=== PATIENT | male | born 1965 | race Caucasian/White ===

== ENCOUNTER 2018-03-18 21:26 | Emergency (ER) | payer OTHER ==
[2018-03-18] MEDS ORDERED: CODEINE 30MG/APAP 300MG TAB ONE (21:55)
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
== END 2018-03-19 00:10 | disposition home or self-care (01) ==
LOC: ER 21:26
DX: S02.80XA Fracture of other specified skull and facial bones, unspecified side, initial encounter for closed fracture (principal); Y04.8XXA Assault by other bodily force, initial encounter; Y93.89 Activity, other specified; Y92.89 Other specified places as the place of occurrence of the external cause; Z94.4 Liver transplant status; Z94.0 Kidney transplant status; I10 Essential (primary) hypertension
CPT/HCPCS: 70450; 70486; 76377; 99284

== ENCOUNTER 2018-12-20 11:12 | Emergency (ER) | payer OTHER ==
--- OUTSIDE RECORDS SUMMARY | 2018-12-20 11:18 | XMS REPORT | Clinical Summary ---
:1965 Author Organization [facility] Address [address] [place] [address] Care Team Providers Name Role Phone Hannah Perez MD Primary Care Provider Allergies Active Allergy Reactions Severity Noted Date Comments Adhesive Tape-Silicones 04/03/2018 Allergic to tape left on up to 3 days Doxercalciferol 10/22/2018 Medications Medication Sig Dispensed Refills Start Date End Date Status predniSONE Take 5 mg by 0 Active (DELTASONE) 5 mg mouth every tablet morning. tacrolimus Take 2 mg by 0 Active (PROGRAF) 1 MG mouth 2 (two) capsule times a day. LISINOPRIL ORAL Take by mouth 0 Active nightly. metoprolol TAKE 1 TABLET 180 tablet 0 12/02/2018 Active tartrate BY MOUTH TWICE (LOPRESSOR) 100 mg DAILY tablet ferrous sulfate Take by mouth. 0 Active (IRON ORAL) diltiazem Take 90 mg by 0 10/03/2014 Discontinued (CardIZEM) 120 MG mouth 2 (two) 8 tablet times a day. lisinopril Take 20 mg by 0 Discontinued (PRINIVIL,ZESTRIL) mouth nightly. 8 20 mg tablet metoprolol Take 100 mg by 0 10/03/2014 Discontinued tartrate mouth 2 (two) 9 (LOPRESSOR) 100 mg times a day. tablet tacrolimus Take 2 mg by 0 Discontinued (PROGRAF) 1 MG mouth 2 (two) 8 capsule times a day. darbepoetin Inject 0.3 mL 1.2 mL 0 08/26/2018 ailyn-polysorbate (60 mcg total) 8 (ARANESP) 60 under the skin mcg/0.3 mL once a week at syringeIndications 4pm for 30 : Anemia due to days. Renal Failure ferrous sulfate Take 1 tablet 60 tablet 0 08/23/2018 325 (65 FE) MG (325 mg total) 8 tablet by mouth 2 (two) times a day with meals for 30 days. multivitamin with Take 1 tablet 30 tablet 0 08/23/2018 minerals tablet by mouth daily 8 for 30 days. pantoprazole Take 1 tablet 30 tablet 0 08/24/2018 (PROTONIX) 40 MG (40 mg total) 8 EC tablet by mouth daily for 30 days. tacrolimus Take 2 120 capsule 0 08/24/2018 (PROGRAF) 1 MG capsules (2 mg 8 capsule total) by mouth 2 (two) times a day for 30 days. ramelteon Take 1 tablet 30 tablet 0 08/24/2018 (ROZEREM) 8 mg (8 mg total) 8 tablet by mouth nightly as needed for sleep for up to 30 days. acetaminophen-code Take 1 tablet 40 tablet 0 10/03/2018 ine (TYLENOL WITH by mouth every 9 CODEINE #3) 300-30 4 (four) hours mg per tablet as needed for moderate pain for up to 10 days. Active Problems Problem Noted Date Other complication due to venous access device 11/26/2018 Overview: Added automatically from request for surgery [id number] ESRD (end stage renal disease) 09/17/2018 Overview: Added automatically from request for surgery [id number] Severe protein-calorie malnutrition 08/19/2018 Acute hyperkalemia 08/19/2018 High anion gap metabolic acidosis 08/19/2018 HARVEY (acute kidney injury) 08/18/2018 Essential hypertension 12/21/2016 Overview: Last Assessment & Plan: Recently hypertensive with pressures to 170s/90s on diltiazem metoprolol and lisinopril. F/u with PCP regarding management of chronic hypertension. Mixed hyperlipidemia 12/21/2016 Overview: Last Assessment & Plan: He has hypertriglyceridemia and mild hypercholesterolemia. This might be a side effect from Rapamune. These will need to be monitored closely. We will check lipid panel and HbA1c before next visit to [facility] for other metabolic problems. You should have regular follow-up with PCP. Number for [facility] primary care office was given. Hx of kidney transplant 12/21/2016 Overview: Last Assessment & Plan: Worsening creatinine function. Most recently 2.48 in 06/2017, from 1.4 in 2013. Not currently requiring dialysis. States he was told to schedule an appt with his vascular surgeon for AV fistula creat ion in preparation of starting HD. He has not yet contact his surgeon for an appt. S/P liver transplant 12/21/2016 Overview: Last Assessment & Plan: He underwent OLT in 1989 for primary sclerosing cholangitis. Per chart review, graft function is good. No history of rejection. No evidence of recurrent PSC so far. IS managed by Dr. Mendoza. Encounters Date Type Specialty Care Team Description 12/12/2018 Orders Only Cardiovascular Andrade Tracy, ESRD (end stage renal disease) ([facility]) (Primary Dx); MA Other complication due to venous access device, initial encounter ( [facility]) 12/10/2018 Orders Only Cardiovascular TracyAndrade, MA 12/10/2018 Orders Only Cardiovascular TracyAndrade arango, ESRD (end stage MA renal disease) ([facility]) (Primary Dx) 12/07/2018 Anesthesia Event Vascular Surgery Hannah Nguyen MD 12/07/2018 Surgery Vascular Surgery Anahi Paz, RIGHT ARM FISTULOGRAM, ANGIOPLASTY, 12/07/2018 Hospital Encounter Vascular Surgery Anahi Paz, Other complication MD due to venous access device, initial encounter ([facility]) 12/07/2018 Hospital Encounter Radiology Anahi Paz, ESRD (end stage MD renal disease) on dialysis ([facility]) 12/06/2018 Telephone Family Medicine Hannah Perez MD 12/01/2018 Refill Nephrology Jatin Roque MD 12/01/2018 Refill Internal Medicine Brad Herrera DO 11/26/2018 Office Visit Cardiovascular Anahi Paz, Other complication due to venous access device, initial encounter ([facility]) (Primary Dx) 10/22/2018 Office Visit Cardiovascular Anahi Paz, ESRD (end stage MD renal disease) (HCC) (Primary Dx) 10/03/2018 Surgery Vascular Surgery Anahi Paz, creation right MD radiocephalic av fistula 10/03/2018 Anesthesia Event Vascular Surgery Dusty Seaman MD 10/03/2018 Hospital Encounter Vascular Surgery Anahi Paz MD 09/27/2018 Refill Internal Medicine Brad Herrera, 09/17/2018 Office Visit Cardiovascular Anahi Paz, ESRD (end stage MD renal disease) (HCC) (Primary Dx) 09/14/2018 Abstract Transplant Mary Blanc RN 09/14/2018 Documentation Transplant Cole, Patient call RAGHU Lucas 09/14/2018 Telephone Transplant Jayashree, Medication Problem; RAGHU Hernandez Complaint 09/05/2018 Orders Only Nephrology Laila Mcgee MA 09/04/2018 Telephone Family Medicine Hannah Perez MD 08/23/2018 Refill Internal Medicine Brad Herrera, 08/18/2018 Hospital Encounter General Internal Juanito Pendleton HARVEY (acute kidney injury) (HCC) (Primary Dx); - Medicine MD Alden Kidney transplant as cause of abnormal reaction or later complication; 08/24/2018 Jhoana Rosa, Acute right hip pain Rama Moreno MD 05/25/2018 Telephone Family Medicine Hannah Tyler MA 05/24/2018 Office Visit Family Medicine Chris, Serum potassium elevated ( Primary Dx); Hannah Kessler, Elevated serum creatinine; Muscular atrophy, unspecified site 04/03/2018 Pre-Admit Testing Pre-Admission Testing Diandra Porter Preop examination Appointment MD Maritza (Primary Dx) 03/01/2018 Orders Only Transplant Ladonna Suazo RN after 12/19/2017 Immunizations Name Dates Previously Given Next Due FLUCELVAX QUAD PF (0.5mL syringe) 08/24/2018 Social History Tobacco Use Types Packs/Day Years Used Date Former Smoker Smokeless Tobacco: Never Used Alcohol Use Drinks/Week oz/Week Comments No Sex Assigned at Date Recorded Not on file Job Start Date Occupation Industry Not on file Not on file Not on file Travel History Travel Start Travel End No recent travel history available. Last Filed Vital Signs Vital Sign Reading Time Taken Blood Pressure 117/72 12/07/2018 11:50 AM [employer] Pulse 70 12/07/2018 11:50 AM [employer] Temperature 36.6 C (97.8 F) 12/07/2018 11:50 AM [employer] Respiratory Rate 20 12/07/2018 11:50 AM [employer] Oxygen Saturation 100% 12/07/2018 11:50 AM [employer] Inhaled Oxygen Concentration - - Weight 49 kg (108 lb) 12/07/2018 8:10 AM [employer] Height 175.3 cm (5' 9") 12/07/2018 8:10 AM [employer] Body Mass Index 15.95 12/07/2018 8:10 AM [employer] Plan of Treatment Date Type Specialty Care Team Description 12/24/2018 Appointment Procedural Cardiology Anahi Paz MD [address] [facility] [address] [place] [id number] [phone] 12/31/2018 Appointment Radiology Anahi Paz MD [address] [facility] [address] [place] [address] [phone] 12/31/2018 Office Visit Cardiovascular Anahi Paz MD [address] [facility] [address] [place] [address] [id number] Health Maintenance Due Date Last Done Comments SHINGLES VACCINES (#1) 2014 COLON CANCER SCREENING 08/22/2028 08/22/2018 INFLUENZA VACCINE Completed 08/24/2018 Implants Implanted Type Area Lift Driver Device Shelf Model / Identifier Expiration Serial / Date Lot Clip Ligtng Weck Hemoclip Plus W/ Tape Ti Med - [id number] Medical Right: [employer] 03/27/2023 [id number] / Implanted: Qty: 1 on 10/03/2018 by Anahi Paz MD Clips for Arm, / Internal Use Upper [id number] Clip Ligtng [place] Hemoclip Plus W/ Tape Ti - [id number] Medical Right: WECK CLOSURE 10/30/2022 [id number] / Implanted: Qty: 2 on 10/03/2018 by Anahi Paz MD Clips for Arm, SYSTEMS / Internal Use Upper [id number] Procedures Procedure Name Priority Date/Time Associated Diagnosis Comments POC GLUCOSE Routine 12/07/2018 11:33 Results for this AM [employer] procedure are in the results section. OR FL < 1 HOUR Routine 12/07/2018 11:10 ESRD (end stage Results for this AM [employer] renal disease) on procedure are in dialysis (HCC) the results section. FISTULOGRAPHY, 12/07/2018 10:05 Other complication DIALYSIS SHUNT, AND AM [employer] due to venous access DECLOTTING device, initial encounter ([facility]) POC PANEL 4 Routine 12/07/2018 8:43 Results for this AM [employer] procedure are in the results section. US DUPLEX Routine 11/09/2018 10:14 ESRD (end stage Results for this HEMODIALYSIS AVG AVF AM [employer] renal disease) ([facility]) procedure are in ACCESS the results section. POC GLUCOSE Routine 10/03/2018 11:32 Results for this AM [employer] procedure are in the results section. POC GLUCOSE Routine 10/03/2018 9:57 Results for this AM [employer] procedure are in the results section. CREATION, AV FISTULA, 10/03/2018 8:00 ESRD (end stage UPPER EXTREMITY, AM [employer] renal disease) ([facility]) DISTAL Case Notes EXTENDED RECOVERY NEEDED, @[address] [place] [address] R/S FROM 09/24 TO 10/03-09/21/18TW Special Needs EXTENDED RECOVERY NEEDED ANESTHESIA PERIPHERAL BLOCK Routine 10/03/2018 7:53 AM [employer] Procedure Note - Dusty Seaman MD - 10/03/2018 7:53 AM [employer] Peripheral Block Performed by: Dusty Seaman MD Authorized by: Dusty Seaman MD Patient Location: Pre-op Start Time: 10/03/2018 7:40 AM End Time: 10/03/2018 7:50 AM Reason for Block: at surgeon's request, primary anesthetic Staff: Anesthesiologist: Dusty Seaman MD Performed by: Anesthesiologist Preprocedure: patient identified, IV checked, site and side verified, risks and benefits discussed, procedure verified, surgical consent complete, patient position confirmed, monitors and equipment checked, pre-op evaluation complete and site marked Time Out Performed: 10/03/2018 7:40 AM Peripheral Nerve Block: Patient Position: Supine Prep: ChloraPrep Monitoring: Blood pressure monitoring, heart rate and continuous pulse oximetry Block Type: Interscalene Laterality: Right Injection Technique: Single injection Procedures: ultrasound guided and nerve stimulator Ultrasound documentation: Printed/placed in chart Loss of Twitch: 0.2 mA Needle: Needle Type: Pajunk Needle Gauge: 19 G Needle Length: 2 in Assessment: Injection Assessment: Visualized needle/local anesthetic surrounding nerve , visualized pertinent vascular structures and nerves, needle tip visualized at all times during injection of medication, no symptoms of intraneural/intravenous injection and intermittent aspiration during local anesthetic administration Paresthesia Pain: None Heart Rate Change: No Slow Fractionated Injection: Yes Block outcome: No apparent complications, patient tolerated procedure well and patient comfortable Notes: Single uncomplicated block with good visualization of nerve and needle throughout POC PANEL 4 Routine 10/03/2018 6:54 Results for this AM [employer] procedure are in the results section. POC GLUCOSE Routine 08/24/2018 5:09 Results for this PM [employer] procedure are in the results section. POC GLUCOSE Routine 08/24/2018 1:49 Results for this PM [employer] procedure are in the results section. US VEIN MAPPING UPPER Routine 08/24/2018 12:30 Results for this EXTREMITY BILATERAL PM [employer] procedure are in the results section. POC GLUCOSE Routine 08/24/2018 8:04 Results for this AM [employer] procedure are in the results section. HC COMPLETE BLD COUNT Routine 08/24/2018 5:30 Results for this W/AUTO DIFF AM [employer] procedure are in the results section. FK506 TACROLIMUS LEVEL, Routine 08/24/2018 5:30 Results for this RANDOM AM [employer] procedure are in the results section. ESTIMATED GFR Routine 08/24/2018 4:00 Results for this AM [employer] procedure are in the results section. MAGNESIUM LEVEL Routine 08/24/2018 4:00 Results for this AM [employer] procedure are in the results section. PHOSPHORUS LEVEL Routine 08/24/2018 4:00 Results for this AM [employer] procedure are in the results section. BASIC METABOLIC PANEL Routine 08/24/2018 4:00 Results for this AM [employer] procedure are in the results section. POC GLUCOSE Routine 08/23/2018 9:12 Results for this PM [employer] procedure are in the results section. POC GLUCOSE Routine 08/23/2018 4:42 Results for this PM [employer] procedure are in the results section. POC GLUCOSE Routine 08/23/2018 12:18 Results for this PM [employer] procedure are in the results section. POC GLUCOSE Routine 08/23/2018 8:18 Results for this AM [employer] procedure are in the results section. HC COMPLETE BLD COUNT Routine 08/23/2018 5:10 Results for this W/AUTO DIFF AM [employer] procedure are in the results section. FK506 TACROLIMUS LEVEL, Routine 08/23/2018 5:10 Results for this RANDOM AM [employer] procedure are in the results section. ESTIMATED GFR Routine 08/23/2018 4:00 Results for this AM [employer] procedure are in the results section. PHOSPHORUS LEVEL Routine 08/23/2018 4:00 Results for this AM [employer] procedure are in the results section. MAGNESIUM LEVEL Routine 08/23/2018 4:00 Results for this AM [employer] procedure are in the results section. BASIC METABOLIC PANEL Routine 08/23/2018 4:00 Results for this AM [employer] procedure are in the results section. POC GLUCOSE Routine 08/22/2018 9:39 Results for this PM [employer] procedure are in the results section. POC GLUCOSE Routine 08/22/2018 5:27 Results for this PM [employer] procedure are in the results section. VENOUS BLOOD GAS Routine 08/22/2018 3:20 Results for this PM [employer] procedure are in the results section. HEMODIALYSIS Routine 08/22/2018 3:10 PM [employer] POC GLUCOSE Routine 08/22/2018 1:53 Results for this PM [employer] procedure are in the results section. US DUPLEX ARTERIAL Routine 08/22/2018 12:15 Results for this LOWER EXTREMITY PM [employer] procedure are in BILATERAL the results section. US DUPLEX VENOUS LOWER Routine 08/22/2018 10:42 Results for this EXTREMITY BILATERAL AM [employer] procedure are in the results section. OCCULT BLOOD, STOOL Routine 08/22/2018 7:30 Results for this AM [employer] procedure are in the results section. ESTIMATED GFR Routine 08/22/2018 6:10 Results for this AM [employer] procedure are in the results section. HEPATITIS ACUTE PANEL Routine 08/22/2018 6:10 Results for this AM [employer] procedure are in the results section. HIV AG/AB COMBINATION Routine 08/22/2018 6:10 Results for this AM [employer] procedure are in the results section. LDH Routine 08/22/2018 6:10 Results for this AM [employer] procedure are in the results section. HAPTOGLOBIN Routine 08/22/2018 6:10 Results for this AM [employer] procedure are in the results section. RETICULOCYTE COUNT Routine 08/22/2018 6:10 Results for this AM [employer] procedure are in the results section. FK506 TACROLIMUS LEVEL, Routine 08/22/2018 6:10 Results for this RANDOM AM [employer] procedure are in the results section. IONIZED CALCIUM Routine 08/22/2018 6:10 Results for this AM [employer] procedure are in the results section. PHOSPHORUS LEVEL Routine 08/22/2018 6:10 Results for this AM [employer] procedure are in the results section. MAGNESIUM LEVEL Routine 08/22/2018 6:10 Results for this AM [employer] procedure are in the results section. HC COMPLETE BLD COUNT Routine 08/22/2018 6:10 Results for this W/AUTO DIFF AM [employer] procedure are in the results section. BASIC METABOLIC PANEL Routine 08/22/2018 6:10 Results for this AM [employer] procedure are in the results section. POC GLUCOSE Routine 08/21/2018 7:31 Results for this PM [employer] procedure are in the results section. URINALYSIS SCREEN AND Routine 08/21/2018 4:00 Results for this MICROSCOPY, WITH REFLEX PM [employer] procedure are in TO CULTURE the results section. URINE CULTURE Routine 08/21/2018 4:00 Results for this PM [employer] procedure are in the results section. HEPATITIS B SURFACE Routine 08/21/2018 2:21 Results for this ANTIGEN PM [employer] procedure are in the results section. HEPATITIS B CORE Routine 08/21/2018 2:21 Results for this ANTIBODY TOTAL PM [employer] procedure are in the results section. HEPATITIS B SURFACE AB, Routine 08/21/2018 2:21 Results for this QUANTITATIVE PM [employer] procedure are in the results section. VENOUS BLOOD GAS Routine 08/21/2018 1:16 Results for this PM [employer] procedure are in the results section. POC GLUCOSE Routine 08/21/2018 12:32 Results for this PM [employer] procedure are in the results section. HEMOGLOBIN & HEMATOCRIT Routine 08/21/2018 12:15 Results for this PM [employer] procedure are in the results section. POC GLUCOSE Routine 08/21/2018 8:43 Results for this AM [employer] procedure are in the results section. HEMODIALYSIS Routine 08/21/2018 8:40 AM [employer]ER HC COMPLETE BLD COUNT Routine 08/21/2018 5:50 Results for this W/AUTO DIFF AM [employer] procedure are in the results section. ESTIMATED GFR Routine 08/21/2018 4:00 Results for this AM [employer] procedure are in the results section. IONIZED CALCIUM Routine 08/21/2018 4:00 Results for this AM [employer] procedure are in the results section. PHOSPHORUS LEVEL Routine 08/21/2018 4:00 Results for this AM [employer] procedure are in the results section. MAGNESIUM LEVEL Routine 08/21/2018 4:00 Results for this AM [employer] procedure are in the results section. BASIC METABOLIC PANEL Routine 08/21/2018 4:00 Results for this AM [employer] procedure are in the results section. POC GLUCOSE Routine 08/21/2018 1:04 Results for this AM [employer] procedure are in the results section. HEPATITIS B SURFACE Routine 08/20/2018 8:34 Results for this ANTIGEN PM [employer] procedure are in the results section. POC GLUCOSE Routine 08/20/2018 4:16 Results for this PM [employer] procedure are in the results section. HEMODIALYSIS Routine 08/20/2018 1:20 PM [employer]ER POC GLUCOSE Routine 08/20/2018 12:06 Results for this PM [employer] procedure are in the results section. POC GLUCOSE Routine 08/20/2018 9:59 Results for this AM [employer] procedure are in the results section. IR TUNNELED DIALYSIS Routine 08/20/2018 9:52 Results for this CATHETER PLACEMENT AM [employer] procedure are in the results section. POC GLUCOSE Routine 08/20/2018 8:15 Results for this AM [employer] procedure are in the results section. HC COMPLETE BLD COUNT Routine 08/20/2018 4:30 Results for this W/AUTO DIFF AM [employer] procedure are in the results section. ESTIMATED GFR Routine 08/20/2018 4:00 Results for this AM [employer] procedure are in the results section. IONIZED CALCIUM Routine 08/20/2018 4:00 Results for this AM [employer] procedure are in the results section. PHOSPHORUS LEVEL Routine 08/20/2018 4:00 Results for this AM [employer] procedure are in the results section. MAGNESIUM LEVEL Routine 08/20/2018 4:00 Results for this AM [employer] procedure are in the results section. BASIC METABOLIC PANEL Routine 08/20/2018 4:00 Results for this AM [employer] procedure are in the results section. POC GLUCOSE Routine 08/19/2018 9:17 Results for this PM [employer] procedure are in the results section. POTASSIUM LEVEL Routine 08/19/2018 6:47 Results for this PM [employer] procedure are in the results section. MRI LUMBAR SPINE WO Routine 08/19/2018 3:48 Results for this CONTRAST PM [employer] procedure are in the results section. XR CHEST 1 VW PORTABLE STAT 08/19/2018 11:46 Results for this AM [employer] procedure are in the results section. FK506 TACROLIMUS LEVEL, Routine 08/19/2018 8:49 Results for this RANDOM AM [employer] procedure are in the results section. ESTIMATED GFR Routine 08/19/2018 8:49 Results for this AM [employer] procedure are in the results section. BILIRUBIN DIRECT Routine 08/19/2018 8:49 Results for this AM [employer] procedure are in the results section. HC COMPLETE BLD COUNT Routine 08/19/2018 8:49 Results for this W/AUTO DIFF AM [employer] procedure are in the results section. ANTI XA, UNFRACTIONATED Routine 08/19/2018 8:49 Results for this AM [employer] procedure are in the results section. PROTHROMBIN TIME WITH Routine 08/19/2018 8:49 Results for this INR AM [employer] procedure are in the results section. PHOSPHORUS LEVEL Routine 08/19/2018 8:49 Results for this AM [employer] procedure are in the results section. MAGNESIUM LEVEL Routine 08/19/2018 8:49 Results for this AM [employer] procedure are in the results section. COMPREHENSIVE METABOLIC Routine 08/19/2018 8:49 Results for this PANEL AM [employer] procedure are in the results section. URIC ACID LEVEL Routine 08/19/2018 8:49 Results for this AM [employer] procedure are in the results section. OSMOLALITY, SERUM Routine 08/19/2018 8:48 Results for this AM [employer] procedure are in the results section. LOREN-SHARP VIRUS Routine 08/19/2018 8:34 Results for this ANTIBODY TEST AM [employer] procedure are in the results section. CREATININE LEVEL, Routine 08/19/2018 8:31 Results for this URINE, RANDOM AM [employer] procedure are in the results section. SODIUM LEVEL, URINE, Routine 08/19/2018 8:31 Results for this RANDOM AM [employer] procedure are in the results section. PREPARE RBC Timed 08/19/2018 8:20 Results for this AM [employer] procedure are in the results section. TYPE AND SCREEN Routine 08/19/2018 8:20 Results for this AM [employer] procedure are in the results section. VENOUS BLOOD GAS STAT 08/19/2018 8:20 Results for this AM [employer] procedure are in the results section. ECG 12-LEAD STAT 08/19/2018 8:14 Results for this AM [employer] procedure are in the results section. LACTIC ACID LEVEL STAT 08/19/2018 7:15 Results for this AM [employer] procedure are in the results section. HEMOGLOBIN A1C Routine 08/19/2018 3:00 Results for this AM [employer] procedure are in the results section. SEDIMENTATION RATE Timed 08/19/2018 3:00 Results for this AM [employer] procedure are in the results section. BK VIRUS BY PCR Timed 08/19/2018 3:00 Results for this AM [employer] procedure are in the results section. BLOOD CULTURE, AEROBIC Timed 08/19/2018 3:00 Results for this & ANAEROBIC AM [employer] procedure are in the results section. ESTIMATED GFR Timed 08/19/2018 1:00 Results for this AM [employer] procedure are in the results section. C-REACTIVE PROTEIN Timed 08/19/2018 1:00 Results for this AM [employer] procedure are in the results section. VITAMIN B12 LEVEL Timed 08/19/2018 1:00 Results for this AM [employer] procedure are in the results section. TOTAL IRON BINDING Timed 08/19/2018 1:00 Results for this CAPACITY AM PROPERTY ADJUSTER procedure are in the results section. FOLATE LEVEL Timed 08/19/2018 1:00 Results for this AM PROPERTY ADJUSTER procedure are in the results section. FERRITIN LEVEL Timed 08/19/2018 1:00 Results for this AM PROPERTY ADJUSTER procedure are in the results section. HEPATIC FUNCTION PANEL Timed 08/19/2018 1:00 Results for this AM PROPERTY ADJUSTER procedure are in the results section. BASIC METABOLIC PANEL Timed 08/19/2018 1:00 Results for this AM PROPERTY ADJUSTER procedure are in the results section. US RENAL TRANSPLANT STAT 08/19/2018 12:47 Results for this DOPPLER AM PROPERTY ADJUSTER procedure are in the results section. CT LOWER EXTREMITY WO STAT 08/18/2018 10:59 Results for this CONTRAST RIGHT PM PROPERTY ADJUSTER procedure are in the results section. XR PELVIS 3+ VW STAT 08/18/2018 8:22 Results for this PM PROPERTY ADJUSTER procedure are in the results section. XR FEMUR 2 VW RIGHT STAT 08/18/2018 8:22 Results for this PM PROPERTY ADJUSTER procedure are in the results section. ESTIMATED GFR STAT 08/18/2018 7:42 Results for this PM PROPERTY ADJUSTER procedure are in the results section. BASIC METABOLIC PANEL STAT 08/18/2018 7:42 Results for this PM PROPERTY ADJUSTER procedure are in the results section. PARTIAL THROMBOPLASTIN STAT 08/18/2018 7:42 Results for this TIME (PTT) PM PROPERTY ADJUSTER procedure are in the results section. PROTHROMBIN TIME WITH STAT 08/18/2018 7:42 Results for this INR PM PROPERTY ADJUSTER procedure are in the results section. HC COMPLETE BLD COUNT STAT 08/18/2018 7:42 Results for this W/AUTO DIFF PM PROPERTY ADJUSTER procedure are in the results section. COMPREHENSIVE METABOLIC Routine 05/24/2018 2:37 Serum potassium Results for this PANEL PM CDT elevated procedure are in Elevated serum the results creatinine section. ECG PRE/POST OP Routine 04/03/2018 1:32 Preop examination Results for this PM CDT procedure are in the results section. ZZESTIMATED GFR Routine 04/03/2018 1:23 Results for this PM CDT procedure are in the results section. CBC HEMOGRAM Routine 04/03/2018 1:23 Preop examination Results for this PM CDT procedure are in the results section. COMPREHENSIVE METABOLIC Routine 04/03/2018 1:23 Preop examination Results for this PANEL PM CDT procedure are in the results section. after 12/19/2017 Results POC glucose (12/07/2018 11:33 AM PROPERTY ADJUSTER)Only the most recent of22 resultswithin the time period is included. POC glucose 97 65 - 99 mg/dL [facility] Comment: [facility] Notified RN Meter ID: [id number] Business Office Manager: Cesarezequiel Lorenzana Performing Organization Address [facility]/Zipcode Phone Number [facility] DEPARTMENT OF PATHOLOGY AND [address] [place] [address] GENOMIC MEDICINE [facility] [address] [place] [address] [place] < 1 Hour (12/07/2018 11:10 AM PROPERTY ADJUSTER) Narrative Performed At EXAMINATION:[place] <1 HOUR [facility] C-arm fluoroscopy was requested in OR. Location: [place] [address] OR 1 Procedure: Right Upper Extremity Fistulogram W/ Angioplasty Start: 1044 End: 1110 Fluoro Time: 5:03 min Dose: 5.05 mGy Tech: SW IMPRESSION: Separate operative report will be issued by the physician performing the procedure. [id number] Procedure Note Interface, Radiology Results Incoming - 12/10/2018 5:46 PM PROPERTY ADJUSTER EXAMINATION: [place] < 1 HOUR C-arm fluoroscopy was requested in OR. Location: [place] [address] OR 1 Procedure: Right Upper Extremity Fistulogram W/ Angioplasty Start: 1044 End: 1110 Fluoro Time: 5:03 min Dose: 5.05 mGy Tech: SW IMPRESSION: Separate operative report will be issued by the physician performing the procedure. [id number] Performing Organization Address [facility] Phone Number [facility] [address] [place] [address] POC panel 4 (12/07/2018 8:43 AM PROPERTY ADJUSTER)Only the most recent of2 resultswithin the time period is included. POC sodium 135 135 - 148 mmol/L [facility] POC potassium 5.1 (H) 3.5 - 5.0 mmol/L [facility] POC hematocrit 39 (L) 41 - 51 % [facility] Comment: Meter ID: [id number] Business Office Manager: Benedicto Ellsworth POC glucose 122 (H) 65 - 99 mg/dL [facility] Performing Organization Address City/[facility]/Zipcode Phone Number [facility] DEPARTMENT OF PATHOLOGY AND [address] [place] [id number] [place] [address] MEDICINE [place] [phone] duplex hemodialysis avg avf access (11/09/2018 10:14 AM PROPERTY ADJUSTER) Narrative Performed At PERIPHERAL VASCULAR LABORATORY [facility] AV Graft - Fistula Report [address] [place], [place] Pat.Name:ANNIE CLARK.ID:[id number] .Date: 11/09/2018Refer.MD:ANAHI PAZ MD Exam Time: 9:25:00 AMStudy Type:AV Graft - Fistula Height:69inDOBAge: 1965,53Y Sex: MALESonogrphr: Parish Hartmann RVT TapeVol: IV, CPT - 4: 29259 Echo Event ID:[id number] Order ID:[id number] Reason for Study:ESRD; Radiocephalic AVF History / Clinical:Severe mulnutrition, H/o liver transplant 1989, H/o kidney transplant x 2 (2000 Race:C SUMMARY: DUPLEX SCAN OBSERVATIONS: RIGHT:The radiocephalic AVF is well visualized.Disturbed, pulsatile colorflow and Doppler signals are noted in the feeding radial artery, through the AVF anastomosis and into the draining cephalic vein.Increased colorflow disturbance is noted through the anastomosis. It appears that the blood is draining through the basilic vein in the upper arm. VOLUME FLOW:Right brachial artery 129 ml/min PHYSICIAN INTERPRETATION: 1.Volume flow rightbrachial artery is 129 ml/min 2.>50% juxta-anastomotic stenosis, rightradiocephalic AVF(ratio 4.7). 3. <50% stenosis right mid forearm radial artery (ratio 1.6). 4. Blood is draining through the basilic vein in the upper arm. MEASUREMENTS: GRAFT Right Anastomosis Radiocephalic:AV Fistula Anast LVH824 cm/s Right Basilic Dist Up Arm Radiocephalic:AV Fistula Basilic Dist Up27 cm/s Right Cephalic Forearm Mid Radiocephalic:AV Fistula Cephalic Vvnpmk05 cm/s Right Cephalic Forearm Prox Radiocephalic:AV Fistula Cephalic Gfvuje25 cm/s Right 1 cm Central Radiocephalic:AV Fistula 1 cm Central PS68 cm/s Right Brachial Dist Radiocephalic:AV Fistula Brachial A Dist62 cm/s Right Subclavian V Dist Radiocephalic:AV Fistula Subclavian V Di30 cm/s Right Basilic Prox Up Arm Radiocephalic:AV Fistula Basilic Prox Up17 cm/s Right Brachial Mid Radiocephalic:AV Fistula Brachial A Mid 64 cm/s Right Subclavian V Central Radiocephalic:AV Fistula Subclavian V Ce25 cm/s Right Radial Mid Radiocephalic:AV Fistula Radial A Mid PS 100 cm/s Right Cephalic Forearm Dist Radiocephalic:AV Fistula Cephalic Xiugqw13 cm/s Right Radial Dist Radiocephalic:AV Fistula Radial A Dist P 100 cm/s Right Radial Prox Radiocephalic:AV Fistula Radial A Prox P64 cm/s Right Basilic Mid Up Arm Radiocephalic:AV Fistula Basilic Mid Up 21 cm/s Right Axillary V Dist Radiocephalic:AV Fistula Axillary V Dist19 cm/s DOPPLER Ax V Dist Right Ax V Dist19 cm/s Signed 11/13/2018 02:11 PM Anahi Paz MD, RPVI Procedure Note Interface, Radiology Results In - 11/13/2018 2:11 PM [facility] PERIPHERAL VASCULAR LABORATORY AV Graft - Fistula Report [address] [facility], [place] [address] Pat.Name: ANNIE CLARK.ID: [id number] .Date: 11/09/2018 Refer.MD: ANAHI PAZ MD Exam Time: 9:25:00 AM Study Type:AV Graft - Fistula Height: 69in Age: 9 1965,53Y Sex: MALE Sonogrphr: Parish Hartmann, RVT Tape Vol: IV, CPT - 4: 62928 Echo Event ID:[id number] Order ID: [id number] Reason for Study:ESRD; Radiocephalic AVF History / Clinical:Severe mulnutrition, H/o liver transplant 1989, H/o kidney transplant x 2 (2000 Race: C SUMMARY: DUPLEX SCAN OBSERVATIONS: RIGHT: The radiocephalic AVF is well visualized. Disturbed, pulsatile colorflow and Doppler signals are noted in the feeding radial artery, through the AVF anastomosis and into the draining cephalic vein. Increased colorflow disturbance is noted through the anastomosis. It appears that the blood is draining through the basilic vein in the upper arm. VOLUME FLOW: Right brachial artery 129 ml/min PHYSICIAN INTERPRETATION: 1. Volume flow right brachial artery is 129 ml/min 2. >50% juxta-anastomotic stenosis, right radiocephalic AVF(ratio 4.7). 3. <50% stenosis right mid forearm radial artery (ratio 1.6). 4. Blood is draining through the basilic vein in the upper arm. MEASUREMENTS: GRAFT Right Anastomosis Radiocephalic:AV Fistula Anast PSV 474 cm/s Right Basilic Dist Up Arm Radiocephalic:AV Fistula Basilic Dist Up 27 cm/s Right Cephalic Forearm Mid Radiocephalic:AV Fistula Cephalic Forear 48 cm/s Right Cephalic Forearm Prox Radiocephalic:AV Fistula Cephalic Forear 98 cm/s Right 1 cm Central Radiocephalic:AV Fistula 1 cm Central PS 68 cm/s Right Brachial Dist Radiocephalic:AV Fistula Brachial A Dist 62 cm/s Right Subclavian V Dist Radiocephalic:AV Fistula Subclavian V Di 30 cm/s Right Basilic Prox Up Arm Radiocephalic:AV Fistula Basilic Prox Up 17 cm/s Right Brachial Mid Radiocephalic:AV Fistula Brachial A Mid 64 cm/s Right Subclavian V Central Radiocephalic:AV Fistula Subclavian V Ce 25 cm/s Right Radial Mid Radiocephalic:AV Fistula Radial A Mid PS 100 cm/s Right Cephalic Forearm Dist Radiocephalic:AV Fistula Cephalic Forear 77 cm/s Right Radial Dist Radiocephalic:AV Fistula Radial A Dist P 100 cm/s Right Radial Prox Radiocephalic:AV Fistula Radial A Prox P 64 cm/s Right Basilic Mid Up Arm Radiocephalic:AV Fistula Basilic Mid Up 21 cm/s Right Axillary V Dist Radiocephalic:AV Fistula Axillary V Dist 19 cm/s DOPPLER Ax V Dist Right Ax V Dist 19 cm/s Signed 11/13/2018 02:11 PM Anahi Paz MD, RPVI Performing Organization Address City/State/Zipcode Phone Number [facility] [address] [place] [address] Pv vein mapping upper extremity (08/24/2018 12:30 PM PROPERTY ADJUSTER) Narrative Performed At [facility] Vascular Ultrasound Laboratory Upper Extremity Vein Mapping Report [address]Name:ANNIE CLARK Pat.ID:[id number] .Date: 08/24/2018Refer.MD:NA OCONNOR MD Exam Time: 11:24:00 AM Study Type:UE Vein Mapping Height:69inWeight: 105lb BSA: 1.57 m2 DOBAge:1965,53Y Sex: MALESonogrphr: Светлана Kumari RVT Pat. Stat.:Inpatient Room:[address] TapeVol: , CPT - 4: G0365 Echo Event ID:[id number] Order ID:[id number] Reason for Study:Vein mapping for dialysis access. History / Clinical:Severe mulnutrition, H/o liver transplant 1989, H/o kidney transplant x 2 (2000 Procedures:Colorflow, Grayscale/2D, PPG waveform tracing, Pulsed wave Doppler Race:C SUMMARY: DUPLEX SCAN OBSERVATIONS Right Left IJNormal Normal SubclavianCatheter Normal AxillaryNormal Normal BrachialNormal Normal BasilicNormal Normal CephalicNormal Normal CephalicObstructed Normal RIGHT:Forcal segment of the cephalic vein in the forearms dilated and non-compressible with echogenic material with absent colorflow and Doppler signals.There is normal compressibility and no evidence of echogenic material noted within the lumen of the remaining visualized veins. Colorflow and Doppler signals are normal. Radial and ulnar arteries are patent with diffused calcified wall. Subclavian vein is not visualized due to the catheter. LEFT: There is normal compressibility and no evidence of echogenic material noted within the lumen of the visualized veins. Colorflow and Doppler signals are normal.Radial artery demonstrate absent colorflow and Doppler signals distally.There is diminised colorflow and monophasic Doppler signals noted in the proximal and mid radial artery.Ulnar artery is patent with diffused calcified wall. Palmar Arch waveform of 3rd digit RIGHTLEFT Radial arteryPatentOccluded Ulnar arteryDiminishedPatent PRELIMINARY FINDINGS 1. No evidence of deep venous thrombosis of the visualized veins. 2. Superficial venous thrombosis of focal segment of the right cephalic vein in the forearm. 3. Occluded left distal radial artery. 4. Palmar arch of the right hand is patent and radial artery is dominant. 5. Palmar arch of the leftsuggestUlnar artery is dominant and Occludedleftradial arteryaccordingto Duplex image. 6. Review the diagram for vein mapping. PHYSICIAN INTERPRETATION Venous examination of the both upper extremities and neck demonstrated superficial venous thrombosis of focal segment of the right cephalic vein in the forearm and occluded left distal radial artery. Palmar arch of the right hand is patent and radial artery is dominant. Palmar arch of the leftsuggestUlnar artery is dominant and Occludedleftradial arteryaccordingto Duplex image. Dimensions provided. MEASUREMENTS: UEVEINS Right Brachial Vein Antecube Brachial Vein A0.32 cm Brachial Vein A0.62 cm Right Brachial Artery Brachial Artery0.43 cm Right Cephalic Upper Arm Prox Cephalic Upper 0.13 cm Cephalic Upper 0.18 cm Right Cephalic Upper Arm Mid Cephalic Upper 0.13 cm Cephalic Upper 0.15 cm Right Cephalic Upper Arm Dist Cephalic Upper 0.08 cm Cephalic Upper 0.16 cm Right Cephalic Antecubital Fossa Cephalic Antecu0.11 cm Cephalic Antecu0.16 cm Right Cephalic Forearm Prox Cephalic Forear0.44 cm Cephalic Forear0.18 cm Right Cephalic Forearm Mid Cephalic Forear0.27 cm Cephalic Forear0.24 cm Right Basilic Upper Arm Prox Basilic Upper A0.52 cm Basilic Upper A0.23 cm Right Basilic Upper Arm Mid Basilic Upper A0.36 cm Basilic Upper A0.21 cm Right Basilic Upper Arm Dist Basilic Upper A0.22 cm Basilic Upper A0.24 cm Right Basilic Antecubital Fossa Basilic Antecub0.21 cm Basilic Antecub0.27 cm Right Basilic Forearm Prox Basilic Forearm0.11 cm Basilic Forearm0.11 cm Right Radial Artery Radial Artery A0.21 cm Right Ulnar Artery Ulnar Artery AP0.27 cm Left Cephalic Upper Arm Prox Cephalic Upper 0.21 cm Cephalic Upper 0.16 cm Left Cephalic Upper Arm Mid Cephalic Upper 0.19 cm Cephalic Upper 0.19 cm Left Cephalic Upper Arm Dist Cephalic Upper 0.22 cm Cephalic Upper 0.19 cm Left Cephalic Antecubital Fossa Cephalic Antecu0.44 cm Cephalic Antecu0.15 cm Left Cephalic Forearm Prox Cephalic Forear 0.2 cm Cephalic Forear0.15 cm Left Cephalic Forearm Mid Cephalic Forear0.24 cm Cephalic Forear0.15 cm Left Basilic Upper Arm Prox Basilic Upper A0.25 cm Basilic Upper A0.65 cm Left Basilic Upper Arm Mid Basilic Upper A0.19 cm Basilic Upper A0.22 cm Left Basilic Upper Arm Dist Basilic Upper A0.13 cm Basilic Upper A0.27 cm Left Basilic Antecubital Fossa Basilic Antecub 0.2 cm Basilic Antecub0.15 cm Left Basilic Forearm Prox Basilic Forearm 0.1 cm Basilic Forearm0.17 cm Left Basilic Forearm Mid Basilic Forearm0.09 cm Basilic Forearm0.15 cm Left Brachial Vein Antecube Brachial Vein A0.43 cm Brachial Vein A0.54 cm Left Brachial Artery Brachial Artery0.49 cm Left Radial Artery Radial Artery A0.15 cm Left Ulnar Artery Ulnar Artery AP0.26 cm Signed 08/24/2018 11:06 PM Ministerio Wall MD, RPVI Procedure Note Interface, Radiology Results In - 08/24/2018 11:07 PM [facility] Vascular Ultrasound Laboratory Upper Extremity Vein Mapping Report [address] [place] [address] Pat.Name: ANNIE CLARK Pat.ID: [id number] St.Date: 08/24/2018 Refer.MD: NA OCONNOR MD Exam Time: 11:24:00 AM Study Type:UE Vein Mapping Height: 69in Weight: 105lb BSA: 1.57 m2 Age: 9 1965,53Y Sex: MALE Sonogrphr: Светлана Kumari RVT Pat. Stat.:Inpatient Room: [address] Tape Vol: YM, CPT - 4: G0365 Echo Event ID:[id number] Order ID: [id number] Reason for Study:Vein mapping for dialysis access. History / Clinical:Severe mulnutrition, H/o liver transplant 1989, H/o kidney transplant x 2 (2000 Procedures:Colorflow, Grayscale/2D, PPG waveform tracing, Pulsed wave Doppler Race: C SUMMARY: DUPLEX SCAN OBSERVATIONS Right Left IJ Normal Normal Subclavian Catheter Normal Axillary Normal Normal Brachial Normal Normal Basilic Normal Normal Cephalic Normal Normal Cephalic Obstructed Normal RIGHT:Forcal segment of the cephalic vein in the forearms dilated and non-compressible with echogenic material with absent colorflow and Doppler signals.There is normal compressibility and no evidence of echogenic material noted within the lumen of the remaining visualized veins. Colorflow and Doppler signals are normal. Radial and ulnar arteries are patent with diffused calcified wall. Subclavian vein is not visualized due to the catheter. LEFT: There is normal compressibility and no evidence of echogenic material noted within the lumen of the visualized veins. Colorflow and Doppler signals are normal. Radial artery demonstrate absent colorflow and Doppler signals distally. There is diminised colorflow and monophasic Doppler signals noted in the proximal and mid radial artery. Ulnar artery is patent with diffused calcified wall. Palmar Arch waveform of 3rd digit RIGHT LEFT Radial artery Patent Occluded Ulnar artery Diminished Patent PRELIMINARY FINDINGS 1. No evidence of deep venous thrombosis of the visualized veins. 2. Superficial venous thrombosis of focal segment of the right cephalic vein in the forearm. 3. Occluded left distal radial artery. 4. Palmar arch of the right hand is patent and radial artery is dominant. 5. Palmar arch of the left suggest Ulnar artery is dominant and Occluded left radial artery according to Duplex image. 6. Review the diagram for vein mapping. PHYSICIAN INTERPRETATION Venous examination of the both upper extremities and neck demonstrated superficial venous thrombosis of focal segment of the right cephalic vein in the forearm and occluded left distal radial artery. Palmar arch of the right hand is patent and radial artery is dominant. Palmar arch of the left suggest Ulnar artery is dominant and Occluded left radial artery according to Duplex image. Dimensions provided. MEASUREMENTS: UEVEINS Right Brachial Vein Antecube Brachial Vein A 0.32 cm Brachial Vein A 0.62 cm Right Brachial Artery Brachial Artery 0.43 cm Right Cephalic Upper Arm Prox Cephalic Upper 0.13 cm Cephalic Upper 0.18 cm Right Cephalic Upper Arm Mid Cephalic Upper 0.13 cm Cephalic Upper 0.15 cm Right Cephalic Upper Arm Dist Cephalic Upper 0.08 cm Cephalic Upper 0.16 cm Right Cephalic Antecubital Fossa Cephalic Antecu 0.11 cm Cephalic Antecu 0.16 cm Right Cephalic Forearm Prox Cephalic Forear 0.44 cm Cephalic Forear 0.18 cm Right Cephalic Forearm Mid Cephalic Forear 0.27 cm Cephalic Forear 0.24 cm Right Basilic Upper Arm Prox Basilic Upper A 0.52 cm Basilic Upper A 0.23 cm Right Basilic Upper Arm Mid Basilic Upper A 0.36 cm Basilic Upper A 0.21 cm Right Basilic Upper Arm Dist Basilic Upper A 0.22 cm Basilic Upper A 0.24 cm Right Basilic Antecubital Fossa Basilic Antecub 0.21 cm Basilic Antecub 0.27 cm Right Basilic Forearm Prox Basilic Forearm 0.11 cm Basilic Forearm 0.11 cm Right Radial Artery Radial Artery A 0.21 cm Right Ulnar Artery Ulnar Artery AP 0.27 cm Left Cephalic Upper Arm Prox Cephalic Upper 0.21 cm Cephalic Upper 0.16 cm Left Cephalic Upper Arm Mid Cephalic Upper 0.19 cm Cephalic Upper 0.19 cm Left Cephalic Upper Arm Dist Cephalic Upper 0.22 cm Cephalic Upper 0.19 cm Left Cephalic Antecubital Fossa Cephalic Antecu 0.44 cm Cephalic Antecu 0.15 cm Left Cephalic Forearm Prox Cephalic Forear 0.2 cm Cephalic Forear 0.15 cm Left Cephalic Forearm Mid Cephalic Forear 0.24 cm Cephalic Forear 0.15 cm Left Basilic Upper Arm Prox Basilic Upper A 0.25 cm Basilic Upper A 0.65 cm Left Basilic Upper Arm Mid Basilic Upper A 0.19 cm Basilic Upper A 0.22 cm Left Basilic Upper Arm Dist Basilic Upper A 0.13 cm Basilic Upper A 0.27 cm Left Basilic Antecubital Fossa Basilic Antecub 0.2 cm Basilic Antecub 0.15 cm Left Basilic Forearm Prox Basilic Forearm 0.1 cm Basilic Forearm 0.17 cm Left Basilic Forearm Mid Basilic Forearm 0.09 cm Basilic Forearm 0.15 cm Left Brachial Vein Antecube Brachial Vein A 0.43 cm Brachial Vein A 0.54 cm Left Brachial Artery Brachial Artery 0.49 cm Left Radial Artery Radial Artery A 0.15 cm Left Ulnar Artery Ulnar Artery AP 0.26 cm Signed 08/24/2018 11:06 PM Ministerio Wall MD, RPVI Performing Organization Address City/State/Zipcode Phone Number [facility] [address] [place] [address] FK506 level (08/24/2018 5:30 AM PROPERTY ADJUSTER)Only the most recent of4 resultswithin the time period is included. FK506 level 12.1 ng/mL [facility] Comment: Therapeutic range 5-20 ng/mL for 12 hour trough. The range varies depending on the organ transplanted, time after transplantation and co-administered immunosuppressant therapies. Please use clinical judgment to interpret test result. Test performed using Vadd[employer] Blanket Binder chemiluminescent microparticle immunoassay for Tacrolimus on the CUTTER OPERATOR TILE i System. Specimen Blood Performing Organization Address City/[facility] Phone Number [facility] DEPARTMENT OF PATHOLOGY AND [address] [place] [address] [address] CBC with platelet and differential (08/24/2018 5:30 AM PROPERTY ADJUSTER)Only the most recent of7 resultswithin the time period is included. WBC 9.84 4.50 - 11.00 k/uL [facility] RBC 2.79 (L) 4.40 - 6.00 m/uL [facility] HGB 8.8 (L) 14.0 - 18.0 g/dL [facility] HCT 28.7 (L) 41.0 - 51.0 % [facility] MCV 102.9 (H) 82.0 - 100.0 fL [facility] MCH 31.5 27.0 - 34.0 pg [facility] MCHC 30.7 (L) 31.0 - 37.0 g/dL [facility] RDW - SD 52.9 37.0 - 55.0 fL [facility] MPV 10.0 8.8 - 13.2 fL [facility] Platelet count 260 150 - 400 k/uL [facility] Nucleated RBC 0.00 /100 WBC [facility] Neutrophils 58.0 39.0 - 69.0 % [facility] Lymphocytes 31.6 25.0 - 45.0 % [facility] Monocytes 7.2 0.0 - 10.0 % [facility] Eosinophils 1.8 0.0 - 5.0 % [facility] Basophils 0.4 0.0 - 1.0 % [facility] Immature granulocytes 1.0Comment: "Immature 0.0 - 1.0 % [facility] granulocytes" HOSPITAL (promyelocytes, myelocytes, metamyelocytes) Specimen Blood Performing Organization Address City/[facility] Vegas[facility] Phone Number [facility] DEPARTMENT OF PATHOLOGY AND [address] [address] Estimated GFR (08/24/2018 4:00 AM PROPERTY ADJUSTER)Only the most recent of8 resultswithin the time period is included. Estimated GFR 19 (A) mL/min/1.73 m2 [facility] Comment: HOSPITAL CatergoryUnitsInterpretation G1 >=90 Normal or high G2 60-89Mildly decreased L1z28-13Kfjncu to moderately decreased X4x37-74Tflzznzwia to severely decreased G4 15-29Severely decreased G5 <15Kidney failure The eGFR was calculated using the Chronic Kidney Disease Epidemiology Collaboration (CKD-EPI) equation. Interpretation is based on recommendations of the National Kidney Foundation-Kidney Disease Outcomes Quality Initiative (NKF-KDOQI) published in 2014. Specimen Plasma specimen Performing Organization Address City/[facility] Phone Number [facility] DEPARTMENT OF PATHOLOGY AND [address] [place] [address] Phosphorus level (08/24/2018 4:00 AM PROPERTY ADJUSTER)Only the most recent of6 resultswithin the time period is included. Phosphorus 2.7 2.4 - 4.5 mg/dL [facility] Specimen Plasma specimen Performing Organization Address City/[facility] Phone Number [facility] DEPARTMENT OF PATHOLOGY AND [address] [place] [phone] Magnesium level (08/24/2018 4:00 AM PROPERTY ADJUSTER)Only the most recent of6 resultswithin the time period is included. Magnesium 1.9 1.6 - 2.6 mg/dL [facility] Specimen Plasma specimen Performing Organization Address City/[facility] [place] Phone Number [facility] DEPARTMENT OF PATHOLOGY AND [address] [place] [address] Basic metabolic panel (08/24/2018 4:00 AM PROPERTY ADJUSTER)Only the most recent of7 resultswithin the time period is included. Sodium 133 (L) 135 - 148 mEq/L [facility] Potassium 3.1 (L) 3.5 - 5.0 mEq/L [facility] Chloride 96 (L) 98 - 112 mEq/L [facility] CO2 23 (L) 24 - 31 mEq/L [facility] Anion gap 14@ANIO 7 - 15 mEq/L [facility] BUN 37 (H) 6 - 20 mg/dL [facility] Creatinine 3.51 (H)Comment: Called RN 0.70 - 1.20 mg/dL [facility] anuja; pt is kidney patient, results expected. Glucose 204 (H) 65 - 99 mg/dL [facility] Calcium 9.2 8.3 - 10.2 mg/dL [facility] Specimen Plasma specimen Performing Organization Address City/[facility] [place] Phone Number [facility] DEPARTMENT OF PATHOLOGY AND [address] [place] [address] Venous blood gas (08/22/2018 3:20 PM PROPERTY ADJUSTER)Only the most recent of3 resultswithin the time period is included. pH, venous 7.40 7.32 - 7.42 [facility] pCO2, venous 46 45 - 51 mmHg [facility] pO2, venous 38 25 - 40 mmHg [facility] Base excess, venous 3 (H) -2 - 2 meq/L [facility] O2 saturation, venous 74 (H) 40 - 70 % [facility] Bicarbonate, venous 27.3 21.0 - 28.0 mmol/L [facility] Specimen Blood Performing Organization Address City/[facility] Phone Number [facility] DEPARTMENT OF PATHOLOGY AND [address] [place] [address] Pv duplex arterial lower extremity (08/22/2018 12:15 PM PROPERTY ADJUSTER) Narrative Performed At [facility] Vascular Ultrasound Laboratory Lower Extremity Arterial Duplex Report [address] [place] [address] Pat.Name:ANNIE CLARK Shannan.ID:[id number] .Date: 08/22/2018Refer.MD:RAMA KOLB MD Exam Time: 10:45:00 AM Study Type:LE Arterial Height:69inWeight: 105lb BSA: 1.57 m2 DOBAge:1965,53Y Sex: MALE Sonogrphr: Nicole Michael, ZACK, RVT Pat. Stat.:Inpatient Room:[address] TapeVol: ED, CPT - 4: 20997 Echo Event ID:[id number] Order ID:[id number] Reason for Study:Leg pain History / Clinical:Severe mulnutrition, H/o liver transplant 1989, H/o kidney transplant x 2 (2000 Procedures:Ankle/brachial pressures, Colorflow, Digit pressures, Grayscale/2D, PPG waveform tracing, Pulsed wave Doppler Race:C SUMMARY: DUPLEX SCAN OBSERVATIONS: RIGHT: The proximal common femoral artery is patent with low velocity and monophasic Doppler signals, suggestive of obstruction beyond the area of visualization.There is hard and soft plaque noted in the lumen of distal common femoral artery, creating Colorflow disturbance and elevated velocity (ratio 1:3.9). There is Colorflow disturbance with elevated velocities in the proximal superficial femoral (ratio 1:2) and in the mid posterior tibial (ratio 1:3,5)arteries. The profunda femoris,popliteal,peroneal and anterior tibial arteries are patent with scattered and diffuse calcified plaque and monophasic Doppler signals. LEFT: There is scattered and diffuse calcified plaque throughout arterial system. The common femoral, profunda femoris, superficial femoral, popliteal, posterior tibial, peroneal and anterior tibial arteries are patent with triphasic/biphasic Doppler signals. ANKLE/BRACHIAL INDEX: RIGHTLEFT Brachial Artery Pressure 191 [id number] mmHg DP>255 mmHg>255 mmHg PT>255 mmHg>255 mmHg CESAR DPNon-compressible Non-compressible CESAR PTNon-compressible Non-compressible TOE/BRACHIAL INDEX: Great Toe55 [id number] mmHg TBI0.29 0.77 PRELIMINARY FINDINGS: 1. Monophasic Doppler signals with low flow velocity in the right proximal common femoral artery, suggestive of obstruction beyond the area of visualization. >75% stenosis of the right distal common femoral artery with hard and soft plaque. 2. >50% stenosis of the right mid posterior tibial artery. 3. The bilateral CESAR's are not obtainable due to non-compressible arteries. 4. The right toe pressure and TBI are within moderate-severe obstructive range; the left toe pressure and TBI's are within normal range. PHYSICIAN INTERPRETATION: Bilateral lower extremity arterial exam demonstratesmore than 75% stenosis of the right distal common femoral artery with hard and soft plaque and 50% stenosis of the right proximal superficial femoral artery and >50% stenosis of the right mid posterior tibial artery. Calcificatoins. The right toe pressure and TBI are within moderate-severe obstructive range; the left toe pressure and TBI's are within normal range. MEASUREMENTS: DOPPLER Left MARY Dist MARY Dist PSV68.7 cm/s Left MARY Mid MARY Mid PSV 64 cm/s Peroneal Mid Peroneal Mid PS38 cm/s Peroneal Mid PS 9 cm/s Peroneal Prox Peroneal Prox P30 cm/s Right MARY Dist MARY Dist PSV14.9 cm/s CLASS C TRUCK DRIVER Mid CLASS C TRUCK DRIVER Mid PSV 20 cm/s Right Profunda Profunda PSV19 cm/s SFA Right SFA Prox0 mmHg SFA Prox SFA Prox PSV17 cm/s Right CONTINUITY DIRECTOR Prox CONTINUITY DIRECTOR Prox PSV20 cm/s Right CONTINUITY DIRECTOR Dist CONTINUITY DIRECTOR Dist PSV78 cm/s Right SFA Prox 1 SFA Prox 1 PSV34 cm/s Right SFA Mid SFA Mid PSV 21 cm/s Right SFA Dist SFA Dist PSV24 cm/s Right Pop Prox Pop Prox PSV17 cm/s Right Pop Dist Pop Dist PSV16 cm/s Right CLASS C TRUCK DRIVER Prox CLASS C TRUCK DRIVER Prox PSV26 cm/s Right CLASS C TRUCK DRIVER Mid 1 CLASS C TRUCK DRIVER Mid 1 PSV 70 cm/s Right CLASS C TRUCK DRIVER Distal CLASS C TRUCK DRIVER Distal PSV46 cm/s Right Peroneal Prox Peroneal Prox P11 cm/s Right Peroneal Dist Peroneal Dist P12 cm/s Right MARY Prox MARY Prox PSV14 cm/s Right MARY Mid MARY Mid PSV 12 cm/s Right MARY Distal MARY Distal PSV15 cm/s Left CONTINUITY DIRECTOR Prox CONTINUITY DIRECTOR Prox PSV83 cm/s Left CONTINUITY DIRECTOR Dist CONTINUITY DIRECTOR Dist PSV90 cm/s Left Profunda Profunda PSV94 cm/s Left SFA Prox SFA Prox PSV60 cm/s Left SFA Mid SFA Mid PSV 79 cm/s Left SFA Dist SFA Dist PSV53 cm/s Left Pop Prox Pop Prox PSV41 cm/s Left Pop Dist Pop Dist PSV52 cm/s Left CLASS C TRUCK DRIVER Prox CLASS C TRUCK DRIVER Prox PSV52 cm/s Left CLASS C TRUCK DRIVER Mid CLASS C TRUCK DRIVER Mid PSV 68 cm/s Left CLASS C TRUCK DRIVER Distal CLASS C TRUCK DRIVER Distal PSV61 cm/s Left Peroneal Dist Peroneal Dist P28 cm/s Left MARY Prox MARY Prox PSV55 cm/s Left MARY Distal MARY Distal PSV69 cm/s Signed 08/22/2018 05:18 PM Ministerio Wall MD, RPVI Procedure Note Interface, Radiology Results In - 08/22/2018 5:19 PM PROPERTY ADJUSTER Vascular Ultrasound Laboratory Lower Extremity Arterial Duplex Report [address] [place] [address] Pat.Name: ANNIE CLARK.ID: [id number] .Date: 08/22/2018 Refer.MD: RAMA KOLB MD Exam Time: 10:45:00 AM Study Type:LE Arterial Height: 69in Weight: 105lb BSA: 1.57 m2 Age: 9 1965,53Y Sex: MALE Sonogrphr: Nicole Michael RDCS, RVT Pat. Stat.:Inpatient Room: [address] Vol: ED, CPT - 4: 04700 Echo Event ID:[id number] Order ID: [id number] Reason for Study:Leg pain History / Clinical:Severe mulnutrition, H/o liver transplant 1989, H/o kidney transplant x 2 (2000 Procedures:Ankle/brachial pressures, Colorflow, Digit pressures, Grayscale/2D, PPG waveform tracing, Pulsed wave Doppler Race: C SUMMARY: DUPLEX SCAN OBSERVATIONS: RIGHT: The proximal common femoral artery is patent with low velocity and monophasic Doppler signals, suggestive of obstruction beyond the area of visualization.There is hard and soft plaque noted in the lumen of distal common femoral artery, creating Colorflow disturbance and elevated velocity (ratio 1:3.9). There is Colorflow disturbance with elevated velocities in the proximal superficial femoral (ratio 1:2) and in the mid posterior tibial (ratio 1:3,5) arteries. The profunda femoris, popliteal, peroneal and anterior tibial arteries are patent with scattered and diffuse calcified plaque and monophasic Doppler signals. LEFT: There is scattered and diffuse calcified plaque throughout arterial system. The common femoral, profunda femoris, superficial femoral, popliteal, posterior tibial, peroneal and anterior tibial arteries are patent with triphasic/biphasic Doppler signals. ANKLE/BRACHIAL INDEX: RIGHT LEFT Brachial Artery Pressure 191 mmHg 178 mmHg DP >255 mmHg >255 mmHg PT >255 mmHg >255 mmHg CESAR DP Non-compressible Non-compressible CESAR PT Non-compressible Non-compressible TOE/BRACHIAL INDEX: Great Toe 55 mmHg 148 mmHg TBI 0.29 0.77 PRELIMINARY FINDINGS: 1. Monophasic Doppler signals with low flow velocity in the right proximal common femoral artery, suggestive of obstruction beyond the area of visualization. >75% stenosis of the right distal common femoral artery with hard and soft plaque. 2. >50% stenosis of the right mid posterior tibial artery. 3. The bilateral CESAR's are not obtainable due to non-compressible arteries. 4. The right toe pressure and TBI are within moderate-severe obstructive range; the left toe pressure and TBI's are within normal range. PHYSICIAN INTERPRETATION: Bilateral lower extremity arterial exam demonstrates more than 75% stenosis of the right distal common femoral artery with hard and soft plaque and 50% stenosis of the right proximal superficial femoral artery and >50% stenosis of the right mid posterior tibial artery. Calcificatoins. The right toe pressure and TBI are within moderate-severe obstructive range; the left toe pressure and TBI's are within normal range. MEASUREMENTS: DOPPLER Left MRAY Dist MARY Dist PSV 68.7 cm/s Left MARY Mid MARY Mid PSV 64 cm/s Peroneal Mid Peroneal Mid PS 38 cm/s Peroneal Mid PS 9 cm/s Peroneal Prox Peroneal Prox P 30 cm/s Right MARY Dist MARY Dist PSV 14.9 cm/s CLASS C TRUCK DRIVER Mid CLASS C TRUCK DRIVER Mid PSV 20 cm/s Right Profunda Profunda PSV 19 cm/s SFA Right SFA Prox 0 mmHg SFA Prox SFA Prox PSV 17 cm/s Right CONTINUITY DIRECTOR Prox CONTINUITY DIRECTOR Prox PSV 20 cm/s Right CONTINUITY DIRECTOR Dist CONTINUITY DIRECTOR Dist PSV 78 cm/s Right SFA Prox 1 SFA Prox 1 PSV 34 cm/s Right SFA Mid SFA Mid PSV 21 cm/s Right SFA Dist SFA Dist PSV 24 cm/s Right Pop Prox Pop Prox PSV 17 cm/s Right Pop Dist Pop Dist PSV 16 cm/s Right CLASS C TRUCK DRIVER Prox CLASS C TRUCK DRIVER Prox PSV 26 cm/s Right CLASS C TRUCK DRIVER Mid 1 CLASS C TRUCK DRIVER Mid 1 PSV 70 cm/s Right CLASS C TRUCK DRIVER Distal CLASS C TRUCK DRIVER Distal PSV 46 cm/s Right Peroneal Prox Peroneal Prox P 11 cm/s Right Peroneal Dist Peroneal Dist P 12 cm/s Right MARY Prox MARY Prox PSV 14 cm/s Right MARY Mid MARY Mid PSV 12 cm/s Right MARY Distal MARY Distal PSV 15 cm/s Left CONTINUITY DIRECTOR Prox CONTINUITY DIRECTOR Prox PSV 83 cm/s Left CONTINUITY DIRECTOR Dist CONTINUITY DIRECTOR Dist PSV 90 cm/s Left Profunda Profunda PSV 94 cm/s Left SFA Prox SFA Prox PSV 60 cm/s Left SFA Mid SFA Mid PSV 79 cm/s Left SFA Dist SFA Dist PSV 53 cm/s Left Pop Prox Pop Prox PSV 41 cm/s Left Pop Dist Pop Dist PSV 52 cm/s Left CLASS C TRUCK DRIVER Prox CLASS C TRUCK DRIVER Prox PSV 52 cm/s Left CLASS C TRUCK DRIVER Mid CLASS C TRUCK DRIVER Mid PSV 68 cm/s Left CLASS C TRUCK DRIVER Distal CLASS C TRUCK DRIVER Distal PSV 61 cm/s Left Peroneal Dist Peroneal Dist P 28 cm/s Left MARY Prox MARY Prox PSV 55 cm/s Left MARY Distal MARY Distal PSV 69 cm/s Signed 08/22/2018 05:18 PM Ministerio Wall MD, VI Performing Organization Address City/State/Zipcode Phone Number [facility] [address] [place] [address] Pv duplex venous lower extremity (08/22/2018 10:42 AM PROPERTY ADJUSTER) Narrative Performed At [facility] Vascular Ultrasound Laboratory Lower Extremity Venous Report [id number] [address] Pat.Name:ANNIE CLARK Pat.ID:[id number] .Date: 08/22/2018Refer.MD:RAMA KOLB MD Exam Time: 10:02:00 AM Study Type:LE Venous Height:69inWeight: 105lb BSA: 1.57 m2 DOBAge:1965,53Y Sex: MALE Sonogrphr: Nicole Michael RDCS, RVT Pat. Stat.:Inpatient Room:[address] TapeVol: ED, CPT - 4: 06732 Echo Event ID:[id number] Order ID:[id number] Reason for Study:Leg swelling and pain, DVT suspected History / Clinical:Severe mulnutrition, H/o liver transplant 1989, H/o kidney transplant x 2 (2000 Procedures:Colorflow, Grayscale/2D, Pulsed wave Doppler Race:C SUMMARY: * Normal Reflux Criteria:< 0.5 seconds * Abnormal Reflux Criteria:> or equal to 0.5 seconds DUPLEX SCAN OBSERVATIONS Deep VeinsSuperficial Veins RightLeft RightLeft GSV (prox) NormalNormal CFV Normal Normal (above knee) Femoral Normal Normal GSV (dist) Normal Normal Profunda Normal Normal (below knee) Popliteal Normal Normal PT (prox) Normal NormalSSV Normal Normal PT (dist) Normal Normal Peroneal Normal Normal RIGHT:There is normal compressibility with no evidence of echogenic material noted within the lumen of the visualized veins. Colorflow and Doppler signals are normal. LEFT:There is normal compressibility with no evidence of echogenic material noted within the lumen of the visualized veins. Colorflow and Doppler signals are normal. PRELIMINARY FINDINGS 1. Normal venous duplex exam of the visualized veins bilaterally. PHYSICIAN INTERPRETATION Venous examination of the both lower extremities demonstrated no evidence of venous thrombosis in the visualized veins.Normal compressibility and augmentation of all veins visualized. Signed 08/22/2018 02:49 PM Ministerio Wall MD, RPVI Procedure Note Interface, Radiology Results In - 08/22/2018 2:50 PM [facility] Vascular Ultrasound Laboratory Lower Extremity Venous Report [address] [place] [address] Pat.Name: ANNEI CLARK.ID: [id number] St.Date: 08/22/2018 Refer.MD: RAMA KOLB MD Exam Time: 10:02:00 AM Study Type:LE Venous Height: 69in Weight: 105lb BSA: 1.57 m2 Age: 10 1965,53Y Sex: MALE Sonogrphr: Nicole Michael RDCS, RVT Pat. Stat.:Inpatient Room: [address] Vol: ED, CPT - 4: 94615 Echo Event ID:[id number] Order ID: [id number] Reason for Study:Leg swelling and pain, DVT suspected History / Clinical:Severe mulnutrition, H/o liver transplant 1989, H/o kidney transplant x 2 (2000 Procedures:Colorflow, Grayscale/2D, Pulsed wave Doppler Race: C SUMMARY: * Normal Reflux Criteria: < 0.5 seconds * Abnormal Reflux Criteria: > or equal to 0.5 seconds DUPLEX SCAN OBSERVATIONS Deep Veins Superficial Veins Right Left Right Left GSV (prox) Normal Normal CFV Normal Normal (above knee) Femoral Normal Normal GSV (dist) Normal Normal Profunda Normal Normal (below knee) Popliteal Normal Normal PT (prox) Normal Normal SSV Normal Normal PT (dist) Normal Normal Peroneal Normal Normal RIGHT: There is normal compressibility with no evidence of echogenic material noted within the lumen of the visualized veins. Colorflow and Doppler signals are normal. LEFT: There is normal compressibility with no evidence of echogenic material noted within the lumen of the visualized veins. Colorflow and Doppler signals are normal. PRELIMINARY FINDINGS 1. Normal venous duplex exam of the visualized veins bilaterally. PHYSICIAN INTERPRETATION Venous examination of the both lower extremities demonstrated no evidence of venous thrombosis in the visualized veins. Normal compressibility and augmentation of all veins visualized. Signed 08/22/2018 02:49 PM Ministerio Wall MD, RPVI Performing Organization Address City/[facility]/Zipcode Phone Number [facility] [address] [place] [address] Occult blood, stool (08/22/2018 7:30 AM PROPERTY ADJUSTER) Occult blood, stool Negative for occult blood. [facility] Comment: Specimen Information Specimen Source: Stool Specimen Site: Nonpreserved Specimen Stool - Nonpreserved Performing Organization Address [facility] [place] Phone Number [facility] DEPARTMENT OF PATHOLOGY AND [address] [place] [address] HIV Ag/Ab combination (08/22/2018 6:10 AM PROPERTY ADJUSTER) HIV Ag/Ab combination Non-reactive Non-reactive [facility] Specimen Serum Performing Organization Address [facility] Phone Number [facility] DEPARTMENT OF PATHOLOGY AND [address] [place] [address] Hepatitis acute panel (08/22/2018 6:10 AM PROPERTY ADJUSTER) Hepatitis A IgM Non-reactive Non-reactive [facility] Hepatitis B core IgM Non-reactive Non-reactive [facility] Hepatitis B surface Ag Non-reactive Non-reactive [facility] Hepatitis C Ab Non-reactive Non-reactive [facility] Specimen Serum Performing Organization Address [facility] Phone Number [facility] DEPARTMENT OF PATHOLOGY AND [address] [place] [address] Reticulocyte count (08/22/2018 6:10 AM PROPERTY ADJUSTER) Retic %, auto 1.3 0.5 - 2.1 % [facility] Retic absolute, auto 0.0306 0.0220 - 0.1260 m/uL [facility] Specimen Blood Performing Organization Address [facility] Phone Number [facility] DEPARTMENT OF PATHOLOGY AND [address] [place], [place] [id number] [address] [address] LDH (08/22/2018 6:10 AM PROPERTY ADJUSTER) LDH 132 87 - 225 U/L [facility] Specimen Plasma specimen Performing Organization Address City/[facility] Phone Number [facility] DEPARTMENT OF PATHOLOGY AND [address] [place] [phone] [place] [phone] Haptoglobin (08/22/2018 6:10 AM PROPERTY ADJUSTER) Haptoglobin 339 (H) 30 - 200 mg/dL [facility] Specimen Plasma specimen Performing Organization Address City/[facility] Phone Number [facility] DEPARTMENT OF PATHOLOGY AND [address] [place] [phone] [place] [phone] Ionized calcium (08/22/2018 6:10 AM PROPERTY ADJUSTER)Only the most recent of3 resultswithin the time period is included. pH 7.48 [facility] Ionized calcium 1.19 1.11 - 1.32 mmol/L [facility] Specimen Plasma specimen Performing Organization Address [facility] Phone Number [facility] DEPARTMENT OF PATHOLOGY AND [address] [place] [address] Urinalysis screen and microscopy, with reflex to culture (08/21/2018 4:00 PM PROPERTY ADJUSTER) Specimen site Clean catch [facility] Color, UA Straw [facility] Appearance, UA Clear [facility] Specific gravity, UA 1.009 1.001 - 1.035 [facility] pH, UA 8.0 5.0 - 8.5 [facility] Protein, UA 3+ (A) Negative [facility] Glucose, UA 2+ (A) Negative [facility] Ketones, UA Trace (A) Negative [facility] Bilirubin, UA Negative Negative [facility] Blood, UA Negative Negative [facility] Nitrite, UA Negative Negative [facility] Urobilinogen, UA <2.0 <2.0 [facility] Leukocyte esterase, UA Negative Negative [facility] Epithelial cells, UA <1 /HPF [facility] WBC, UA 1 0 - 1 /HPF [facility] RBC, UA 1 0 - 5 /HPF [facility] Bacteria, UA None seen None seen [facility] Yeast, UA None seen [facility] Yeast with pseudohyphae, UA None seen [facility] Hyaline casts, UA 1 /LPF [facility] Specimen Urine Performing Organization Address City/State/Zipcode Phone Number [facility] DEPARTMENT OF PATHOLOGY AND [address] [place] [phone] [place] [phone] Urine culture (08/21/2018 4:00 PM PROPERTY ADJUSTER) Urine culture SEE COMMENTComment: Bacteriuria [facility] screen negative. Performing Organization Address City/[facility]/Zipcode Phone Number [facility] DEPARTMENT OF PATHOLOGY AND [address] [place] [phone] [place] [phone] Hepatitis B surface Ab, quantitative (08/21/2018 2:21 PM PROPERTY ADJUSTER) Hepatitis B surface Ab <3.10 IU/L [facility] Comment: The anti-HBs is less than 10 IU/L and is therefore negative. There is no evidence of recovery from hepatitis B infection or evidence of antibody response to HBV vaccination. An anti-HBs result greater than or equal to 10 IU/L implies immunity. For post-vaccination antibody testing guidelines for the general public refer to MMWR September 30, 2005/Vol. 54(No. 16);1-23, and for healthcare workers refer to MMWR September 27, 2013/Vol. 62(No. 10);1-19. Reference Interval: anti-HBs 9.99 IU/L or less ....... Negative 10.00 IU/L or greater .... Positive Results greater than 1,000.00 IU/L are reported as greater than 1,000.00 IU/L. This assay should not be used for blood donor screening, associated re-entry protocols, or for screening Human Cell, Tissues and Cellular and Tissue-Based Products (HCT/P). Performed by [facility], [address] [place], [place] [id number] [email or web address], Hans Hazel MD - Lab. Director Specimen Serum Performing Organization Address [facility] [place] Phone Number [facility] [address] [place] [address] [facility] [address] [place] [address] Hepatitis B core antibody total (08/21/2018 2:21 PM PROPERTY ADJUSTER) Hepatitis B core total Ab Non-reactive Non-reactive [facility] Specimen Blood Performing Organization Address City/[facility]/Zipcode Phone Number [facility] DEPARTMENT OF PATHOLOGY AND [address] [place] [address] Hepatitis B surface antigen (08/21/2018 2:21 PM PROPERTY ADJUSTER)Only the most recent of2 resultswithin the time period is included. Hepatitis B surface Ag Non-reactive Non-reactive [facility] Specimen Blood Performing Organization Address City/[facility]/Zipcode Phone Number [facility] DEPARTMENT OF PATHOLOGY AND [address] [place] [address] Hemoglobin & hematocrit (08/21/2018 12:15 PM PROPERTY ADJUSTER) HGB 6.5 (LL) 14.0 - 18.0 g/dL [facility] Comment: HGB results called to and read back by FÁTIMA MCNAIR/ALFRED (name/location) at 12:4608/21/2018 (date/time) by _AK_. HCT 21.1 (L) 41.0 - 51.0 % [facility] Specimen Blood Performing Organization Address City/[facility] Phone Number [facility] DEPARTMENT OF PATHOLOGY AND [address] [place] [address] IR Tunneled Dialysis Catheter Placement (08/20/2018 9:52 AM PROPERTY ADJUSTER) Narrative Performed At Performing Radiologist: XENIA Ag MD Assistants: None. Anesthesia Type: Moderate sedation was administered by the procedure nurse and monitored intraservice [id number] by the procedure physician for 12 minutes. Lidocaine 1% and lidocaine 1% with epinephrine were used for local anesthetic. Pre Procedure Diagnosis: HARVEY on CKD Post Procedure Diagnosis: Status post tunneled right internal jugular vein hemodialysis catheter placement. Procedure: Placement of a tunneled right internal jugular vein hemodialysis catheter. Technique: Written informed consent was obtained prior to the procedure. All elements of maximal sterile barrier technique were followed. The patient's right neck and upper chest were sterilely prepared and draped in the routine manner. Lidocaine 1% was used for local anesthetic. Using real-time ultrasound guidance, a 21-gauge micropuncture needle was advanced successfully into the right internal jugular vein. A 0.018 inch guidewire was advanced centrally through the needle under fluoroscopy. The needle was removed and a micropuncture sheath system was then placed. Under ultrasound guidance, documentation of vessel patency, needle access with permanent recording, and reporting are performed followed by placement of a sheath in the right internal jugular vein. The inner dilator and guidewire were then removed, and a 0.035 inch stiff Amplatz wire was advanced through the micropuncture sheath and successfully into the inferior vena cava. The right infraclavicular fossa was anesthetized with lidocaine 1% mixed with epinephrine. A skin incision was made, and a tunneling device was used to pass the tunneled hemodialysis catheter from the skin entry site to the venotomy site. Attention was then returned to the venotomy site. The tract was then sequentially dilated, and a 19 cm long tip to cuff GlidePath tunneled hemodialysis catheter was then deployed through a peel-away sheath. The catheter tip was placed in the right atrium under fluoroscopic guidance. All ports were tested and demonstrate adequate flow. The catheter was secured to the skin using 2-0 Ethilon suture. The small venotomy incision was closed with 3-0 Monocryl suture and Dermabond. The patient tolerated the procedure well. Fluoroscopy Ka,r=less than 1 mGy Complications: None. Specimens Removed: None. Estimated Blood Loss: Less than 2 mL. Blood/Blood Products Administered: None. Grafts/Implants: As described in the above report. Impression: Successful fluoroscopic-guided placement of a 19 cm long tip to cuff GlidePath tunneled hemodialysis catheter via the right internal jugular vein. The catheter tip lies in the right atrium and is ready for use. [id number]-[id number] Procedure Note [facility], Radiology Results Incoming - 08/20/2018 10:39 AM PROPERTY ADJUSTER Performing Radiologist: Sam Ag MD Assistants: None. Anesthesia Type: Moderate sedation was administered by the procedure nurse and monitored intraservice [id number] by the procedure physician for 12 minutes. Lidocaine 1 % and lidocaine 1% with epinephrine were used for local anesthetic. Pre Procedure Diagnosis: HARVEY on CKD Post Procedure Diagnosis: Status post tunneled right internal jugular vein hemodialysis catheter placement. Procedure: Placement of a tunneled right internal jugular vein hemodialysis catheter. Technique: Written informed consent was obtained prior to the procedure. All elements of maximal sterile barrier technique were followed. The patient's right neck and upper chest were sterilely prepared and draped in the routine manner. Lidocaine 1% was used for local anesthetic. Using real-time ultrasound guidance, a 21-gauge micropuncture needle was advanced successfully into the right internal jugular vein. A 0.018 inch guidewire was advanced centrally through the needle under fluoroscopy. The needle was removed and a micropuncture sheath system was then placed. Under ultrasound guidance, documentation of vessel patency, needle access with permanent recording, and reporting are performed followed by placement of a sheath in the right internal jugular vein. The inner dilator and guidewire were then removed, and a 0.035 inch stiff Amplatz wire was advanced through the micropuncture sheath and successfully into the inferior vena cava. The right infraclavicular fossa was anesthetized with lidocaine 1% mixed with epinephrine. A skin incision was made, and a tunneling device was used to pass the tunneled hemodialysis catheter from the skin entry site to the venotomy site. Attention was then returned to the venotomy site. The tract was then sequentially dilated, and a 19 cm long tip to cuff GlidePath tunneled hemodialysis catheter was then deployed through a peel-away sheath. The catheter tip was placed in the right atrium under fluoroscopic guidance. All ports were tested and demonstrate adequate flow. The catheter was secured to the skin using 2-0 Ethilon suture. The small venotomy incision was closed with 3-0 Monocryl suture and Dermabond. The patient tolerated the procedure well. Fluoroscopy Ka,r=less than 1 mGy Complications: None. Specimens Removed: None. Estimated Blood Loss: Less than 2 mL. Blood/Blood Products Administered: None. Grafts/Implants: As described in the above report. Impression: Successful fluoroscopic-guided placement of a 19 cm long tip to cuff GlidePath tunneled hemodialysis catheter via the right internal jugular vein. The catheter tip lies in the right atrium and is ready for use. [facility]-[id number] Performing Organization Address City/State/Zipcode Phone Number [facility] [address] [place] [address] Potassium level (08/19/2018 6:47 PM PROPERTY ADJUSTER) Potassium 5.6 (H) 3.5 - 5.0 mEq/L [facility] Specimen Plasma specimen Performing Organization Address City/State/Zipcode Phone Number [facility] DEPARTMENT OF PATHOLOGY AND [address] [place] [address] GENOMIC MEDICINE [facility] [address] [place] [address] MRI Lumbar Spine Wo Contrast (08/19/2018 3:48 PM PROPERTY ADJUSTER) Narrative Performed At EXAMINATION: MRI LUMBAR SPINE WO CONTRAST [facility] CLINICAL HISTORY: lower extremity weakness COMPARISON:None TECHNIQUE: Multiplanar multisequence noncontrast enhanced examination was performed of the Lumbar spine. FINDINGS: Chronic anterior wedging of the L1 vertebral body. Vertebral body heights are otherwise maintained without acute fracture. No focal significant marrow signal abnormality is appreciated. Soft tissues supriya ws no mass, adenopathy or aneurysm. The partially visualized spinal cord and the conus are unremarkable. Conus medullaris terminates at T12. Lumbar spine alignment is grossly preserved with normal lordosis without significant subluxation. Axial images through the disc spaces demonstrate the following: L1-L2: No significant posterior disc disease, spinal canal or neural foraminal stenosis. L2-L3: No significant posterior disc disease, spinal canal or neural foraminal stenosis. L3-L4: No significant posterior disc disease, spinal canal or neural foraminal stenosis. L4-L5: No significant posterior disc disease, spinal canal or neural foraminal stenosis. L5-S1: Mild disc space narrowing and disc desiccation, shallow disc bulge less than 2 mm posteriorly. Spinal canal and neural foramina are patent. No significant posterior disc disease, spinal canal or neural foraminal stenosis at other visualized levels. Partially visualized urinary bladder is distended. Bilateral ruby kidneys appear to be atrophic. Partially visualized left iliac fossa renal transplant. IMPRESSION: 1. Mild degenerative disc changes at L5-S1. No significant spinal canal or neural foraminal stenosis at any lumbar spinal level. No compression of neural elements. 2. Chronic anterior wedging of L1 vertebral body. [facility]-[id number] Procedure Note Interface, Radiology Results Incoming - 08/19/2018 5:16 PM PROPERTY ADJUSTER EXAMINATION: MRI LUMBAR SPINE WO CONTRAST CLINICAL HISTORY: lower extremity weakness COMPARISON: None TECHNIQUE: Multiplanar multisequence noncontrast enhanced examination was performed of the Lumbar spine. FINDINGS: Chronic anterior wedging of the L1 vertebral body. Vertebral body heights are otherwise maintained without acute fracture. No focal significant marrow signal abnormality is appreciated. Soft tissues shows no mass, adenopathy or aneurysm. The partially visualized spinal cord and the conus are unremarkable. Conus medullaris terminates at T12. Lumbar spine alignment is grossly preserved with normal lordosis without significant subluxation. Axial images through the disc spaces demonstrate the following: L1-L2: No significant posterior disc disease, spinal canal or neural foraminal stenosis. L2-L3: No significant posterior disc disease, spinal canal or neural foraminal stenosis. L3-L4: No significant posterior disc disease, spinal canal or neural foraminal stenosis. L4-L5: No significant posterior disc disease, spinal canal or neural foraminal stenosis. L5-S1: Mild disc space narrowing and disc desiccation, shallow disc bulge less than 2 mm posteriorly. Spinal canal and neural foramina are patent. No significant posterior disc disease, spinal canal or neural foraminal stenosis at other visualized levels. Partially visualized urinary bladder is distended. Bilateral ruby kidneys appear to be atrophic. Partially visualized left iliac fossa renal transplant. IMPRESSION: 1. Mild degenerative disc changes at L5-S1. No significant spinal canal or neural foraminal stenosis at any lumbar spinal level. No compression of neural elements. 2. Chronic anterior wedging of L1 vertebral body. [facility]-[id number] [facility] Organization Address City/State/Zipcode Phone Number [facility] [address] [place] [address] XR Chest 1 Vw Portable (08/19/2018 11:46 AM PROPERTY ADJUSTER) Narrative Performed At EXAMINATION:XR CHEST 1 VW PORTABLE [facility] CLINICAL HISTORY:evaluate for pneumonia COMPARISON:12/24/2001 IMPRESSION: Heart size is normal. There is no consolidation within the lungs. There is no significant pleural effusion or pneumothorax. Healed right-sided rib fractures and a healed left midclavicular fracture noted. [id number] Procedure Note Interface, Radiology Results Incoming - 08/19/2018 11:53 AM PROPERTY ADJUSTER EXAMINATION: XR CHEST 1 VW PORTABLE CLINICAL HISTORY: evaluate for pneumonia COMPARISON: 12/24/2001 IMPRESSION: Heart size is normal. There is no consolidation within the lungs. There is no significant pleural effusion or pneumothorax. Healed right-sided rib fractures and a healed left midclavicular fracture noted. [id number] Performing Organization Address City/[facility]/Zipcode Phone Number [address] [address] Prothrombin time with INR (08/19/2018 8:49 AM PROPERTY ADJUSTER)Only the most recent of2 resultswithin the time period is included. Prothrombin time 14.5 11.5 - 14.5 sec [facility] INR 1.2 [facility] Comment: HOSPITAL The International Normalized Ratio (INR) is a therapeutic monitoring tool for patients who are stable on oral anticoagulant therapy. An INR of 2.0-3.0 is suggested for deep vein thrombosis/pulmonary embolism. Specimen Blood Performing Organization Address [facility] Phone Number [facility] DEPARTMENT OF PATHOLOGY AND [address] [place] [phone] [place] [phone] Anti Xa, unfractionated (08/19/2018 8:49 AM PROPERTY ADJUSTER) Anti Xa, unfractionated <0.10 (L)Comment: 0.30 - 0.70 U/mL [facility] Therapeutic Range: HOSPITAL 0.30 - 0.70 U/mL Specimen Blood Performing Organization Address [facility] Phone Number [facility] DEPARTMENT OF PATHOLOGY AND [address] [place] [address] Uric acid level (08/19/2018 8:49 AM PROPERTY ADJUSTER) Uric acid 7.7 (H) 3.4 - 7.0 mg/dL [facility] Specimen Plasma specimen Performing Organization Address [facility] Phone Number [facility] DEPARTMENT OF PATHOLOGY AND [address] [place] [phone] [address] Bilirubin direct (08/19/2018 8:49 AM PROPERTY ADJUSTER) Bilirubin direct <0.2 0.0 - 0.3 mg/dL [facility] Specimen Plasma specimen Performing Organization Address City/[facility] Phone Number [facility] DEPARTMENT OF PATHOLOGY AND [address] [place] [phone] [address] Comprehensive metabolic panel (08/19/2018 8:49 AM PROPERTY ADJUSTER)Only the most recent of3 resultswithin the time period is included. Sodium 140 135 - 148 mEq/L [facility] Potassium 5.5 (H) 3.5 - 5.0 mEq/L [facility] Chloride 105 98 - 112 mEq/L [facility] CO2 16 (L) 24 - 31 mEq/L [facility] Anion gap 19@ANIO (H) 7 - 15 mEq/L [facility] BUN 77 (H) 6 - 20 mg/dL [facility] Creatinine 5.04 (H) 0.70 - 1.20 mg/dL [facility] Glucose 130 (H) 65 - 99 mg/dL [facility] Calcium 9.1 8.3 - 10.2 mg/dL [facility] Protein 6.4 6.3 - 8.3 g/dL [facility] Comment: HOSPITAL [place] 4.6-7.0 g/dL 1 week 4.4-7.6 g/dL 7 months-1year5.1-7.3 g/dL 1-2 years5.6-7.5 g/dL >3 years6.0-8.0 g/dL 18-150 6.3-8.3 g/dL Albumin 2.6 (L) 3.5 - 5.0 g/dL [facility] A/G ratio 0.7 0.7 - 3.8 [facility] Alkaline phosphatase 95 40 - 129 U/L [facility] AST 28 10 - 50 U/L [facility] ALT 16 5 - 50 U/L [facility] Total bilirubin <0.2 0.0 - 1.2 mg/dL [facility] Specimen Plasma specimen Performing Organization Address City/[facility] Phone Number [facility] DEPARTMENT OF PATHOLOGY AND [address] [place] [phone] [address] Osmolality, serum (08/19/2018 8:48 AM PROPERTY ADJUSTER) Osmolality 315 (H) 275 - 295 mOsm/kg [facility] Specimen Blood Performing Organization Address City/[facility] Phone Number [facility] DEPARTMENT OF PATHOLOGY AND [address] [place] [phone] [address] Loren-Sharp virus antibody test (08/19/2018 8:34 AM PROPERTY ADJUSTER) EBV Ab to viral capsid Ag, Positive (A) Negative [facility] IgG [facility] EBV Ab to viral capsid Ag, Negative Negative [facility] IgM [facility] EBV Ab to nuclear Ag, IgG Negative Negative [facility] EBV Ab to early (D) Ag, IgG Negative Negative [facility] Loren-Sharp virus antibody SEE COMMENT [facility] interpretation Comment: HOSPITAL Infection Status: Results suggest infection with EBV at some time. However, the time of the infection cannot be predicted (ie, recent or past). Specimen Serum Performing Organization Address City/[facility] Veg[facility] Phone Number [facility] DEPARTMENT OF PATHOLOGY AND [address] [place] [phone] Sodium level, urine, random (08/19/2018 8:31 AM PROPERTY ADJUSTER) Sodium, urine, random 86 mEq/L [facility] Specimen Urine Performing Organization Address [facility] Phone Number [facility] DEPARTMENT OF PATHOLOGY AND [address] [place] [address] Creatinine level, urine, random (08/19/2018 8:31 AM PROPERTY ADJUSTER) Creatinine, urine, random 35 mg/dL [facility] Specimen Urine Performing Organization Address City/[facility] Phone Number [facility] DEPARTMENT OF PATHOLOGY AND [address] [place] [phone] [address] Prepare RBC, 1 Units (08/19/2018 8:20 AM PROPERTY ADJUSTER) Product name Red Blood Cells -1, [facility] Unit number [id number] [facility] Product code [id number] [facility] Dispense status Transfused [facility] Blood expiration date [facility] Blood type code 5100 [facility] Blood type O POSITIVE [facility] Performing Organization Address City/[facility] Phone Number [facility] DEPARTMENT OF PATHOLOGY AND [address] [place] [phone] [address] Type and screen (08/19/2018 8:20 AM PROPERTY ADJUSTER) ABO grouping O [facility] Rh type POS [facility] Antibody screen (gel) NEG [facility] Performing Organization Address City/State/Zipcode Phone Number [facility] DEPARTMENT OF PATHOLOGY AND [address] [place] [phone] [address] ECG 12 lead (08/19/2018 8:14 AM PROPERTY ADJUSTER) Ventricular rate 90 [facility] Atrial rate 90 [facility] [place] interval 174 [facility] QRSD interval 70 [facility] QT interval 370 [facility] QTC interval 452 [facility] MUSE P axis 1 76 [facility] MUSE QRS axis 1 76 [facility] T wave axis 80 [facility] EKG impression Normal sinus rhythm-Normal ECG-In automated [facility] MUSE comparison with ECG of 03-APR-2018 13:32,-Vent. rate has increased BY 30 BPM- Narrative Performed At Performing Organization Address City/State/Zipcode Phone Number [facility] MUSE [address] [place] [address] Lactic acid level (08/19/2018 7:15 AM PROPERTY ADJUSTER) Lactic acid 0.9 0.5 - 2.2 mmol/L [facility] Specimen Blood Performing Organization Address City/[facility]/Zipcode Phone Number [facility] DEPARTMENT OF PATHOLOGY AND [address] [place] [phone] [address] BK virus by PCR (08/19/2018 3:00 AM PROPERTY ADJUSTER) BK virus PCR Not-Detected Not-Detected copies/mL [facility] BK virus PCR See link below for PDF [facility] Lab ReportComment: Performing Organization Address City/State/Zipcode Phone Number [facility] DEPARTMENT OF PATHOLOGY AND [address] [place] [phone] [place] [address] Blood culture, aerobic & anaerobic (08/19/2018 3:00 AM PROPERTY ADJUSTER) Blood culture isolate No growth after 5 days of incubation. [facility] Comment: HOSPITAL Specimen Information Specimen Source: Blood Specimen Site: Unspecified Specimen Blood Performing Organization Address City/[facility]/Zipcode Phone Number [facility] DEPARTMENT OF PATHOLOGY AND [address] [place] [phone] [place] [address] Sedimentation rate (08/19/2018 3:00 AM PROPERTY ADJUSTER) Sedimentation rate >145 (H) 0 - 10 mm/hr [facility] Specimen Blood Narrative Performed At CO2 results called to and read back by [facility] DEPARTMENT OF PATHOLOGY AND GENOMIC BUD HOPE/ALFRED (name/location) MEDICINE 08/19/201807:21 (date/time) by [facility]. Performing Organization Address [facility] Phone Number [facility] DEPARTMENT OF PATHOLOGY AND [address] [place] [address] Hemoglobin A1c (08/19/2018 3:00 AM PROPERTY ADJUSTER) Hemoglobin A1C 6.8 (H) 4.0 - 5.6 % [facility] Comment: HbA1c cutoffs for diagnosing diabetes: 4.0% - 5.6%=normal 5.7% - 6.4%=increased risk for diabetes (prediabetes) >=6.5%=diabetes Goals for glycemic control (ADA 2016) < 7.0%Target for non adults with diabetes. More or less stringent targets may be appropriate for individual patients. <7.5% Target for Children and adolescents with type 1 diabetes. Specimen Blood Performing Organization Address [facility]/Zipcode Phone Number [facility] DEPARTMENT OF PATHOLOGY AND [address] [place] [phone] [place] [phone] Total iron binding capacity (08/19/2018 1:00 AM PROPERTY ADJUSTER) Iron level 20 (L) 59 - 158 ug/dL [facility] Iron binding capacity 201 200 - 400 ug/dL [facility] % Saturation 10.0 (L) 20.0 - 40.0 % [facility] Specimen Plasma specimen Performing Organization Address City/[facility]/Zipcode Phone Number [facility] DEPARTMENT OF PATHOLOGY AND [address] [place], [place] [address] [place] [address] C-reactive protein (08/19/2018 1:00 AM PROPERTY ADJUSTER) CRP 5.51 (H) 0.00 - 0.50 mg/dL [facility] Specimen Plasma specimen Performing Organization Address City/State/Zipcode Phone Number [facility] DEPARTMENT OF PATHOLOGY AND [address] [place] [id number] [place] [id number] Folate level (08/19/2018 1:00 AM PROPERTY ADJUSTER) Folate >20.0 4.8 - 24.2 ng/mL [facility] Specimen Serum Narrative Performed At CO2 results called to and read back by [facility] DEPARTMENT OF PATHOLOGY AND [facility] (name/location) [facility] 08/19/201807:21 (date/time) by SMR. Performing Organization Address City/[facility]/Zipcode Phone Number [facility] DEPARTMENT OF PATHOLOGY AND [address] [place] [id number] [place] [phone] Ferritin level (08/19/2018 1:00 AM PROPERTY ADJUSTER) Ferritin level 314 30 - 400 ng/mL [facility] Specimen Plasma specimen Performing Organization Address City/[facility]/Zipcode Phone Number [facility] DEPARTMENT OF PATHOLOGY AND [address] [place] [id number] [address] Vitamin B12 level (08/19/2018 1:00 AM PROPERTY ADJUSTER) Vitamin B12 1,551 (H) 211 - 946 pg/mL [facility] Comment: Significant overlap exists between normal and deficiency states. However, most patients with deficiencies will have Serum B12 <200 pg/mL. Specimen Serum Narrative Performed At CO2 results called to and read back by [facility] DEPARTMENT OF PATHOLOGY AND [facility] (name/location) MEDICINE 08/19/201807:21 (date/time) by SMR. Performing Organization Address City/State/Zipcode Phone Number [facility] DEPARTMENT OF PATHOLOGY AND [address] [place] [id number] [place] [phone] Hepatic function panel (08/19/2018 1:00 AM PROPERTY ADJUSTER) Albumin 2.7 (L) 3.5 - 5.0 g/dL [facility] Total bilirubin 0.3 0.0 - 1.2 mg/dL [facility] Bilirubin direct <0.2 0.0 - 0.3 mg/dL [facility] Alkaline phosphatase 96 40 - 129 U/L [facility] Protein 7.0 6.3 - 8.3 g/dL [facility] Comment: [place] 4.6-7.0 g/dL 1 week 4.4-7.6 g/dL 7 months-1year5.1-7.3 g/dL 1-2 years5.6-7.5 g/dL >3 years6.0-8.0 g/dL 18-150 6.3-8.3 g/dL ALT 20 5 - 50 U/L [facility] AST 29 10 - 50 U/L [facility] Specimen Plasma specimen Performing Organization Address City/State/Zipcode Phone Number [facility] DEPARTMENT OF PATHOLOGY AND [address] [place] [address] GENOMIC MEDICINE [address] [address] [place] Renal Transplant Doppler (08/19/2018 12:47 AM PROPERTY ADJUSTER) Narrative Performed At EXAMINATION: US RENAL TR[facility]ER [facility] CL[facility]ICAL HISTORY: hx of renal transplant x 2has HARVEY on CKD COMPARISON:None. TECHNIQUE: Sonographic images of the renal transplant were obtained as well as grayscale, color Doppler, and waveform analysis of the renal transplant vessels. FINDINGS: The left iliac fossa renal transplant demonstrates increased echogenicity, measures 10.6 x 4.5 x 4.7 cm. Cortex measures 1.6 cm. Date of transplantation 2002. Transplant kidney cyst measuring 0.8 cm. There is otherwise no evidence of renal mass, calculi, or hydronephrosis. There are no perinephric fluid collections. The transplant renal artery and vein are patent with normal flow direction and waveform. Iliac artery peak systolic velocity is 71.7 cm/s. Arterial anastomosis peak systolic velocity is 59.3 cm/s. Main renal artery peak systolic velocity is 43.0 cm/s, with resistive index of 0.72. Main renal vein demonstrates normal flow. Within the arcuate/segmental arteries, resistive indices range from 0.66 to 0.70. The urinary bladder is unremarkable. Prior right iliac fossa renal transplant is nonvisualized. IMPRESSION: 1. 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 Doppler indices otherwise within normal limits. 2. Prior right iliac fossa renal transplant nonvisualized. [facility]-[id number] Procedure Note Hm Interface, Radiology Results Incoming - 08/19/2018 1:21 AM PROPERTY ADJUSTER EXAMINATION: US RENAL TRANSPLANT DOPPLER CLINICAL HISTORY: hx of renal transplant x 2 has HARVEY on CKD COMPARISON: None. TECHNIQUE: Sonographic images of the renal transplant were obtained as well as grayscale, color Doppler, and waveform analysis of the renal transplant vessels. FINDINGS: The left iliac fossa renal transplant demonstrates increased echogenicity, measures 10.6 x 4.5 x 4.7 cm. Cortex measures 1.6 cm. Date of transplantation 2002. Transplant kidney cyst measuring 0.8 cm. There is otherwise no evidence of renal mass, calculi, or hydronephrosis. There are no perinephric fluid collections. The transplant renal artery and vein are patent with normal flow direction and waveform. Iliac artery peak systolic velocity is 71.7 cm/s. Arterial anastomosis peak systolic velocity is 59.3 cm/s. Main renal artery peak systolic velocity is 43.0 cm/s, with resistive index of 0.72. Main renal vein demonstrates normal flow. Within the arcuate/segmental arteries, resistive indices range from 0.66 to 0.70. The urinary bladder is unremarkable. Prior right iliac fossa renal transplant is nonvisualized. IMPRESSION: 1. 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 Doppler indices otherwise within normal limits. 2. Prior right iliac fossa renal transplant nonvisualized. [facility]-[id number] Performing Organization Address City/State/Zipcode Phone Number [facility] [address] [place] [address] CT Lower Extremity Wo Contrast Right (08/18/2018 10:59 PM PROPERTY ADJUSTER) Narrative Performed At Examination: CT LOWER EXTREMITY WO CONTRAST RIGHT [facility] Clinical history: Fracturehip Comparison: None Technique: CT right lower extremity without contrast. Coronal and sagittal reconstructions were created and reviewed. 3-D bony reconstructions were created and reviewed. Impression: No acute fractures or dislocations. Nonspecific small joint effusion is seen of the right hip. Shrunken atrophic transplant kidney is seen in the right iliac fossa. Nonobstructive calculus is seen in the collecting system. Another transplant kidney is partially seen in the left iliac fossa. Marked distention of the bladder. Atherosclerotic vascular calcifications are seen. Diverticulosis is seen of the large bowel. Conclusion: No acute fractures or dislocations. Nonspecific small joint effusion is seen of the right hip. [facility]-[id number] Procedure Note Interface, Radiology Results Incoming - 08/18/2018 11:17 PM PROPERTY ADJUSTER Examination: CT LOWER EXTREMITY WO CONTRAST RIGHT Clinical history: Fracture hip Comparison: None Technique: CT right lower extremity without contrast. Coronal and sagittal reconstructions were created and reviewed. 3-D bony reconstructions were created and reviewed. Impression: No acute fractures or dislocations. Nonspecific small joint effusion is seen of the right hip. Shrunken atrophic transplant kidney is seen in the right iliac fossa. Nonobstructive calculus is seen in the collecting system. Another transplant kidney is partially seen in the left iliac fossa. Marked distention of the bladder. Atherosclerotic vascular calcifications are seen. Diverticulosis is seen of the large bowel. Conclusion: No acute fractures or dislocations. Nonspecific small joint effusion is seen of the right hip. [facility]-[id number] Performing Organization Address City/State/Zipcode Phone Number [facility] [address] [place] [address] XR Pelvis 3+ Vw (08/18/2018 8:22 PM PROPERTY ADJUSTER) Narrative Performed At XR PELVIS 3VW [facility] CLINICAL INDICATION:Hip painacutefx suspectedinitial exam COMPARISON:None. IMPRESSION: Views of the pelvis demonstrate marked osteoporosis. This decreases fracture detection;if occult fracture is highly suspected, MR could be performed in follow-up. Within limits, no pelvic fracture is identified and there is no disruption of the pelvic ring with mild pelvic tilt noted. There are severe vascular calcifications throughout the pelvis and lower extremities. Thank you for allowing us to participate in the care of your patient. [facility]-[id number] Procedure Note Interface, Radiology Results Incoming - 08/18/2018 8:37 PM PROPERTY ADJUSTER XR PELVIS 3 VW CLINICAL INDICATION: Hip pain acute fx suspected initial exam COMPARISON: None. IMPRESSION: Views of the pelvis demonstrate marked osteoporosis. This decreases fracture detection; if occult fracture is highly suspected, MR could be performed in follow-up. Within limits, no pelvic fracture is identified and there is no disruption of the pelvic ring with mild pelvic tilt noted. There are severe vascular calcifications throughout the pelvis and lower extremities. Thank you for allowing us to participate in the care of your patient. [facility]-[id number] Performing Organization Address [facility]/Zipcode Phone Number [facility] [address] [place] [address] XR Femur 2 Vw Right (08/18/2018 8:22 PM PROPERTY ADJUSTER) Narrative Performed At XR FEMUR 2 VW RIGHT [facility] CLINICAL INDICATION:Fracturefemur COMPARISON:None. IMPRESSION: Bones are markedly demineralized. No fracture or osseous lesion of the femur is identified. There is no erosion or periostitis. There are severe vascular calcifications throughout the pelvis and right lower extremity. Thank you for allowing us to participate in the care of your patient [facility]-[id number] Procedure Note Interface, Radiology Results Incoming - 08/18/2018 8:34 PM PROPERTY ADJUSTER XR FEMUR 2 VW RIGHT CLINICAL INDICATION: Fracture femur COMPARISON: None. IMPRESSION: Bones are markedly demineralized. No fracture or osseous lesion of the femur is identified. There is no erosion or periostitis. There are severe vascular calcifications throughout the pelvis and right lower extremity. Thank you for allowing us to participate in the care of your patient [facility]-[id number] Performing Organization Address [facility] Phone Number [facility] [address] [place] [address] Partial thromboplastin time, activated (08/18/2018 7:42 PM PROPERTY ADJUSTER) PTT 34.6 23.0 - 36.0 sec [facility] DEPARTMENT OF PATHOLOGY Comment: AND GENOMIC MEDICINE PTT therapeutic range for unfractionated heparin is 61.0-112.0 seconds which corresponds to Anti-Xa 0.3-0.7 U/ml. Specimen Blood Performing Organization Address [facility] Phone Number [facility] DEPARTMENT OF PATHOLOGY AND [address] [place] [address] [facility] Streak ECG Pre/Post Op (04/03/2018 1:32 PM CDT) Ventricular rate 60 [facility] MUSE Atrial rate 60 HM MUSE [place] interval 176 [facility] MUSE QRSD interval 78 HM MUSE QT interval 434 HM MUSE QTC interval 434 [facility] MUSE P axis 1 71 HM MUSE QRS axis 1 70 [facility] MUSE T wave axis 92 [facility] MUSE EKG impression Normal sinus rhythm-Normal ECG-No previous [facility] MUSE ECGs available- Performing Organization Address City/[facility]/Zipcode Phone Number [facility] MUSE [address] [place] [address] Estimated GFR (04/03/2018 1:23 PM CDT) GFR Non Af Amer 19 (A) mL/min/1.73 m2 [facility] DEPARTMENT OF PATHOLOGY AND GENOMIC MEDICINE GFR Af Amer 23 (A) mL/min/1.73 m2 [facility] DEPARTMENT OF Comment: PATHOLOGY AND GENOMIC Chronic kidney disease: <60 mL/min/1.73m2 MEDICINE Kidney failure: <15 mL/min/1.73m2 The estimated GFR is calculated from the IDMS-traceable Modification of Diet in Renal Disease Equation. The accuracy of the calculation is poor when the creatinine is normal. Calculated values >90 mL/min/1.73m2 are not reported. This equation has not been validated in children (<18 years), women, the elderly (>70 years), or ethnic groups other than Caucasians and Americans. Specimen Plasma specimen Performing Organization Address City/[facility] Vegas[facility] Phone Number [facility] PATHOLOGY AND [address] [place] [address] [employer] [facility] CBC hemogram (04/03/2018 1:23 PM CDT) WBC 7.82 4.50 - 11.00 k/uL [facility] DEPARTMENT OF PATHOLOGY AND GENOMIC MEDICINE RBC 2.54 (L) 4.40 - 6.00 m/uL [facility] DEPARTMENT OF PATHOLOGY AND GENOMIC MEDICINE HGB 8.3 (L) 14.0 - 18.0 g/dL [facility] DEPARTMENT OF PATHOLOGY AND GENOMIC MEDICINE HCT 27.0 (L) 41.0 - 51.0 % [facility] DEPARTMENT OF PATHOLOGY AND GENOMIC MEDICINE MCV 106.3 (H) 82.0 - 100.0 fL [facility] DEPARTMENT OF PATHOLOGY AND GENOMIC MEDICINE MCH 32.7 27.0 - 34.0 pg [facility] DEPARTMENT OF PATHOLOGY AND GENOMIC MEDICINE MCHC 30.7 (L) 31.0 - 37.0 g/dL [facility] DEPARTMENT OF PATHOLOGY AND GENOMIC MEDICINE RDW - SD 57.0 (H) 37.0 - 55.0 fL [facility] DEPARTMENT OF PATHOLOGY AND GENOMIC MEDICINE MPV 9.7 8.8 - 13.2 fL [facility] DEPARTMENT OF PATHOLOGY AND GENOMIC MEDICINE Platelet count 290 150 - 400 k/uL [facility] DEPARTMENT OF PATHOLOGY AND GENOMIC MEDICINE Nucleated RBC 0.00 /100 WBC [facility] DEPARTMENT OF PATHOLOGY AND GENOMIC MEDICINE Specimen Blood Performing Organization Address City/State/Zipcode Phone Number [facility] DEPARTMENT OF PATHOLOGY AND [address] [place] [address] GENOMIC MEDICINE after 12/19/2017 Insurance Payer Benefit Plan / Group Subscriber ID Type Phone Address MEDICARE MEDICARE PART A AND B xxxxxxxxxxx Medicare [place], [place] [employer] MED[employer] [place] xxxxxxxxx HMO Advance Directives Patient has advance care planning documents on file. For more information, please contact:Mervin [id number] [place] [address]
--- OUTSIDE RECORDS SUMMARY | 2018-12-20 11:18 | XMS REPORT | Clinical Summary ---
:1965 Author Organization [facility] Address [address] [place] [address] Care Team Providers Name Role Phone Cheko Primary Care Provider Allergies No Known Allergies Medications Medication Sig Dispensed Refills Start Date End Date Status metoprolol Take 1 tablet 60 tablet 0 10/03/2014 Active (LOPRESSOR) 100 MG (100 mg total) tabletIndications: by mouth 2 S/p cadaver renal (two) times transplant daily. tacrolimus Take 2 mg by 0 Active (PROGRAF) 1 MG mouth 2 (two) capsule times daily . predniSONE Take 5 mg by 0 Active (DELTASONE) 5 MG mouth daily. tablet lisinopril Take 1,900 mg 0 Active (PRINIVIL,ZESTRIL) by mouth 20 MG tablet daily. dilTIAZem Take 90 mg by 0 10/03/2014 Active (CARDIZEM) 120 MG mouth. tablet diltiaZEM Take 90 mg by 0 10/03/2014 04/10/2018 Discontinued (CARDIZEM) 120 MG mouth 2 (two) tablet times daily. 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 Per chart review, graft function is good. No history of rejection. No evidence of recurrent PSC so far. IS managed by Dr. Mendoza. Cancer screening 12/21/2016 Last Assessment & Plan: No suspicious lesions biopsies at last dermatology visit. Continue routine surveillance for skin lesions given history of non-melanoma skin cancer. Hx of kidney transplant 12/21/2016 Last Assessment & Plan: Worsening creatinine function. Most recently 2.48 in 06/2017, from 1.4 in 2013. Not currently requiring dialysis. States he was told to schedule an appt with his vascular surgeon for AV fistula creat ion in preparation of starting HD. He has not yet contact his surgeon for an appt. Essential hypertension 12/21/2016 Last Assessment & Plan: Recently hypertensive with pressures to 170s/90s on diltiazem metoprolol and lisinopril. F/u with PCP regarding management of chronic hypertension. Mixed hyperlipidemia 12/21/2016 Last Assessment & Plan: He has hypertriglyceridemia and mild hypercholesterolemia. This might be a side effect from Rapamune. These will need to be monitored closely. We will check lipid panel and HbA1c before next visit to screen for other metabolic problems. You should have regular follow-up with PCP. Number for [facility] primary care office was given. Encounters Date Type Specialty Care Team Description 09/17/2018 Abstract Transplant Leona Jeff, RN 08/21/2018 Telephone Transplant Leona Jeff Follow-up Y, RN 07/30/2018 Telephone Transplant Leona Jeff Follow-up Y, RN 06/04/2018 Telephone Transplant Leona Jeff, RN 06/01/2018 Telephone Transplant Leona Jeff, RN 06/01/2018 Orders Only Transplant Leona Jeff, RN 05/22/2018 Refill Transplant Susan Clarke MD 04/25/2018 Documentation Transplant [place], S/P liver transplant ( Primary Dx); Ivania Garcia RN Hx of kidney transplant; Cancer screening; Essential hypertension 04/17/2018 Social Work Transplant StoneAdama, MEDICAL ANTHROPOLOGY DIRECTOR 04/13/2018 Outside Orders Central Scheduling Mario Shields Essential hypertension, malignant (Primary Dx); MD Juan Manuel 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 Evaluation Transplant Peng, Essential hypertension; Yasir Higuera II, Cancer screening; Hx of kidney transplant; Nay William S/P liver transplant MD Janiya 04/10/2018 Hospital Encounter Radiology Peng S/P liver transplant; Yasir Higuera II, Hx of kidney transplant; Pre-transplant evaluation for chronic kidney disease 04/10/2018 Hospital Encounter Radiology Yasir Khoury II, MD 04/10/2018 Social Work Transplant Adama Stone, MEDICAL ANTHROPOLOGY DIRECTOR 04/10/2018 Orders Only Transplant Peng, S/P liver transplant; Yasir Higuera II, Essential hypertension; Pre-transplant evaluation for chronic kidney disease; CKD (chronic kidney disease) stage 4, GFR 15-29 ml/min (HCC) 04/10/2018 Orders Only Transplant [place], S/P liver transplant (Primary Dx); Ivania Garcia RN Essential hypertension; Pre-transplant evaluation for chronic kidney disease; CKD (chronic kidney disease) stage 4, GFR 15-29 ml/min (HCC) 03/08/2018 Orders Only Transplant Ivania Coto RN 03/07/2018 Orders Only Transplant Kelly Lazcano RN 03/07/2018 Telephone Transplant Kelly Lazcano RN Waitlist Maintenance 03/02/2018 Documentation Transplant Ivania Coto RN 02/22/2018 Documentation Transplant Ivania Coto RN after 12/19/2017 Family History Medical History Relation Name Comments Melanoma Maternal Grandmother Relation Name Status Comments Maternal Grandmother Social History Tobacco Use Types Packs/Day Years Used Date Former Smoker Alcohol Use Drinks/Week oz/Week Comments No Sex Assigned at Date Recorded Not on file Job Start Date Occupation Industry Not on file Not on file Not on file Travel History Travel Start Travel End No recent travel history available. Last Filed Vital Signs Vital Sign Reading Time Taken Blood Pressure 170/94 04/10/2018 10:33 AM CDT Pulse 77 04/10/2018 10:33 AM CDT Temperature 36.4 C (97.5 F) 04/10/2018 10:33 AM CDT Respiratory Rate 16 04/10/2018 10:33 AM CDT Oxygen Saturation 98% 04/10/2018 10:33 AM CDT Inhaled Oxygen Concentration - - Weight 46.2 kg (101 lb 14.4 oz) 04/10/2018 10:33 AM CDT Height 175.3 cm (5' 9") 04/10/2018 10:33 AM CDT Body Mass Index 15.05 04/10/2018 10:33 AM CDT Plan of Treatment Health Maintenance Due Date Last Done Comments INFLUENZA VACCINE 07/09/2018 Procedures Procedure Name Priority Date/Time Associated Diagnosis Comments MR MRA ABDOMEN Routine 04/10/2018 9:35 AM Results for this WITHOUT CONTRAST CDT procedure are in the results section. MR MRA PELVIS Routine 04/10/2018 9:35 AM S/P liver transplant Results for this WITHOUT CONTRAST CDT Hx of kidney procedure are in transplant the results Pre-transplant section. evaluation for chronic kidney disease after 12/19/2017 Results MRA abdomen without IV contrast (04/10/2018 9:35 AM CDT) Narrative Performed At FINAL REPORT [facility] MRV of the pelvic veins and the IVC, 10 April 2018 INDICATION: This is a 52 years old male, with end-stage renal disease, presents for pretransplant assessment. This study is performed in attempt to avoid an invasive procedure. TECHNIQUE: Belinda 3 Nery INGENIA MRI scanner. High-resolution gradient echo images using the steady-state free precession is performed through the axial orientation. In addition, other various MR a tiny including [id number] images, as well as 3-D turbo spin-echo ECG gated, echo navigator technique was attempted. Multiplanar reformation was performed using independent workstation. FINDINGS: This study is not optimised in the assessment of extravascular structures. In the available images, the liver and spleen appears grossly unremarkable. The gallbladder is not identified. Kidneys are atrophic, likely due to underlying end-stage renal disease. Some renal cysts are identified bilaterally incompletely characterized. No hydronephrosis or perirenal fluid collections identified. The bowel, soft tissue, and musculoskeletal structures are not well assessed. The prostate gland appears grossly unremarkable though assessment is limited. The bladder is identified. In addition, in the left pelvic area, transplant kidney is identified. No hydronephrosis or perirenal fluid collection is seen. Various cysts are identified in the transplant kidney, with limited tissue characterization. The abdominal aorta is normal in course and calibre. Some atherosclerosis is seen. No aneurysmal dilation or ectasia is identified. Quantitative dimensions of the aorta are as follows: 2.1 cm at the mesenteric level; 1.8 cm at the renal level; and 1.7 cm at the aortic bifurcation. The common iliac, and external iliac arteries are widely patent. Some nonobstructive atherosclerosis is seen. Professional Programmer Analyst dimension of the left and the right external iliac artery is approximately 10 mm in the left, and 9 mm in the right. Note, the left common femoral artery is unremarkable. Assessment of the left SFA somewhat limited. Most importantly, the right common femoral artery is occluded though the right SFA seen to be patent indicating reconstitution by surrounding collaterals. The associated pelvic veins including the common iliac, external iliac and the visualized common femoral veins, bilaterally, are patent with no venous thrombosis identified. Professional Programmer Analyst dimension of the left and the right external iliac vein is approximately 9 mm in the left and 10 to 11 mm on the right. Patient is post kidney transplantation. The transplant artery is identified, connecting to the proximal left external iliac artery, and the anastomotic site is located approximately 2.9 cm from the takeoff of the left external iliac artery; the transplant vein is identified, connecting to the left external iliac vein, and the anastomotic site is located more inferiorly to the transplant artery. CONCLUSIONS: 1.The common iliac and external iliac arteries, bilaterally, widely patent. The associated pelvic veins are also patent with no venous thrombosis identified. Professional Programmer Analyst dimensions of the left and right external iliac artery and veins as described above. 2.Note, the right common femoral artery is occluded. Acuity of this finding cannot be commented upon. Nevertheless, the visualized proximal right SFA is patent indicating reconstitution by surrounding collaterals. 3.The abdominal aorta is remarkable for the presence of atherosclerosis with no acute aortic pathology identified. No aneurysmal dilation is seen. Quantitative dimensions of the abdominal aorta are as described above. 4.Patient has end stage renal disease. A transplant kidney is identified in the left iliac fossa with no hydronephrosis or perirenal fluid collections identified. However, various small renal cysts identified with limited tissue characterization. 5.Other findings as described above; this study is not optimized in the assessment of extravascular structures. Signed: Gaurang Doe MD Report Verified Date/Time:04/10/2018 12:04:22 Reading Location: [place] [id number] Cardiology MRI Procedure Note Interface, External Ris In - 04/10/2018 12:06 PM CDT FINAL REPORT MRV of the pelvic veins and the IVC, 10 April 2018 INDICATION: This is a 52 years old male, with end-stage renal disease, presents for pretransplant assessment. This study is performed in attempt to avoid an invasive procedure. TECHNIQUE: Belinda 3 Nery [place] MRI scanner. High-resolution gradient echo images using the steady-state free precession is performed through the axial orientation. In addition, other various MR a tiny including [id number] images, as well as 3-D turbo spin-echo ECG gated, echo navigator technique was attempted. Multiplanar reformation was performed using independent workstation. FINDINGS: This study is not optimised in the assessment of extravascular structures. In the available images, the liver and spleen appears grossly unremarkable. The gallbladder is not identified. Kidneys are atrophic, likely due to underlying end-stage renal disease. Some renal cysts are identified bilaterally incompletely characterized. No hydronephrosis or perirenal fluid collections identified. The bowel, soft tissue, and musculoskeletal structures are not well assessed. The prostate gland appears grossly unremarkable though assessment is limited. The bladder is identified. In addition, in the left pelvic area, transplant kidney is identified. No hydronephrosis or perirenal fluid collection is seen. Various cysts are identified in the transplant kidney, with limited tissue characterization. The abdominal aorta is normal in course and calibre. Some atherosclerosis is seen. No aneurysmal dilation or ectasia is identified. Quantitative dimensions of the aorta are as follows: 2.1 cm at the mesenteric level; 1.8 cm at the renal level; and 1.7 cm at the aortic bifurcation. The common iliac, and external iliac arteries are widely patent. Some nonobstructive atherosclerosis is seen. Professional Programmer Analyst dimension of the left and the right external iliac artery is approximately 10 mm in the left, and 9 mm in the right. Note, the left common femoral artery is unremarkable. Assessment of the left SFA somewhat limited. Most importantly, the right common femoral artery is occluded though the right SFA seen to be patent indicating reconstitution by surrounding collaterals. The associated pelvic veins including the common iliac, external iliac and the visualized common femoral veins, bilaterally, are patent with no venous thrombosis identified. Professional Programmer Analyst dimension of the left and the right external iliac vein is approximately 9 mm in the left and 10 to 11 mm on the right. Patient is post kidney transplantation. The transplant artery is identified, connecting to the proximal left external iliac artery, and the anastomotic site is located approximately 2.9 cm from the takeoff of the left external iliac artery; the transplant vein is identified, connecting to the left external iliac vein, and the anastomotic site is located more inferiorly to the transplant artery. CONCLUSIONS: 1. The common iliac and external iliac arteries, bilaterally, widely patent. The associated pelvic veins are also patent with no venous thrombosis identified. Professional Programmer Analyst dimensions of the left and right external iliac artery and veins as described above. 2. Note, the right common femoral artery is occluded. Acuity of this finding cannot be commented upon. Nevertheless, the visualized proximal right SFA is patent indicating reconstitution by surrounding collaterals. 3. The abdominal aorta is remarkable for the presence of atherosclerosis with no acute aortic pathology identified. No aneurysmal dilation is seen. Quantitative dimensions of the abdominal aorta are as described above. 4. Patient has end stage renal disease. A transplant kidney is identified in the left iliac fossa with no hydronephrosis or perirenal fluid collections identified. However, various small renal cysts identified with limited tissue characterization. 5. Other findings as described above; this study is not optimized in the assessment of extravascular structures. Signed: Gaurang Doe MD Report Verified Date/Time: 04/10/2018 12:04:22 Reading Location: [place] [id number] Cardiology MRI Performing Organization Address City/State/Zipcode Phone Number [facility] MRA pelvis without IV contrast (04/10/2018 9:35 AM CDT) Narrative Performed At FINAL REPORT [facility] MRV of the pelvic veins and the IVC, 10 April 2018 INDICATION: This is a 52 years old male, with end-stage renal disease, presents for pretransplant assessment. This study is performed in attempt to avoid an invasive procedure. TECHNIQUE: Belinda 3 Nery INGENIA MRI scanner. High-resolution gradient echo images using the steady-state free precession is performed through the axial orientation. In addition, other various MR a tiny including [id number] images, as well as 3-D turbo spin-echo ECG gated, echo navigator technique was attempted. Multiplanar reformation was performed using independent workstation. FINDINGS: This study is not optimised in the assessment of extravascular structures. In the available images, the liver and spleen appears grossly unremarkable. The gallbladder is not identified. Kidneys are atrophic, likely due to underlying end-stage renal disease. Some renal cysts are identified bilaterally incompletely characterized. No hydronephrosis or perirenal fluid collections identified. The bowel, soft tissue, and musculoskeletal structures are not well assessed. The prostate gland appears grossly unremarkable though assessment is limited. The bladder is identified. In addition, in the left pelvic area, transplant kidney is identified. No hydronephrosis or perirenal fluid collection is seen. Various cysts are identified in the transplant kidney, with limited tissue characterization. The abdominal aorta is normal in course and calibre. Some atherosclerosis is seen. No aneurysmal dilation or ectasia is identified. Quantitative dimensions of the aorta are as follows: 2.1 cm at the mesenteric level; 1.8 cm at the renal level; and 1.7 cm at the aortic bifurcation. The common iliac, and external iliac arteries are widely patent. Some nonobstructive atherosclerosis is seen. Professional Programmer Analyst dimension of the left and the right external iliac artery is approximately 10 mm in the left, and 9 mm in the right. Note, the left common femoral artery is unremarkable. Assessment of the left SFA somewhat limited. Most importantly, the right common femoral artery is occluded though the right SFA seen to be patent indicating reconstitution by surrounding collaterals. The associated pelvic veins including the common iliac, external iliac and the visualized common femoral veins, bilaterally, are patent with no venous thrombosis identified. Professional Programmer Analyst dimension of the left and the right external iliac vein is approximately 9 mm in the left and 10 to 11 mm on the right. Patient is post kidney transplantation. The transplant artery is identified, connecting to the proximal left external iliac artery, and the anastomotic site is located approximately 2.9 cm from the takeoff of the left external iliac artery; the transplant vein is identified, connecting to the left external iliac vein, and the anastomotic site is located more inferiorly to the transplant artery. CONCLUSIONS: 1.The common iliac and external iliac arteries, bilaterally, widely patent. The associated pelvic veins are also patent with no venous thrombosis identified. Professional Programmer Analyst dimensions of the left and right external iliac artery and veins as described above. 2.Note, the right common femoral artery is occluded. Acuity of this finding cannot be commented upon. Nevertheless, the visualized proximal right SFA is patent indicating reconstitution by surrounding collaterals. 3.The abdominal aorta is remarkable for the presence of atherosclerosis with no acute aortic pathology identified. No aneurysmal dilation is seen. Quantitative dimensions of the abdominal aorta are as described above. 4.Patient has end stage renal disease. A transplant kidney is identified in the left iliac fossa with no hydronephrosis or perirenal fluid collections identified. However, various small renal cysts identified with limited tissue characterization. 5.Other findings as described above; this study is not optimized in the assessment of extravascular structures. Signed: Gaurang Doe MD Report Verified Date/Time:04/10/2018 12:04:22 Reading Location: [place] [id number] Cardiology MRI Procedure Note Interface, External Ris In - 04/10/2018 2:45 PM CDT FINAL REPORT MRV of the pelvic veins and the IVC, 10 April 2018 INDICATION: This is a 52 years old male, with end-stage renal disease, presents for pretransplant assessment. This study is performed in attempt to avoid an invasive procedure. TECHNIQUE: Belinda 3 Neyr INGENIA MRI scanner. High-resolution gradient echo images using the steady-state free precession is performed through the axial orientation. In addition, other various MR a tiny including [id number] images, as well as 3-D turbo spin-echo ECG gated, echo navigator technique was attempted. Multiplanar reformation was performed using independent workstation. FINDINGS: This study is not optimised in the assessment of extravascular structures. In the available images, the liver and spleen appears grossly unremarkable. The gallbladder is not identified. Kidneys are atrophic, likely due to underlying end-stage renal disease. Some renal cysts are identified bilaterally incompletely characterized. No hydronephrosis or perirenal fluid collections identified. The bowel, soft tissue, and musculoskeletal structures are not well assessed. The prostate gland appears grossly unremarkable though assessment is limited. The bladder is identified. In addition, in the left pelvic area, transplant kidney is identified. No hydronephrosis or perirenal fluid collection is seen. Various cysts are identified in the transplant kidney, with limited tissue characterization. The abdominal aorta is normal in course and calibre. Some atherosclerosis is seen. No aneurysmal dilation or ectasia is identified. Quantitative dimensions of the aorta are as follows: 2.1 cm at the mesenteric level; 1.8 cm at the renal level; and 1.7 cm at the aortic bifurcation. The common iliac, and external iliac arteries are widely patent. Some nonobstructive atherosclerosis is seen. Professional Programmer Analyst dimension of the left and the right external iliac artery is approximately 10 mm in the left, and 9 mm in the right. Note, the left common femoral artery is unremarkable. Assessment of the left SFA somewhat limited. Most importantly, the right common femoral artery is occluded though the right SFA seen to be patent indicating reconstitution by surrounding collaterals. The associated pelvic veins including the common iliac, external iliac and the visualized common femoral veins, bilaterally, are patent with no venous thrombosis identified. Professional Programmer Analyst dimension of the left and the right external iliac vein is approximately 9 mm in the left and 10 to 11 mm on the right. Patient is post kidney transplantation. The transplant artery is identified, connecting to the proximal left external iliac artery, and the anastomotic site is located approximately 2.9 cm from the takeoff of the left external iliac artery; the transplant vein is identified, connecting to the left external iliac vein, and the anastomotic site is located more inferiorly to the transplant artery. CONCLUSIONS: 1. The common iliac and external iliac arteries, bilaterally, widely patent. The associated pelvic veins are also patent with no venous thrombosis identified. Professional Programmer Analyst dimensions of the left and right external iliac artery and veins as described above. 2. Note, the right common femoral artery is occluded. Acuity of this finding cannot be commented upon. Nevertheless, the visualized proximal right SFA is patent indicating reconstitution by surrounding collaterals. 3. The abdominal aorta is remarkable for the presence of atherosclerosis with no acute aortic pathology identified. No aneurysmal dilation is seen. Quantitative dimensions of the abdominal aorta are as described above. 4. Patient has end stage renal disease. A transplant kidney is identified in the left iliac fossa with no hydronephrosis or perirenal fluid collections identified. However, various small renal cysts identified with limited tissue characterization. 5. Other findings as described above; this study is not optimized in the assessment of extravascular structures. Signed: Gaurang Doe MD Report Verified Date/Time: 04/10/2018 12:04:22 Reading Location: [id number] Cardiology MRI Performing Organization Address City/State/Zipcode Phone Number [facility] RIS after 12/19/2017 Insurance Payer Benefit Plan / Group Subscriber ID Type Phone Address MEDICARE MEDICARE A B xxxxxxxxxx Medicare MEDICAID MEDICAID [place] xxxxxxxxx Medicaid Advance Directives For more information, please contact:[place] [address] [address] [place], [place] [phone] Code Status Date Activated Date Inactivated Comments Full Code 01/20/2017 2:15 PM 01/20/2017 8:34 PM This code status was determined by: Patient
--- OUTSIDE RECORDS SUMMARY | 2018-12-20 11:19 | XMS REPORT ---
:1965 [facility] Address [address] [place] [address] [place] [address] Care Team Providers Name Role Phone THERESA HUYNH Unavailable Unavailable ELLA HEAD Unavailable Unavailable Problems This patient has no known problems. Allergies, Adverse Reactions, Alerts This patient has no known allergies or adverse reactions. Medications This patient has no known medications. Results Test Description Test Time Test Comments Text Results Atomic Results Result Comments MR, MRA PELVIS, 2018-04-10 12:04:00 Referring: FINAL REPORT PATIENT ID : WITHOUT IV March Reji [id number] MRV of the pelvic CONTRAST veins and the IVC, 10 April 2018 [...] addition, other various MR a tiny including ggcd-mw-eslhvo images, as well as 3-D turbo spin-echo [...] widely patent. Some nonobstructive atherosclerosis is seen. Pulp Beater dimension of the left and the right [...] are patent with no venous thrombosis identified. Pulp Beater dimension of the left and the right [...] also patent with no venous thrombosis identified. Pulp Beater dimensions of the left and right external [...] assessment of extravascular structures. Signed: Gaurang Doe MDReport Verified Date/Time: 04/10/2018 12:04:22 Reading Location: [place] [address] Cardiology MRI , MRA ABDOMEN, 2018-04-10 12:04:00 Referring: FINAL REPORT PATIENT ID : WITHOUT CONTRAST March Reji [id number] MRV of the pelvic veins and the [...] addition, other various MR a tiny including wmtw-ba-sdmdep images, as well as 3-D turbo spin-echo [...] widely patent. Some nonobstructive atherosclerosis is seen. Pulp Beater dimension of the left and the right [...] are patent with no venous thrombosis identified. Pulp Beater dimension of the left and the right [...] also patent with no venous thrombosis identified. Pulp Beater dimensions of the left and right external [...] assessment of extravascular structures. Signed: Gaurang Doe MDReport Verified Date/Time: 04/10/2018 12:04:22 Reading Location: [place] [address] Cardiology MRI TYPING 2017-08-29 11:31:00 Test Item Value Reference Range Comments HLA RESULT (BEAKER) (test xyxx=8287) See Scanned Report HLA-A AG1 (BEAKER) (test fhuy=8641) HLA-A AG2 (BEAKER) (test qoeh=4333) HLA-B AG1 (BEAKER) (test blxu=6623) HLA-B AG2 (BEAKER) (test vwci=1093) HLA-C AG1 (BEAKER) (test qfmb=3765) HLA-C AG2 (BEAKER) (test tjsj=6244) HLA-DR AG1 (BEAKER) (test tvnf=7972) HLA-DR AG2 (BEAKER) (test giql=6634) HLA-DQ AG1 (BEAKER) (test zoxt=6844) HLA-DQ AG2 (BEAKER) (test troj=5248) HLA-DRW (BEAKER) (test wlyg=0761) FLOW PRA CLASS I AND [id number] 11:44:00 Test Item Value Reference Range Comments DATE OF SERUM (BEAKER) (test utqm=7951) [id number] SERUM # (BEAKER) (test efdt=1137) [id number] FLOW PRA CLASS I AND II (test kcuw=1477) See Scanned Report CREATININE [id number] 16:31:00 Test Item Value Reference Range Comments CREATININE CLEARANCE (BEAKER) 19.0 mL/min 70.0-140.0 (test fwtk=980) VOLUME, TOTAL (BEAKER) (test 1800 ml pnze=0697) CREATININE URINE (BEAKER) (test 32.2 mg/dL lteq=192) [id number] ([facility]) Rakesh Kee M.D. (test cyok=5889) ([facility] 24 hour urine collection for creatinine clearance and protein.[id number] 14:33:00 Test Item Value Reference Range Comments CREATININE (BEAKER) (test 2.48 mg/dL 0.57-1.25 qjcc=154) EGFR (BEAKER) (test 28 mL/min/1.73 sq m ESTIMATED GFR IS NOT laqh=4885) ACCURATE CREATININE CLEARANCE IN PREDICTING GLOMERULAR FILTRATION RATE. ESTIMATED GFR IS NOT APPLICABLE FOR DIALYSIS PATIENTS. 24 hour urine collection for creatinine clearance and protein.VARICELLA ZOSTER ANTIBODY, [id number] 07:07:00 Test Item Value Reference Range Comments VARICELLA ZOSTER IGG (AL) (BEAKER) (test cfob=1664) 2.5 Al VARICELLA ZOSTER RESULT INTERPRETATIONS: <=0.8 Al Nonreactive: Presumed non-immune to VZV 0.9-1.0 Al Equivocal >=1.1 Al Reactive: Presumed immune to VZVCYTOMEGALOVIRUS ANTIBODY, [id number] 07:01:00 Test Item Value Reference Range Comments CYTOMEGALOVIRUS IGG ANTIBODY (BEAKER) (test Positive zwtm=620) CYTOMEGALOVIRUS ANTIBODY, [id number] 07:01:00 Test Item Value Reference Range Comments CYTOMEGALOVIRUS IGM ANTIBODY (BEAKER) (test Negative irww=520) EBV-VCA ANTIBODY, [id number] 07:01:00 Test Item Value Reference Range Comments HOANG-SHARP VCA IGG (BEAKER) (test tqim=550) Positive EBV-VCA ANTIBODY, [id number] 07:01:00 Test Item Value Reference Range Comments HOANG-SHARP VCA IGM (BEAKER) (test vbci=567) Negative MHA - [id number] 04:29:00 Test Item Value Reference Range Comments MHA-TP (BEAKER) (test rdnl=8816) Nonreactive RPR [id number] 04:29:00 Test Item Value Reference Range Comments RPR TITER (BEAKER) (test fqbt=4659) :8 [id number] 04:29:00 Test Item Value Reference Range Comments RPR SCREEN (BEAKER) (test mhsn=874) Reactive Nonreactive URINE [id number] 14:53:00 Test Item Value Reference Range Comments CULTURE (BEAKER) (test knvl=2204) No growth HIV-1 ANTIGEN WITH HIV-1/2 [id number] 15:17:00 Test Item Value Reference Range Comments HIV-1 ANTIGEN WITH HIV 1\\T\\2 ANTIBODY (2) Nonreactive Nonreactive (BEAKER) (test adgr=4424) RAD, CHEST, 2 [id number] 13:04:00Referring: Dr. Vero Olsen for Exam:-& gt;Pre kidney transplant evaluation.FINAL REPORT Two views chest compared to July 19, 2005 Discussion: Old right-sided rib fractures are noted. Cardio pulmonary appearance unremarkable. No effusion or pneumothorax. Signed: Vipin Lock Verified Date/Time: 06/21/2017 13: 04:47 Reading Location: [facility] C0W Consult Reading Room HEMOGLOBIN [id number] 12 :22:00 Test Item Value Reference Range Comments HEMOGLOBIN A1C (BEAKER) (test zdoy=408) 7.8 % 4.3-6.1 PTH, [id number] 11:26:00 Test Item Value Reference Range Comments PARATHYROID HORMONE INTACT (BEAKER) (test 582.8 pg/mL 8.5-72.5 zovr=313) HEPATITIS B SURFACE [id number] 11:11:00 Test Item Value Reference Range Comments HEPATITIS B SURFACE ANTIBODY (BEAKER) (test < mIU/mL <8.0 ggrp=848) HEPATITIS B SURFACE [id number] 10:57:00 Test Item Value Reference Range Comments HEPATITIS B SURFACE ANTIGEN (2) (BEAKER) (test Nonreactive Nonreactive lvxc=6857) HEPATITIS B CORE ANTIBODY, [id number] 10:57:00 Test Item Value Reference Range Comments HEPATITIS B CORE IGM ANTIBODY (BEAKER) (test Nonreactive Nonreactive tkyi=944) HEPATITIS C [id number] 10:57:00 Test Item Value Reference Range Comments HEPATITIS C ANTIBODY (BEAKER) (test wzhr=148) Nonreactive Nonreactive [id number] 10:57:00 Test Item Value Reference Range Comments PROSTATE SPECIFIC ANTIGEN (BEAKER) (test yvlp=522) 0.2 ng/mL 0.0-4.0 COMPREHENSIVE METABOLIC [id number] 10:05:00 Test Item Value Reference Range Comments TOTAL PROTEIN (BEAKER) 6.8 gm/dL 6.0-8.3 (test nmgv=537) ALBUMIN (BEAKER) (test 3.9 g/dL 3.5-5.0 ymyg=4986) ALKALINE PHOSPHATASE 76 U/L 40-150 (BEAKER) (test zknl=770) BILIRUBIN TOTAL (BEAKER) 0.3 mg/dL 0.2-1.2 (test btns=680) SODIUM (BEAKER) (test 136 meq/L 136-145 ysnq=930) POTASSIUM (BEAKER) (test 5.5 meq/L 3.5-5.1 ejns=050) CHLORIDE (BEAKER) (test 116 meq/L 98-107 apqa=698) CO2 (BEAKER) (test 15 meq/L 22-29 klpc=990) BLOOD UREA NITROGEN 53 mg/dL 7-21 (BEAKER) (test kjcm=318) CREATININE (BEAKER) (test 2.34 mg/dL 0.57-1.25 zvuh=168) GLUCOSE RANDOM (BEAKER) 96 mg/dL 70-105 (test lqby=297) CALCIUM (BEAKER) (test 9.2 mg/dL 8.4-10.2 mnbf=322) AST (SGOT) (BEAKER) (test 24 U/L 5-34 qzyz=460) ALT (SGPT) (BEAKER) (test 23 U/L 6-55 ubrd=564) EGFR (BEAKER) (test 29 mL/min/1.73 sq m ESTIMATED GFR IS NOT pufd=3761) ACCURATE CREATININE CLEARANCE IN PREDICTING GLOMERULAR FILTRATION RATE. ESTIMATED GFR IS NOT APPLICABLE FOR DIALYSIS PATIENTS. URIC [id number] 09:57:00 Test Item Value Reference Range Comments URIC ACID (BEAKER) (test ijhk=100) 7.1 mg/dL 2.6-7.2 [id number] 09:57:00 Test Item Value Reference Range Comments PHOSPHORUS (BEAKER) (test rybb=850) 4.7 mg/dL 2.3-4.7 LIPID [id number] 09:57:00 Test Item Value Reference Range Comments TRIGLYCERIDES (BEAKER) (test pqva=676) 197 mg/dL CHOLESTEROL (BEAKER) (test hzkc=941) 183 mg/dL HDL CHOLESTEROL (BEAKER) (test vdbx=161) 29 mg/dL LDL CHOLESTEROL CALCULATED (BEAKER) (test 115 mg/dL bbjo=559) Triglyceride Reference Range: Low Risk <150 Borderline 150- 199 High Risk 200-499 Very High Risk >=500Cholesterol Reference Range: Low Risk <200 Borderline 200-239 High Risk > 240HDL Cholesterol Reference Range: Low Risk >=60 High Risk <40LDL Cholesterol Reference Range: Optimal <100 Near Optimal 100-129 Borderline 130-159 High 160-189 Very High >=190GAMMA GLUTAMYL TRANSFERASE (GGT)2017-06-21 09:57:00 Test Item Value Reference Range Comments GAMMA GLUTAMYL TRANSFERASE (BEAKER) (test rloc=250) 24 U/L 9-64 LACTATE DEHYDROGENASE (LDH)2017-06-21 09:57:00 Test Item Value Reference Range Comments LACTATE DEHYDROGENASE (BEAKER) (test gbqh=987) 148 U/L 125-220 URINALYSIS W/ [id number] 09:23:00 Test Item Value Reference Range Comments COLOR (BEAKER) (test seeg=164) Light Yellow CLARITY (BEAKER) (test enxm=345) Clear SPECIFIC GRAVITY UA (BEAKER) (test yxwb=261) 1.008 1.001-1.035 PH UA (BEAKER) (test twwe=082) 5.5 5.0-8.0 PROTEIN UA (BEAKER) (test ynqm=436) 200 mg/dL Negative GLUCOSE UA (BEAKER) (test dctw=784) Negative Negative KETONES UA (BEAKER) (test nyzp=712) Negative Negative BILIRUBIN UA (BEAKER) (test wpdc=294) Negative Negative BLOOD UA (BEAKER) (test qmfp=369) Trace Negative NITRITE UA (BEAKER) (test rpmp=333) Negative Negative LEUKOCYTE ESTERASE UA (BEAKER) (test yfov=738) Negative Negative UROBILINOGEN UA (BEAKER) (test usei=289) 0.2 mg/dL 0.2-1.0 RBC UA (BEAKER) (test kmkf=436) 1 /HPF WBC UA (BEAKER) (test gmsm=005) 1 /HPF SQUAMOUS EPITHELIAL (BEAKER) (test zzia=644) < /HPF SOURCE(BEAKER) (test rlfq=1174) OCCULT BLOOD, [id number] 19:03:00 Test Item Value Reference Range Comments FECAL OCCULT BLOOD (BEAKER) (test xmkl=764) Negative Negative OCCULT BLOOD, [id number] 19:03:00 Test Item Value Reference Range Comments FECAL OCCULT BLOOD (BEAKER) (test wdpb=391) Negative Negative TISSUE [id number] 18:04:00Surgical Pathology Report Case: [id number] Authorizing Provider: Ella Head MD Ordering Provider: Ella Head MD [facility] OP Collected: 01/20 1404 Pathologist: Addison Esposito MD Received: 01/20/2017 1404 Specimen: Kidney, Left KIDNEY ALLOGRAFT, NEEDLE BIOPSIES- FOCAL SEGMENTAL AND DIFFUSE GLOBAL GLOMERULOSCLEROSIS- INTERSTITIAL FIBROSIS AND TUBULAR ATROPHY, DIFFUSE (~70%)- MODERATE ARTERIAL INTIMAL SCLEROSIS- DIFFUSE ARTERIOLAR HYALINOSIS- 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 No features of acute rejection, chronic antibody mediated rejection, transplant glomerulopathy or transplant vasculopathy are seen. 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 Immunofluorescence was not very specific due to paucity ofdeposits and staining artefacts. Clinical correlation is suggested. Preliminary results were discussed with Dr. Villanueva on [id number], 91145 x3, 47710, [address]0318 x7, 314[address]Uiijls renal transplant in 2002 with slowly rising serum creatinine.Transplant kidney biopsyThe specimen is received in three partsall labeled with the patient's information and labeled "transplant kidney biopsy".Received in formalin are two bhakta-red core biopsies measuring 0.3 and 2 cm in length. The longer segment is bisected, submitted entirely A1. Received fresh is a 1 cm bhakta-red core biopsy, submitted for frozen for immunofluorescence staining and received in glutaraldehyde is a 0.6 cm bhakta- red core submitted for electron microscopy if needed. CG/plLIGHT MICROSCOPY: Sections show three cores of cortical tissue. Glomeruli: Approximately 30 glomeruli are examined of which 21 glomeruli are globally sclerotic/obsolescent or show near complete obsolescence. Some of the globally sclerotic glomeruli are enlarged and other are small with wrinkled and collapsed glomerular tuft. The remaining non-globally sclerotic glomeruli are enlarged and have segmental mild mesangial hypercellularity and segmental sclerosis. No endocapillaryhypercellularity, crescents or thrombi are seen. No glomerulitis is noted. PAS and Lovett stain showssegmental double contours of the glomerular capillaries. Tubules and interstitium: There is severe interstitial fibrosis with focal tubular atrophy and mild chronic interstitial inflammatory cell infiltration by lymphocytes involving about 70% of renal cortex. Some tubular profiles in areas of scarring show presence of degenerate cellular casts. Occasional reactive lymphoid aggregates are present. Dystrophic calcifications are present. Non-atrophic proximal tubules are focally ectatic with loss of brush borders. Vessels: Interlobular arteries show moderate intimal sclerosis and thickening. There is diffuse arteriolosclerosis. Special stains: Johnathan trichrome, PAS and Lovett silver stains were necessary for evaluation of this biopsy and showed expected staining patterns of internal control tissue matrix structures.Immunofluorescence:Histology: H&E-stained sections show 6 non- obsolescent glomeruli and 9 obsolescent glomeruli. Indirect immunofluorescence: C4d staining negative in peritubular capillaries. Glomeruli show peripheral staining of the capillary loops. Direct Immunofluorescence findings (performed on paraffin embedded tissue)The glomeruli with open capillary loops show scattered granular staining of peripheral capillary loops, positive for IgG, IgA , IgM, C3, C1q, kappa and lambda. In addition, there is staining artefact due to plasma proteins. The globally sclerosed glomeruli are also showing amorphous staining with the antibodies. All polyclonal antibodies used for immunofluorescence staining have been previously tested and shown to have appropriate reactivities with positive control specimens. Diagnostic Electron Microscopy: (performed on paraffin embedded tissue, as no glomerulus was present in tissue submitted for EM evaluation). Two nearly globally sclerotic glomeruli were examined ultrastructurally. Ultrastructure: Examination of the glomerular ultrastructure revealsthat the glomerular basement membrane is thickened, focally upto 845 nm (normal adult male bmbnxdn=946 - 430 nm; Monique Black ,Arch Pathol Lab Med 133:224-232). There is wrinkling of glomerular basement membranes. No subendothelial rarefaction is noted. Segmental double contours are seen with mesangial interpositioning. Focal hyalinosis is present. There are rare scattered subepithelial electron dense deposits. Podocyte foot processes are segmentally preserved. Peritubular capillaries show normal 1-3 lamellations. .CBC WITH PLATELET COUNT + MANUAL [id number] 10:07:00 Test Item Value Reference Range Comments WHITE BLOOD CELL COUNT (BEAKER) (test iksd=998) 8.4 K/ L 4.0-10.0 RED BLOOD CELL COUNT (BEAKER) (test tgkt=194) 2.76 M/ L 4.20-5.80 HEMOGLOBIN (BEAKER) (test ykds=461) 9.5 GM/DL 13.0-16.8 HEMATOCRIT (BEAKER) (test xwww=546) 29.2 % 40.0-50.0 MEAN CORPUSCULAR VOLUME (BEAKER) (test cyky=162) 106.0 fL 82.0-98.0 MEAN CORPUSCULAR HEMOGLOBIN (BEAKER) (test 34.4 pg 27.0-33.0 apro=975) MEAN CORPUSCULAR HEMOGLOBIN CONC (BEAKER) (test 32.5 GM/DL 32.0-36.0 tvrc=475) RED CELL DISTRIBUTION WIDTH (BEAKER) (test 13.5 % 10.3-14.2 mgkj=138) PLATELET COUNT (BEAKER) (test rtyc=164) 224 K/CU MM 150-430 MEAN PLATELET VOLUME (BEAKER) (test chtd=181) 7.0 fL 6.5-10.5 NUCLEATED RED BLOOD CELLS (BEAKER) (test 0 /100 WBC 0-0 wufj=517) NEUTROPHILS RELATIVE PERCENT (BEAKER) (test 51 % iiwa=304) LYMPHOCYTES RELATIVE PERCENT (BEAKER) (test 35 % bakz=815) MONOCYTES RELATIVE PERCENT (BEAKER) (test 11 % lzru=009) EOSINOPHILS RELATIVE PERCENT (BEAKER) (test 3 % jvhm=021) BASOPHILS RELATIVE PERCENT (BEAKER) (test 0 % yyhr=612) NEUTROPHILS ABSOLUTE COUNT (BEAKER) (test 4.31 K/ L 1.80-8.00 rhcc=417) LYMPHOCYTES ABSOLUTE COUNT (BEAKER) (test 2.92 K/ L 1.48-4.50 rbsz=275) MONOCYTES ABSOLUTE COUNT (BEAKER) (test 0.91 K/ L 0.00-1.30 mpum=940) EOSINOPHILS ABSOLUTE COUNT (BEAKER) (test 0.24 K/ L 0.00-0.50 uxbi=494) BASOPHILS ABSOLUTE COUNT (BEAKER) (test 0.03 K/ L 0.00-0.20 zokt=922) 0.00(MANUAL DIFFERENTIAL)2017-01-20 10:07:00 Test Item Value Reference Range Comments TOTAL COUNTED (BEAKER) (test hisw=0523) WBC MORPHOLOGY (BEAKER) (test pdsb=886) Normal PLT MORPHOLOGY (BEAKER) (test xrak=503) Normal MACROCYTES (BEAKER) (test zdmk=398) 1+ few COMPREHENSIVE METABOLIC [id number] 09:02:00 Test Item Value Reference Range Comments TOTAL PROTEIN (BEAKER) 6.3 gm/dL 6.0-8.3 Specimen slightly (test ubbb=605) hemolyzed ALBUMIN (BEAKER) (test 3.3 g/dL 3.5-5.0 Specimen slightly jfxw=4084) hemolyzed ALKALINE PHOSPHATASE 86 U/L 40-150 (BEAKER) (test sfgo=421) BILIRUBIN TOTAL (BEAKER) 0.2 mg/dL 0.2-1.2 Specimen slightly (test qjto=008) hemolyzed SODIUM (BEAKER) (test 138 meq/L 136-145 mohx=915) POTASSIUM (BEAKER) (test 5.3 meq/L 3.5-5.1 Specimen slightly bwap=412) hemolyzed CHLORIDE (BEAKER) (test 113 meq/L 98-107 oimb=217) CO2 (BEAKER) (test 16 meq/L 22-29 oxab=621) BLOOD UREA NITROGEN 57 mg/dL 7-21 (BEAKER) (test goqd=169) CREATININE (BEAKER) (test 2.37 mg/dL 0.57-1.25 Specimen slightly yexb=936) hemolyzed GLUCOSE RANDOM (BEAKER) 138 mg/dL 70-105 (test dvzg=352) CALCIUM (BEAKER) (test 9.2 mg/dL 8.4-10.2 kkad=259) AST (SGOT) (BEAKER) (test 33 U/L 5-34 Specimen slightly qben=895) hemolyzed ALT (SGPT) (BEAKER) (test 32 U/L 6-55 Specimen slightly sgnb=347) hemolyzed EGFR (BEAKER) (test 29 mL/min/1.73 sq m ESTIMATED GFR IS NOT vprj=2889) ACCURATE CREATININE CLEARANCE IN PREDICTING GLOMERULAR FILTRATION RATE. ESTIMATED GFR IS NOT APPLICABLE FOR DIALYSIS PATIENTS. [id number] 08:35:00 Test Item Value Reference Range Comments PROTIME (BEAKER) (test jldu=439) 13.5 seconds 11.7-14.7 INR (BEAKER) (test jhig=222) 1.0 <=5.9 PARTIAL THROMBOPLASTIN TIME (BEAKER) (test 31.3 seconds 22.5-36.0 aocq=739) RECOMMENDED COUMADIN/WARFARIN INR THERAPY RANGESSTANDARD DOSE: 2.0 - 3.0 Includes: PROPHYLAXIS forvenous thrombosis, systemic embolization; TREATMENT for venous thrombosis and/or pulmonary embolus.HIGH RISK: Target INR is 2.5-3.5 for patients with mechanical heart valves.
--- NOTE | 2018-12-20 12:32 | RAD REPORT ---
EXAM DESCRIPTION: RAD - Wrist Right 3 View - 12/20/2018 12:22 pm CLINICAL HISTORY: PAIN Pain COMPARISON: No comparisons FINDINGS: Diffuse osteopenia. Mild soft tissue swelling is seen adjacent to the ulnar styloid. No fr actures appreciated. Heavy vascular calcifications.
[2018-12-20] MEDS ORDERED: HYDROCODONE/APAP 10/325 TAB ONE (13:30)
--- NOTE | 2018-12-20 14:02 | RAD REPORT ---
EXAM DESCRIPTION: CT - Head C Spine Mpr Wo Con - 12/20/2018 1:26 pm CLINICAL HISTORY: Head and neck injury status post fall. Head and neck pain COMPARISON: None. TECHNIQUE: Computed axial tomography of the head and cervical spine was obtained. Sagittal and coronal reconstruction was performed. All CT scans are performed using dose optimization technique as appropriate and may include automated exposure control or mA/KV adjustment according to patient size. FINDINGS: An intracranial bleed is not seen. The ventricles are normal in caliber. An extra-axial fl uid collection is not noted.Fluid within the visualized sinuses and mastoids is not seen A cervical fracture is not visualized. Moderate anterior subluxation of C3 on C4. Marked disc space n arrowing and osteophytes. Subchondral cyst is present within the superior aspect of C4 vertebral body . IMPRESSION: No acute intracranial abnormality is seen. A cervical fracture is not visualized. Moderate anterior subluxation of C3 on C4. Given that there is no soft tissue swelling and considerab le degenerative changes probably is chronic. If patient continues have symptoms to suggest intracranial/spinal cord/ligamentous pathology MRI woul d be recommended
--- NOTE | 2018-12-20 14:30 | ER ---
Nurse's Notes [facility] Name: Mumtaz Clark Age: 53 yrs Sex: Male : 1965 Arrival Date: 12/20/2018 Time: 11:21 Bed 24 Private MD: None, None Diagnosis: Clinical Scaphoid Fracture;Unspecified injury of head Presentation: 12/20 11:38 Presenting complaint: Patient states: Tripped and fell yesterday and hit head, abrasion ph noted to L side of forehead, also reports pain to R forearm near dialysis shunt, denies LOC. Care prior to arrival: None. Mechanism of Injury: Fall from standing position. Trauma event details: Injury occurred in the [facility], Injury occurred: at home. Injury occurred: December 19, 2018. 11:38 Acuity: RM 3 ph 11:38 Method Of Arrival: Ambulatory ph 13:05 Risk Assessment: Do you want to hurt yourself or someone else? Patient reports no ca1 desire to harm self or others. 13:05 Transition of care: patient was not received from another setting of care. Onset of ca1 symptoms was December 20, 2018. Initial Sepsis Screen: Does the patient meet any 2 criteria? No. Patient's initial sepsis screen is negative. Does the patient have a suspected source of infection? No. Patient's initial sepsis screen is negative. 13:05 Onset of symptoms was December 20, 2018. ca1 Historical: - Allergies: 11:41 Hectorol; ph - PMHx: 11:41 Hypertension; kidney transplant; liver transplant; neuropathy; ph - PSHx: 11:41 Hernia repair; ph - Immunization history:: Flu vaccine is up to date. - Social history:: Smoking status: Patient/guardian denies using tobacco. - Ebola Screening: : No symptoms or risks identified at this time. Screenin:05 Abuse screen: Denies threats or abuse. Denies injuries from another. Nutritional ca1 screening: No deficits noted. Tuberculosis screening: No symptoms or risk factors identified. Fall Risk Fall in past 12 months (25 points). Assessment: 13:05 General: Appears in no apparent distress. uncomfortable, ill, Behavior is calm, ca1 cooperative, appropriate for age. Pain: Complains of pain in R wrist, R knee, L rib cage Pain currently is 7 out of 10 on a pain scale. Pain began 1 day ago. Neuro: Level of Consciousness is awake, alert, obeys commands, Oriented to person, place, time, situation. Cardiovascular: Heart tones S1 S2 present Capillary refill < 3 seconds Patient's skin is warm and dry. Respiratory: Airway is patent Respiratory effort is even, unlabored, Respiratory pattern is regular, symmetrical, Breath sounds are clear bilaterally. GI: No deficits noted. No signs and/or symptoms were reported involving the gastrointestinal system. : No signs and/or symptoms were reported regarding the genitourinary system. Reports pt on dialysis 3x a week. EENT: No deficits noted. No signs and/or symptoms were reported regarding the EENT system. Derm: Skin is fragile, Skin is pink, warm \T\ dry. Bruising that is dark purple, on outer aspect of left eyebrow. Musculoskeletal: Capillary refill < 3 seconds, Swelling present in dorsal aspect of right wrist. 14:16 Reassessment: Patient appears in no apparent distress at this time. Patient and/or ca1 family updated on plan of care and expected duration. Pain level reassessed. Patient is alert, oriented x 3, equal unlabored respirations, skin warm/dry/pink. 14:40 Reassessment: Pt actively vomiting when I went inside the pt's room to discharge. ca1 Informed provider. 15:00 Reassessment: Patient appears in no apparent distress at this time. Patient and/or ca1 family updated on plan of care and expected duration. Pain level reassessed. Patient is alert, oriented x 3, equal unlabored respirations, skin warm/dry/pink. Pt denies N/V, states feeling better. Vital Signs: 11:41 BP 169 / 102; Pulse 73; Resp 22; Temp 98.1; Pulse Ox 100% on R/A; ph 13:05 BP 181 / 102; Pulse 72; Resp 19; Pulse Ox 99% on R/A; ca1 14:16 BP 172 / 100; Pulse 70; Resp 19; Pulse Ox 99% on R/A; ca1 15:00 BP 165 / 92; Pulse 71; Resp 19; Pulse Ox 100% on R/A; ca1 ED Course: 11:21 Patient arrived in ED. dp 11:21 None, None is Private Physician. dp 11:40 Triage completed. ph 11:42 Arm band placed on. ph 12:20 Wrist Right 3 View XRAY In Process Unspecified. EDMS 12:56 Adolfo Bah PA is PHCP. [facility] 12:56 Lefty Vyas MD is Attending Physician. [facility] 13:05 Patient has correct armband on for positive identification. Bed in low position. Call ca1 light in reach. Side rails up X 1. Pulse ox on. NIBP on. Warm blanket given. 13:17 Aliza Thomas, RN is Primary Nurse. ca1 13:24 CT completed. Patient tolerated procedure well. Patient moved to CT via wheelchair. sj Patient moved back from CT. 13:26 CT Head C Spine In Process Unspecified. EDMS 14:29 Avinash Resendez MD is Referral Physician. [facility] 15:00 No provider procedures requiring assistance completed. ca1 15:13 Patient did not have IV access during this emergency room visit. ca1 Administered Medications: 13:20 Drug: [place] 10 mg-325 mg 1 tabs Route: PO; ca1 14:41 Drug: Zofran 4 mg Route: PO; ca1 Outcome: 14:29 Discharge ordered by MD. [facility] 15:12 Discharged to home ambulatory. ca1 15:12 Condition: stable 15:12 Discharge instructions given to patient, Instructed on discharge instructions, follow up and referral plans. medication usage, Demonstrated understanding of instructions, follow-up care, medications, Prescriptions given X 1. 15:13 Patient left the ED. ca1 Signatures: Dispatcher [employer] EDDC Adolfo Bah PA PA Asmita Govea Sita Ortiz RN RN ph Aliza Thomas RN RN ca1 Miguel Prado dp Corrections: (The following items were deleted from the chart) 15:09 14:20 Reassessment: Pt actively vomiting when I went inside the pt's room to discharge. ca1 Informed provider. ca1 22:55 22:55 Ebola Screening: No symptoms or risks identified at this time ca1 ca1
--- NOTE | 2018-12-20 14:30 | EDPHYS ---
Physician Documentation [facility] Name: Mumtaz Clark Age: 53 yrs Sex: Male : 1965 Arrival Date: 12/20/2018 Time: 11:21 Bed 24 Private MD: None, None ED Physician Lefty Vyas HPI: 12/20 12:58 This 53 yrs old Male presents to ER via Ambulatory with complaints of Fall jmm Injury, Right hand pain. 12:58 Details of fall: The patient fell from an upright position. Onset: The symptoms/episode jmm began/occurred acutely. Associated injuries: The patient sustained injury to the head, wrist. This is a 53 year old male with a history of htn, edrs that presents to the ED with complaints of pain to his right wrist. Patient fell after tripping from a standing position yesterday. Denies vomiting. Patient also states injuring his right knee but denies pain to this area. . Historical: - Allergies: 11:41 Hectorol; ph - PMHx: 11:41 Hypertension; kidney transplant; liver transplant; neuropathy; ph - PSHx: 11:41 Hernia repair; ph - Immunization history:: Flu vaccine is up to date. - Social history:: Smoking status: Patient/guardian denies using tobacco. - Ebola Screening: : No symptoms or risks identified at this time. ROS: 12:58 Constitutional: Negative for fever, chills, and weight loss, Cardiovascular: Negative jmm for chest pain, palpitations, and edema, Respiratory: Negative for shortness of breath, cough, wheezing, and pleuritic chest pain. 12:58 MS/extremity: Positive for injury or acute deformity, pain. 12:58 All other systems are negative. Exam: 12:58 Constitutional: This is a well developed, well nourished patient who is awake, alert, jmm and in no acute distress. 12:58 Eyes: EOMI, no conjunctival erythema appreciated Chest/axilla: Normal chest wall appearance and motion. Cardiovascular: Regular rate and rhythm. No edema appreciated Respiratory: Normal respirations, no respiratory distress appreciated 12:58 Head/face: abrasion noted to the left forehead. 12:58 Musculoskeletal/extremity: right wrist is diffusely ttp, (+) scaphoid tenderness, full radial pulse, compartments are soft NVI, no pain on palpation of the right knee, FROM is appreciated, NVI. 12:58 Skin: ecchymosis noted to the right knee, abrasion noted to the left side of the forehead. . 12:58 Neuro: Orientation: is normal, Mentation: is normal, Memory: is normal. 12:58 Psych: Behavior/mood is pleasant, cooperative. Vital Signs: 11:41 BP 169 / 102; Pulse 73; Resp 22; Temp 98.1; Pulse Ox 100% on R/A; ph 13:05 BP 181 / 102; Pulse 72; Resp 19; Pulse Ox 99% on R/A; ca1 14:16 BP 172 / 100; Pulse 70; Resp 19; Pulse Ox 99% on R/A; ca1 15:00 BP 165 / 92; Pulse 71; Resp 19; Pulse Ox 100% on R/A; ca1 Procedures: 12:58 Splinting: Splint applied to right hand using thumb spica. applied by tech. Examined by capri me, post splint application: neurovascular intact, 2+ distal pulses palpable, brisk capillary refill noted, Patient tolerated well. MDM: 12:58 Patient medically screened. [facility] 14:28 Data reviewed: vital signs, nurses notes. Counseling: I had a detailed discussion with capri the patient and/or guardian regarding: the historical points, exam findings, and any diagnostic results supporting the discharge/admit diagnosis, radiology results, the need for outpatient follow up, to return to the emergency department if symptoms worsen or persist or if there are any questions or concerns that arise at home. ED course: Due to scaphoid tenderness, thumb spica is applied, patient advised to follow up with orthopedics for further evaluation. patient understood and agrees with the plan of care. . 12/20 11:43 Order name: Wrist Right 3 View XRAY; Complete Time: 13:05 ph 12/20 13:10 Order name: CT Head C Spine; Complete Time: 14:15 capri Administered Medications: 13:20 Drug: [place] 10 mg-325 mg 1 tabs Route: PO; ca1 14:41 Drug: Zofran 4 mg Route: PO; ca1 Disposition: 15:21 Co-signature as Attending Physician, Lefty Vyas MD I agree with the assessment and [facility] plan of care. Disposition: 12/20/18 14:29 Discharged to Home. Impression: Clinical Scaphoid Fracture, Unspecified injury of head. - Condition is Stable. - Discharge Instructions: Head Injury, Adult, Scaphoid Fracture. - Prescriptions for Tylenol- Codeine #3 300-30 mg Oral Tablet - take 1 tablet by ORAL route every 6 hours As needed; 12 tablet. - Medication Reconciliation Form, Thank You Letter, Antibiotic Education, Prescription Opioid Use form. - Follow up: Avinash Resendez MD; When: 2 - 3 days; Reason: Recheck today's complaints, Continuance of care, Re-evaluation by your physician. Signatures: Dispatcher [employer] EDLefty Saleem MD MD cha Mickail, Joel, PA PA Sita Cadena, RN RN ph Aliza Thomas RN RN ca1 Corrections: (The following items were deleted from the chart) 15:13 14:29 12/20/2018 14:29 Discharged to Home. Impression: Clinical Scaphoid Fracture; ca1 Unspecified injury of head. Condition is Stable. Forms are Medication Reconciliation Form, Thank You Letter, Antibiotic Education, Prescription Opioid Use. Follow up: Avinash Resendez; When: 2 - 3 days; Reason: Recheck today's complaints, Continuance of care, Re-evaluation by your physician. [facility] 22:55 22:55 Ebola Screening: No symptoms or risks identified at this time ca1 ca1
[2018-12-20] MEDS ORDERED: ONDANSETRON 4 MG (ODT) TAB ONE (14:58)
== END 2018-12-20 15:13 | disposition home or self-care (01) ==
LOC: ER 11:12
DX: S62.001A Unspecified fracture of navicular [scaphoid] bone of right wrist, initial encounter for closed fracture (principal); S09.90XA Unspecified injury of head, initial encounter; W01.0XXA Fall on same level from slipping, tripping and stumbling without subsequent striking against object, initial encounter; Y93.9 Activity, unspecified; Y92.9 Unspecified place or not applicable; Z94.0 Kidney transplant status; Z94.4 Liver transplant status; Z88.8 Allergy status to other drugs, medicaments and biological substances; I10 Essential (primary) hypertension
CPT/HCPCS: 70450; 72125; 99284

== ENCOUNTER 2019-04-06 10:09 | Emergency (ER) | payer OTHER ==
--- OUTSIDE RECORDS SUMMARY | 2019-04-06 10:14 | XMS REPORT | Clinical Summary ---
:1965 Author Organization [facility] Address [address] [place] [address] Care Team Providers Name Role Phone Hannah Perez MD Primary Care Provider Allergies Active Allergy Reactions Severity Noted Date Comments Adhesive Tape-Silicones Rash Low 04/03/2018 Allergic to tape left on up to 3 days Doxercalciferol Other (See Comments) 10/22/2018 Sweating, Fever like symptoms Medications Medication Sig Dispensed Refills Start Date End Date Status tacrolimus Take 2 mg by 0 Active (PROGRAF) 1 MG mouth 2 (two) capsule times a day. LISINOPRIL ORAL Take by mouth 0 Active nightly. Pending dose metoprolol Take 100 mg by 0 Active tartrate mouth 2 (two) (LOPRESSOR) 100 mg times a day. tablet folic acid/vit B Take 1 tablet 0 Active complex and C by mouth (RENAL VITAMIN daily. ORAL) predniSONE Take 1 tablet 90 tablet 0 02/20/2019 Active (DELTASONE) 5 mg (5 mg total) 9 tabletIndications: by mouth every S/P liver morning for 90 transplant (HCC) days. sevelamer Take 1,600 mg 0 Active (RENVELA) 800 mg by mouth 3 tablet (three) times a day with meals. metoprolol TAKE 1 TABLET 180 tablet 1 03/12/2019 Active tartrate BY MOUTH TWICE (LOPRESSOR) 100 mg DAILY tablet lisinopril TAKE 1 TABLET 90 tablet 1 03/21/2019 Active (PRINIVIL,ZESTRIL) BY MOUTH EVERY 20 mg tablet DAY diltiazem Take 90 mg by 0 10/03/2014 Discontinued (CardIZEM) 120 MG mouth 2 (two) 8 tablet times a day. lisinopril Take 20 mg by 0 Discontinued (PRINIVIL,ZESTRIL) mouth nightly. 8 20 mg tablet metoprolol Take 100 mg by 0 10/03/2014 Discontinued tartrate mouth 2 (two) 9 (LOPRESSOR) 100 mg times a day. tablet predniSONE Take 5 mg by 0 Discontinued (DELTASONE) 5 mg mouth every 9 tablet morning. tacrolimus Take 2 mg by 0 Discontinued (PROGRAF) 1 MG mouth 2 (two) 8 capsule times a day. darbepoetin Inject 0.3 mL 1.2 mL 0 08/26/2018 ailyn-polysorbate (60 mcg total) 8 (ARANESP) 60 under the skin mcg/0.3 mL once a week at syringeIndications 4pm for 30 : anemia due to days. renal failure ferrous sulfate Take 1 tablet 60 tablet [...] moderate pain for up to 10 days. metoprolol TAKE 1 TABLET 180 tablet 0 12/02/2018 Discontinued tartrate BY MOUTH TWICE 9 (LOPRESSOR) 100 mg DAILY tablet ferrous sulfate Take by mouth. 0 Discontinued (IRON ORAL) 9 cinacalcet Take 30 mg by 0 Discontinued (SENSIPAR) 30 MG mouth daily. 9 tablet Active Problems Problem Noted Date Other complication due to venous access device 11/26/2018 Overview: Added automatically from request for surgery [id number] ESRD (end stage renal disease) 09/17/2018 Overview: Added automatically from request for surgery [id number] Severe protein-calorie malnutrition 08/19/2018 Acute hyperkalemia 08/19/2018 [...] have regular follow-up with PCP. Number for [facility] primary care office was given. Hx of [...] Encounters Date Type Specialty Care Team Description 03/25/2019 Office Visit Cardiovascular Ainsley Bowman, Visit for wound check (Primary Dx) 03/20/2019 Refill NephHannah Menjivar MD 03/12/2019 Refill Nephrology Hannah Perez MD 02/22/2019 Telephone Transplant Irby, Referral - Kidney Txp RAGHU Xie 02/[facility] ([facility]) (Primary Dx); Hannah Kessler, Atherosclerosis of [place] artery of both lower extremities with rest pain ([facility]); MD S/P liver transplant ([facility]) 02/14/2019 Abstract Transplant Ladonna Suazo RN 02/14/2019 Telephone Cardiovascular Andrade Tracy MA 02/13/2019 Surgery Procedural Ainsley Bowman, right upper extrmeity Cardiology Angiogram/Fistulogra m possible Angioplasty possible stenting [13017 (CPT)] 02/13/2019 Hospital Encounter Procedural Ainsley Bowman, ESRD (end stage renal Cardiology MD disease) ([facility]) 02/12/2019 Prep for Surgery Cardiovascular Jaqui Vicente, MA 02/12/2019 Orders Only Cardiovascular Jules, ESRD (end stage renal Jaqui, [place] disease) ([facility]) (Primary Dx) 01/31/2019 Prep for Surgery Cardiovascular Andrade Tracy, ESRD (end stage renal disease) ([facility]) (Primary Dx); MA Pre-op testing 01/02/2019 Anesthesia Event [facility] 12/31/2018 Office Visit Cardiovascular Ainsley Bowman, ESRD (end stage renal disease) ([facility]) (Primary Dx); Preop testing 12/31/2018 Hospital Encounter Radiology Ainsley Bowman, ESRD (end stage renal MD disease) ([facility]) 12/12/2018 Orders Only Cardiovascular TracyAndrade arango, ESRD (end stage renal disease) ([facility]) (Primary Dx); MA Other complication due to venous access device, initial encounter ( [facility]) 12/10/2018 Orders Only Cardiovascular Tracy, Andrade, MA 12/10/2018 Orders Only Cardiovascular Tracy, Andrade, ESRD (end stage renal MA disease) ([facility]) (Primary Dx) 12/07/2018 Anesthesia Event Vascular Surgery Hannah Nguyen MD 12/07/2018 Surgery Vascular Surgery Ainsley Bowman, RIGHT ARM FISTULOGRAM, ANGIOPLASTY, 12/07/2018 Hospital Encounter Vascular Surgery Ainsley Bowman, Other complication MD due to venous access device, initial encounter ([facility]) 12/07/2018 Hospital Encounter Radiology Ainsley Bowman, ESRD (end stage renal MD disease) on dialysis ([facility]) 12/06/2018 Telephone Family Hannah Lamar MD 12/01/2018 Refill NephJatin Feldman MD 12/01/2018 Refill Internal Medicine Brad Herrera, 11/26/2018 Office Visit Cardiovascular Ainsley Bowman, Other complication MD due to venous access device, initial encounter (HCC) (Primary Dx) 10/22/2018 Office Visit Cardiovascular Ainsley Bowman, ESRD (end stage renal MD disease) (HCC) (Primary Dx) 10/03/2018 Surgery Vascular Surgery Ainsley Bowman, creation right MD radiocephalic av fistula 10/03/2018 Anesthesia Event Vascular Surgery Dusty Seaman MD 10/03/2018 Hospital Encounter Vascular Surgery Ainsley Bowman MD 09/27/2018 Refill Internal Medicine Brad Herrera, 09/17/2018 Office Visit Cardiovascular Ainsley Bowman, ESRD (end stage renal MD disease) (HCC) (Primary Dx) 09/14/2018 Abstract Transplant Mary Blanc RN 09/14/2018 Documentation Transplant Cole, Patient call RAGHU Lucas 09/14/2018 Telephone Transplant Jayashere, Medication Problem; Mary RN Complaint 09/05/2018 Orders Only Nephrology Laila Mcgee MA 09/04/2018 Telephone Family Hannah Lamar MD 08/23/2018 Refill Internal Medicine Brad Herrera, 08/18/2018 Hospital Encounter General Internal Juanito Pendleton HARVEY (acute kidney injury) ([facility]) (Primary Dx); - Medicine MD Alden Kidney transplant as cause of abnormal reaction or later complication; 08/24/2018 Jhoana Rosa, Acute right hip pain Rama Moreno MD 05/25/2018 Telephone Family Medicine Hannah Tyler MA 05/24/2018 Office Visit Family Hemal Perez, Serum potassium elevated ( Primary Dx); Hannah Kessler, Elevated serum creatinine; Muscular atrophy, unspecified site after 04/05/2018 Immunizations Name Dates Previously Given Next Due FLUCELVAX QUAD PF (0.5mL syringe) 08/24/2018 Social History Tobacco Use Types Packs/Day Years Used Date Former Smoker Cigarettes 2 Quit: 1989 Smokeless Tobacco: Never Used Comments: 1-2 cigarettes/day; Denies current use of nicotine products Alcohol Use Drinks/Week oz/Week Comments No Sex Assigned at Date Recorded Not on file Job Start Date Occupation Industry Not on file Not on file Not on file Travel History Travel Start Travel End No recent travel history available. Last Filed Vital Signs Vital Sign Reading Time Taken Blood Pressure 108/73 03/25/2019 10:21 AM CDT Pulse 70 03/25/2019 10:21 AM CDT Temperature 36.6 C (97.8 F) 03/25/2019 10:21 AM CDT Respiratory Rate 14 03/25/2019 10:21 AM CDT Oxygen Saturation 96% 02/20/2019 10:47 AM CDT Inhaled Oxygen Concentration - - Weight 47.6 kg (105 lb) 03/25/2019 10:21 AM CDT Height 175.3 cm (5' 9") 03/25/2019 10:21 AM CDT Body Mass Index 15.51 03/25/2019 10:21 AM CDT Plan of Treatment Health Maintenance Due Date Last Done Comments COLONOSCOPY SCREENING 2014 SHINGLES VACCINES (#1) 2014 INFLUENZA VACCINE 05/09/2019 08/24/2018 Implants Implanted Type Area Recruitment Consultant Device Shelf Model / Identifier Expiration Serial / Date Lot Clip Ligtng Weck Hemoclip Plus W/ Tape Ti [place] - [id number] Medical Right: [employer] 03/27/2023 [id number] / Implanted: Qty: 1 on 10/03/2018 by Ainsley Bowman MD Clips for Arm, / Internal Use Upper [id number] Clip Ligtng Weck Hemoclip Plus W/ Tape Ti - [id number] Medical Right: WECK CLOSURE 10/30/2022 [id number] / Implanted: Qty: 2 on 10/03/2018 by Ainsley Bowman MD Clips for Arm, SYSTEMS / Internal Use Upper [id number] Procedures Procedure Name Priority Date/Time Associated Diagnosis Comments CV ANGIOGRAM EXTREMITY Routine 02/13/2019 4:03 PM ESRD (end stage renal UNILATERAL CDT disease) ([facility]) Procedure Note - Ainsley Bowman MD - 03/06/2019 9:22 AM CDT POC PANEL Routine 02/13/2019 11:53 AM Results for this CDT procedure are in the results section. ESTIMATED GFR Routine 02/13/2019 11:53 AM Results for this CDT procedure are in the results section. SMEAR REVIEW STAT 02/13/2019 11:45 AM Results for this CDT procedure are in the results section. HC COMPLETE BLD COUNT STAT 02/13/2019 11:45 AM Results for this W/AUTO DIFF CDT procedure are in the results section. CT ANGIOGRAM CHEST W Routine 12/31/2018 11:02 AM ESRD (end stage Results for this WO CONTRAST CDT renal disease) ([facility]) procedure are in the results section. US DUPLEX Routine 12/24/2018 2:36 PM ESRD (end stage Results for this HEMODIALYSIS AVG AVF CDT renal disease) ([facility]) procedure are in ACCESS the results section. POC GLUCOSE Routine 12/07/2018 11:33 AM Results for this APPLICATIONS SPECIALIST procedure are in the results section. OR FL < 1 HOUR Routine 12/07/2018 11:10 AM ESRD (end stage Results for this APPLICATIONS SPECIALIST renal disease) on procedure are in dialysis ([facility]) the results section. FISTULOGRAPHY, 12/07/2018 10:05 AM Other complication DIALYSIS SHUNT, AND APPLICATIONS SPECIALIST due to venous access DECLOTTING device, initial encounter ([facility]) POC PANEL 4 Routine 12/07/2018 8:43 AM Results for this APPLICATIONS SPECIALIST procedure are in the results section. US DUPLEX Routine 11/09/2018 10:14 AM ESRD (end stage Results for this HEMODIALYSIS AVG AVF APPLICATIONS SPECIALIST renal disease) ([facility]) procedure are in ACCESS the results section. POC GLUCOSE Routine 10/03/2018 11:32 AM Results for this APPLICATIONS SPECIALIST procedure are in the results section. POC GLUCOSE Routine 10/03/2018 9:57 AM Results for this APPLICATIONS SPECIALIST procedure are in the results section. CREATION, AV FISTULA, 10/03/2018 8:00 AM ESRD (end stage UPPER EXTREMITY, APPLICATIONS SPECIALIST renal disease) ([facility]) DISTAL Case Notes EXTENDED RECOVERY NEEDED, @0967 GEO R/S FROM 09/24 TO 10/03-09/21/18TW Special Needs EXTENDED RECOVERY NEEDED ANESTHESIA PERIPHERAL BLOCK Routine 10/03/2018 7:53 AM APPLICATIONS SPECIALIST Procedure Note - Dusty Seaman MD - 10/03/2018 7:53 AM APPLICATIONS SPECIALIST Peripheral Block Performed by: Dusty Seaman MD [...] throughout POC PANEL 4 Routine 10/03/2018 6:54 AM Results for this APPLICATIONS SPECIALIST procedure are in the results section. POC GLUCOSE Routine 08/24/2018 5:09 PM Results for this APPLICATIONS SPECIALIST procedure are in the results section. POC GLUCOSE Routine 08/24/2018 1:49 PM Results for this APPLICATIONS SPECIALIST procedure are in the results section. US VEIN MAPPING UPPER Routine 08/24/2018 12:30 PM Results for this EXTREMITY BILATERAL APPLICATIONS SPECIALIST procedure are in the results section. POC GLUCOSE Routine 08/24/2018 8:04 AM Results for this APPLICATIONS SPECIALIST procedure are in the results section. HC COMPLETE BLD COUNT Routine 08/24/2018 5:30 AM Results for this W/AUTO DIFF APPLICATIONS SPECIALIST procedure are in the results section. FK506 TACROLIMUS LEVEL, Routine 08/24/2018 5:30 AM Results for this RANDOM APPLICATIONS SPECIALIST procedure are in the results section. ESTIMATED GFR Routine 08/24/2018 4:00 AM Results for this APPLICATIONS SPECIALIST procedure are in the results section. MAGNESIUM LEVEL Routine 08/24/2018 4:00 AM Results for this APPLICATIONS SPECIALIST procedure are in the results section. PHOSPHORUS LEVEL Routine 08/24/2018 4:00 AM Results for this APPLICATIONS SPECIALIST procedure are in the results section. BASIC METABOLIC PANEL Routine 08/24/2018 4:00 AM Results for this APPLICATIONS SPECIALIST procedure are in the results section. POC GLUCOSE Routine 08/23/2018 9:12 PM Results for this APPLICATIONS SPECIALIST procedure are in the results section. POC GLUCOSE Routine 08/23/2018 4:42 PM Results for this APPLICATIONS SPECIALIST procedure are in the results section. POC GLUCOSE Routine 08/23/2018 12:18 PM Results for this APPLICATIONS SPECIALIST procedure are in the results section. POC GLUCOSE Routine 08/23/2018 8:18 AM Results for this APPLICATIONS SPECIALIST procedure are in the results section. HC COMPLETE BLD COUNT Routine 08/23/2018 5:10 AM Results for this W/AUTO DIFF APPLICATIONS SPECIALIST procedure are in the results section. FK506 TACROLIMUS LEVEL, Routine 08/23/2018 5:10 AM Results for this RANDOM APPLICATIONS SPECIALIST procedure are in the results section. ESTIMATED GFR Routine 08/23/2018 4:00 AM Results for this APPLICATIONS SPECIALIST procedure are in the results section. PHOSPHORUS LEVEL Routine 08/23/2018 4:00 AM Results for this APPLICATIONS SPECIALIST procedure are in the results section. MAGNESIUM LEVEL Routine 08/23/2018 4:00 AM Results for this APPLICATIONS SPECIALIST procedure are in the results section. BASIC METABOLIC PANEL Routine 08/23/2018 4:00 AM Results for this APPLICATIONS SPECIALIST procedure are in the results section. POC GLUCOSE Routine 08/22/2018 9:39 PM Results for this APPLICATIONS SPECIALIST procedure are in the results section. POC GLUCOSE Routine 08/22/2018 5:27 PM Results for this APPLICATIONS SPECIALIST procedure are in the results section. VENOUS BLOOD GAS Routine 08/22/2018 3:20 PM Results for this APPLICATIONS SPECIALIST procedure are in the results section. HEMODIALYSIS Routine 08/22/2018 3:10 PM APPLICATIONS SPECIALIST POC GLUCOSE Routine 08/22/2018 1:53 PM Results for this APPLICATIONS SPECIALIST procedure are in the results section. US DUPLEX ARTERIAL Routine 08/22/2018 12:15 PM Results for this LOWER EXTREMITY APPLICATIONS SPECIALIST procedure are in BILATERAL the results section. US DUPLEX VENOUS LOWER Routine 08/22/2018 10:42 AM Results for this EXTREMITY BILATERAL APPLICATIONS SPECIALIST procedure are in the results section. OCCULT BLOOD, STOOL Routine 08/22/2018 7:30 AM Results for this APPLICATIONS SPECIALIST procedure are in the results section. ESTIMATED GFR Routine 08/22/2018 6:10 AM Results for this APPLICATIONS SPECIALIST procedure are in the results section. HEPATITIS ACUTE PANEL Routine 08/22/2018 6:10 AM Results for this APPLICATIONS SPECIALIST procedure are in the results section. HIV AG/AB COMBINATION Routine 08/22/2018 6:10 AM Results for this APPLICATIONS SPECIALIST procedure are in the results section. LDH Routine 08/22/2018 6:10 AM Results for this APPLICATIONS SPECIALIST procedure are in the results section. HAPTOGLOBIN Routine 08/22/2018 6:10 AM Results for this APPLICATIONS SPECIALIST procedure are in the results section. RETICULOCYTE COUNT Routine 08/22/2018 6:10 AM Results for this APPLICATIONS SPECIALIST procedure are in the results section. FK506 TACROLIMUS LEVEL, Routine 08/22/2018 6:10 AM Results for this RANDOM APPLICATIONS SPECIALIST procedure are in the results section. IONIZED CALCIUM Routine 08/22/2018 6:10 AM Results for this APPLICATIONS SPECIALIST procedure are in the results section. PHOSPHORUS LEVEL Routine 08/22/2018 6:10 AM Results for this APPLICATIONS SPECIALIST procedure are in the results section. MAGNESIUM LEVEL Routine 08/22/2018 6:10 AM Results for this APPLICATIONS SPECIALIST procedure are in the results section. HC COMPLETE BLD COUNT Routine 08/22/2018 6:10 AM Results for this W/AUTO DIFF APPLICATIONS SPECIALIST procedure are in the results section. BASIC METABOLIC PANEL Routine 08/22/2018 6:10 AM Results for this APPLICATIONS SPECIALIST procedure are in the results section. POC GLUCOSE Routine 08/21/2018 7:31 PM Results for this APPLICATIONS SPECIALIST procedure are in the results section. URINALYSIS SCREEN AND Routine 08/21/2018 4:00 PM Results for this MICROSCOPY, WITH REFLEX APPLICATIONS SPECIALIST procedure are in TO CULTURE the results section. URINE CULTURE Routine 08/21/2018 4:00 PM Results for this APPLICATIONS SPECIALIST procedure are in the results section. HEPATITIS B SURFACE Routine 08/21/2018 2:21 PM Results for this ANTIGEN APPLICATIONS SPECIALIST procedure are in the results section. HEPATITIS B CORE Routine 08/21/2018 2:21 PM Results for this ANTIBODY TOTAL APPLICATIONS SPECIALIST procedure are in the results section. HEPATITIS B SURFACE AB, Routine 08/21/2018 2:21 PM Results for this QUANTITATIVE APPLICATIONS SPECIALIST procedure are in the results section. VENOUS BLOOD GAS Routine 08/21/2018 1:16 PM Results for this APPLICATIONS SPECIALIST procedure are in the results section. POC GLUCOSE Routine 08/21/2018 12:32 PM Results for this APPLICATIONS SPECIALIST procedure are in the results section. HEMOGLOBIN & HEMATOCRIT Routine 08/21/2018 12:15 PM Results for this APPLICATIONS SPECIALIST procedure are in the results section. POC GLUCOSE Routine 08/21/2018 8:43 AM Results for this APPLICATIONS SPECIALIST procedure are in the results section. HEMODIALYSIS Routine 08/21/2018 8:40 AM APPLICATIONS SPECIALIST HC COMPLETE BLD COUNT Routine 08/21/2018 5:50 AM Results for this W/AUTO DIFF APPLICATIONS SPECIALIST procedure are in the results section. ESTIMATED GFR Routine 08/21/2018 4:00 AM Results for this APPLICATIONS SPECIALIST procedure are in the results section. IONIZED CALCIUM Routine 08/21/2018 4:00 AM Results for this APPLICATIONS SPECIALIST procedure are in the results section. PHOSPHORUS LEVEL Routine 08/21/2018 4:00 AM Results for this APPLICATIONS SPECIALIST procedure are in the results section. MAGNESIUM LEVEL Routine 08/21/2018 4:00 AM Results for this APPLICATIONS SPECIALIST procedure are in the results section. BASIC METABOLIC PANEL Routine 08/21/2018 4:00 AM Results for this APPLICATIONS SPECIALIST procedure are in the results section. POC GLUCOSE Routine 08/21/2018 1:04 AM Results for this APPLICATIONS SPECIALIST procedure are in the results section. HEPATITIS B SURFACE Routine 08/20/2018 8:34 PM Results for this ANTIGEN APPLICATIONS SPECIALIST procedure are in the results section. POC GLUCOSE Routine 08/20/2018 4:16 PM Results for this APPLICATIONS SPECIALIST procedure are in the results section. HEMODIALYSIS Routine 08/20/2018 1:20 PM APPLICATIONS SPECIALIST POC GLUCOSE Routine 08/20/2018 12:06 PM Results for this APPLICATIONS SPECIALIST procedure are in the results section. POC GLUCOSE Routine 08/20/2018 9:59 AM Results for this APPLICATIONS SPECIALIST procedure are in the results section. IR TUNNELED DIALYSIS Routine 08/20/2018 9:52 AM Results for this CATHETER PLACEMENT APPLICATIONS SPECIALIST procedure are in the results section. POC GLUCOSE Routine 08/20/2018 8:15 AM Results for this APPLICATIONS SPECIALIST procedure are in the results section. HC COMPLETE BLD COUNT Routine 08/20/2018 4:30 AM Results for this W/AUTO DIFF APPLICATIONS SPECIALIST procedure are in the results section. ESTIMATED GFR Routine 08/20/2018 4:00 AM Results for this APPLICATIONS SPECIALIST procedure are in the results section. IONIZED CALCIUM Routine 08/20/2018 4:00 AM Results for this APPLICATIONS SPECIALIST procedure are in the results section. PHOSPHORUS LEVEL Routine 08/20/2018 4:00 AM Results for this APPLICATIONS SPECIALIST procedure are in the results section. MAGNESIUM LEVEL Routine 08/20/2018 4:00 AM Results for this APPLICATIONS SPECIALIST procedure are in the results section. BASIC METABOLIC PANEL Routine 08/20/2018 4:00 AM Results for this APPLICATIONS SPECIALIST procedure are in the results section. POC GLUCOSE Routine 08/19/2018 9:17 PM Results for this APPLICATIONS SPECIALIST procedure are in the results section. POTASSIUM LEVEL Routine 08/19/2018 6:47 PM Results for this APPLICATIONS SPECIALIST procedure are in the results section. MRI LUMBAR SPINE WO Routine 08/19/2018 3:48 PM Results for this CONTRAST APPLICATIONS SPECIALIST procedure are in the results section. XR CHEST 1 VW PORTABLE STAT 08/19/2018 11:46 AM Results for this APPLICATIONS SPECIALIST procedure are in the results section. FK506 TACROLIMUS LEVEL, Routine 08/19/2018 8:49 AM Results for this RANDOM APPLICATIONS SPECIALIST procedure are in the results section. ESTIMATED GFR Routine 08/19/2018 8:49 AM Results for this APPLICATIONS SPECIALIST procedure are in the results section. BILIRUBIN DIRECT Routine 08/19/2018 8:49 AM Results for this APPLICATIONS SPECIALIST procedure are in the results section. HC COMPLETE BLD COUNT Routine 08/19/2018 8:49 AM Results for this W/AUTO DIFF APPLICATIONS SPECIALIST procedure are in the results section. ANTI XA, UNFRACTIONATED Routine 08/19/2018 8:49 AM Results for this APPLICATIONS SPECIALIST procedure are in the results section. PROTHROMBIN TIME WITH Routine 08/19/2018 8:49 AM Results for this INR APPLICATIONS SPECIALIST procedure are in the results section. PHOSPHORUS LEVEL Routine 08/19/2018 8:49 AM Results for this APPLICATIONS SPECIALIST procedure are in the results section. MAGNESIUM LEVEL Routine 08/19/2018 8:49 AM Results for this APPLICATIONS SPECIALIST procedure are in the results section. COMPREHENSIVE METABOLIC Routine 08/19/2018 8:49 AM Results for this PANEL APPLICATIONS SPECIALIST procedure are in the results section. URIC ACID LEVEL Routine 08/19/2018 8:49 AM Results for this APPLICATIONS SPECIALIST procedure are in the results section. OSMOLALITY, SERUM Routine 08/19/2018 8:48 AM Results for this APPLICATIONS SPECIALIST procedure are in the results section. LOREN-SHARP VIRUS Routine 08/19/2018 8:34 AM Results for this ANTIBODY TEST APPLICATIONS SPECIALIST procedure are in the results section. CREATININE LEVEL, Routine 08/19/2018 8:31 AM Results for this URINE, RANDOM APPLICATIONS SPECIALIST procedure are in the results section. SODIUM LEVEL, URINE, Routine 08/19/2018 8:31 AM Results for this RANDOM APPLICATIONS SPECIALIST procedure are in the results section. PREPARE RBC Timed 08/19/2018 8:20 AM Results for this APPLICATIONS SPECIALIST procedure are in the results section. TYPE AND SCREEN Routine 08/19/2018 8:20 AM Results for this APPLICATIONS SPECIALIST procedure are in the results section. VENOUS BLOOD GAS STAT 08/19/2018 8:20 AM Results for this APPLICATIONS SPECIALIST procedure are in the results section. ECG 12-LEAD STAT 08/19/2018 8:14 AM Results for this APPLICATIONS SPECIALIST procedure are in the results section. LACTIC ACID LEVEL STAT 08/19/2018 7:15 AM Results for this APPLICATIONS SPECIALIST procedure are in the results section. HEMOGLOBIN A1C Routine 08/19/2018 3:00 AM Results for this APPLICATIONS SPECIALIST procedure are in the results section. SEDIMENTATION RATE Timed 08/19/2018 3:00 AM Results for this APPLICATIONS SPECIALIST procedure are in the results section. BK VIRUS BY PCR Timed 08/19/2018 3:00 AM Results for this APPLICATIONS SPECIALIST procedure are in the results section. BLOOD CULTURE, AEROBIC Timed 08/19/2018 3:00 AM Results for this & ANAEROBIC APPLICATIONS SPECIALIST procedure are in the results section. ESTIMATED GFR Timed 08/19/2018 1:00 AM Results for this APPLICATIONS SPECIALIST procedure are in the results section. C-REACTIVE PROTEIN Timed 08/19/2018 1:00 AM Results for this APPLICATIONS SPECIALIST procedure are in the results section. VITAMIN B12 LEVEL Timed 08/19/2018 1:00 AM Results for this APPLICATIONS SPECIALIST procedure are in the results section. TOTAL IRON BINDING Timed 08/19/2018 1:00 AM Results for this CAPACITY APPLICATIONS SPECIALIST procedure are in the results section. FOLATE LEVEL Timed 08/19/2018 1:00 AM Results for this APPLICATIONS SPECIALIST procedure are in the results section. FERRITIN LEVEL Timed 08/19/2018 1:00 AM Results for this APPLICATIONS SPECIALIST procedure are in the results section. HEPATIC FUNCTION PANEL Timed 08/19/2018 1:00 AM Results for this APPLICATIONS SPECIALIST procedure are in the results section. BASIC METABOLIC PANEL Timed 08/19/2018 1:00 AM Results for this APPLICATIONS SPECIALIST procedure are in the results section. US RENAL TRANSPLANT STAT 08/19/2018 12:47 AM Results for this DOPPLER APPLICATIONS SPECIALIST procedure are in the results section. CT LOWER EXTREMITY WO STAT 08/18/2018 10:59 PM Results for this CONTRAST RIGHT APPLICATIONS SPECIALIST procedure are in the results section. XR PELVIS 3+ VW STAT 08/18/2018 8:22 PM Results for this APPLICATIONS SPECIALIST procedure are in the results section. XR FEMUR 2 VW RIGHT STAT 08/18/2018 8:22 PM Results for this APPLICATIONS SPECIALIST procedure are in the results section. ESTIMATED GFR STAT 08/18/2018 7:42 PM Results for this APPLICATIONS SPECIALIST procedure are in the results section. BASIC METABOLIC PANEL STAT 08/18/2018 7:42 PM Results for this APPLICATIONS SPECIALIST procedure are in the results section. PARTIAL THROMBOPLASTIN STAT 08/18/2018 7:42 PM Results for this TIME (PTT) APPLICATIONS SPECIALIST procedure are in the results section. PROTHROMBIN TIME WITH STAT 08/18/2018 7:42 PM Results for this INR APPLICATIONS SPECIALIST procedure are in the results section. HC COMPLETE BLD COUNT STAT 08/18/2018 7:42 PM Results for this W/AUTO DIFF APPLICATIONS SPECIALIST procedure are in the results section. COMPREHENSIVE METABOLIC Routine 05/24/2018 2:37 PM Serum potassium Results for this PANEL CDT elevated procedure are in Elevated serum the results creatinine section. after 04/05/2018 Results Cv invasive peripheral vascular procedure (02/13/2019 4:03 PM CDT) Specimen Procedure Note Ainsley Bowman MD - 03/06/2019 9:22 AM CDT Estimated GFR (02/13/2019 11:53 AM CDT)Only the most recent of9 resultswithin the time period is included. Pathologist [facility] Estimated GFR 15 (A) mL/min/1.73 [facility] Comment: HOSPITAL CatergoryUnitsInterpretation G1 >=90 Normal or high G2 60-89Mildly decreased B4e15-33Bkumne to moderately decreased N4a15-27Coduvaopda to severely decreased G4 15-29Severely decreased G5 <15Kidney failure The eGFR was calculated using the Chronic Kidney Disease Epidemiology Collaboration (CKD-EPI) equation. Interpretation is based on recommendations of the National Kidney Foundation-Kidney Disease Outcomes Quality Initiative (NKF-KDOQI) published in 2014. Specimen Blood Performing Organization Address City/State/Zipcode Phone Number [facility] DEPARTMENT OF PATHOLOGY AND [address] [place] [address] GENOMIC MEDICINE [address] [address] POC panel (02/13/2019 11:53 AM CDT) POC sodium 136 135 - 148 [facility] mmol/L [facility] POC potassium 5.0 3.5 - 5.0 [facility] mmol/L [facility] POC chloride 103 99 - 109 mmol/L [facility] POC CO2 22 (L) 24 - 31 mmol/L [facility] POC glucose 98 65 - 99 mg/dL [facility] POC BUN 36 (H) 8 - 24 mg/dL [facility] POC creatinine 4.3 (H) 0.7 - 1.2 mg/dl [facility] POC hematocrit 37 (L) 41 - 51 % [facility] POC anion gap 17 8 - 20 mmol/L [facility] Comment: HOSPITAL Meter ID: [id number] Art [employer] Certified Supervisor: John Bunn Specimen Performing Organization Address City/State/Zipcode Phone Number [facility] DEPARTMENT OF PATHOLOGY AND [address] [place] [phone] [place] [address] Smear review (02/13/2019 11:45 AM CDT) Pathologist [facility] Platelet slide review Yeni adequate [facility] Anisocytosis Moderate [facility] Polychromasia Moderate [facility] Specimen Performing Organization Address City/State/[facility] Phone Number [facility] DEPARTMENT OF PATHOLOGY AND [address] [place] [address] CBC with platelet and differential (02/13/2019 11:45 AM CDT)Only the most recent of8 resultswithin the time period is included. WBC 6.40 4.50 - 11.00 [facility] k/uL [facility] RBC 3.34 (L) 4.40 - 6.00 [facility] m/[facility] HGB 10.8 (L) 14.0 - 18.0 [facility] g/dL [facility] HCT 36.1 (L) 41.0 - 51.0 % [facility] MCV 108.1 (H) 82.0 - 100.0 [facility] MCH 32.3 27.0 - 34.0 pg [facility] MCHC 29.9 (L) 31.0 - 37.0 [facility] g/dL [facility] RDW - SD 78.9 (H) 37.0 - 55.0 fL [facility] MPV 9.7 8.8 - 13.2 fL [facility] Platelet count 259 150 - 400 k/uL [facility] Nucleated RBC 0.00 /100 WBC [facility] Neutrophils 48.9 39.0 - 69.0 % [facility] Lymphocytes 32.3 25.0 - 45.0 % [facility] Monocytes 12.7 (H) 0.0 - 10.0 % [facility] Eosinophils 4.4 0.0 - 5.0 % [facility] Basophils 0.9 0.0 - 1.0 % [facility] Immature granulocytes 0.8Comment: 0.0 - 1.0 % [facility] "Immature HOSPITAL granulocytes" (promyelocytes , myelocytes, metamyelocytes ) Specimen Blood Performing Organization Address City/State/Zipcode Phone Number [facility] DEPARTMENT OF PATHOLOGY AND [address] [place] [address] GENOMIC MEDICINE [facility] [address] [place] [address] CTA Chest W Wo Contrast (12/31/2018 11:02 AM CDT) Specimen Narrative Performed At EXAMINATION:CT ANGIOGRAM CHEST W WO CONTRAST [facility] CLINICAL HISTORY:N18.6 End stage renal disease, arterial inflow s p angioplasty of R Dilma AVF TECHNIQUE: Multi-detector computed axial tomography (CAT) of the chest was performed with IV iodinated contrast according to angiography protocol. 3-D volume rendered CT reconstructions of the vasculature were created on a postprocessing workstation at the acquisition scanner under concurrent supervision, archived, and interpreted. Sagittal and coronal computerized reformatted images of the body were also created at the workstation and archived for review. DOSE REDUCTION: CT imaging was performed with iterative reconstruction technique and/or automated exposure control to reduce radiation dose. COMPARISON:None available at this time. IMPRESSION: 1.Aortic arch great vessels are well opacified and widely patent, and there is no luminal narrowing of the imaged bilateral subclavian, axillary, or proximal brachial arteries. FINDINGS: Aorta is nonaneurysmal, without dissection, and there is mild atherosclerotic disease. Aortic arch great vessels are well opacified and widely patent. There is no luminal stenosis, and the imaged bilateral subclavian, axillary, and proximal brachial arteries are also well opacified and widely patent. Pulmonary artery is normal in diameter, and there is no central filling defect. SVC is patent. A right internal jugular dialysis catheter terminates near the cavoatrial junction. Heart is normal in size. Severe coronary artery calcifications are present. No pericardial effusion. No mediastinal mass or thoracic lymphadenopathy. Foci of linear subsegmental atelectasis and/or scarring in the right lower lobe. Mild dependent lower lobe subsegmental atelectasis. No pleural effusion. Tiny nodular density right middle lobe is very likely benign and postinflammatory. A tiny focus of endobronchial impaction is also seen within the right middle lobe. Chronic appearing right-sided rib fractures. Bones are demineralized. Moderate wedge deformity of L1. Mild gynecomastia. Thank you for allowing us to participate in the care of your patient. [facility]-[id number] Procedure Note Interface, Radiology Results Incoming - 12/31/2018 12:38 PM CDT EXAMINATION: CT ANGIOGRAM CHEST W WO CONTRAST CLINICAL HISTORY: N18.6 End stage renal disease, arterial inflow s p angioplasty of R Dilma AVF TECHNIQUE: Multi-detector computed axial tomography (CAT) of the chest was performed with IV iodinated contrast according to angiography protocol. 3-D volume rendered CT reconstructions of the vasculature were created on a postprocessing workstation at the acquisition scanner under concurrent supervision, archived, and interpreted. Sagittal and coronal computerized reformatted images of the body were also created at the workstation and archived for review. DOSE REDUCTION: CT imaging was performed with iterative reconstruction technique and/or automated exposure control to reduce radiation dose. COMPARISON: None available at this time. IMPRESSION: 1. Aortic arch great vessels are well opacified and widely patent, and there is no luminal narrowing of the imaged bilateral subclavian, axillary, or proximal brachial arteries. FINDINGS: Aorta is nonaneurysmal, without dissection, and there is mild atherosclerotic disease. Aortic arch great vessels are well opacified and widely patent. There is no luminal stenosis, and the imaged bilateral subclavian, axillary, and proximal brachial arteries are also well opacified and widely patent. Pulmonary artery is normal in diameter, and there is no central filling defect. SVC is patent. A right internal jugular dialysis catheter terminates near the cavoatrial junction. Heart is normal in size. Severe coronary artery calcifications are present. No pericardial effusion. No mediastinal mass or thoracic lymphadenopathy. Foci of linear subsegmental atelectasis and/or scarring in the right lower lobe. Mild dependent lower lobe subsegmental atelectasis. No pleural effusion. Tiny nodular density right middle lobe is very likely benign and postinflammatory. A tiny focus of endobronchial impaction is also seen within the right middle lobe. Chronic appearing right-sided rib fractures. Bones are demineralized. Moderate wedge deformity of L1. Mild gynecomastia. Thank you for allowing us to participate in the care of your patient. [facility]-[id number] Performing Organization Address City/State/Zipcode Phone Number [facility] [address] [place] [address] duplex hemodialysis avg avf access (12/24/2018 2:36 PM CDT)Only the most recent of2 resultswithin the time period is included. Specimen Narrative Performed At [facility] AV Graft - Fistula Report [address] [place], [place] Pat.Name:ANNIE CLARK.ID:[id number] .Date: 12/24/2018 Refer.MD:DEEDEE AVERY MD Exam Time: 1:56:00 PMStudy Type:AV Graft - Fistula Height:69inDOBAge: 1965,53Y Sex: MALESonogrphr: Emilyaliiro Mak RVT CPT - 4: 62532 Echo Event ID:[id number] Order ID:[id number] Reason for Study:Follow up balloon angioplasty right radiocephalic AVF.ESRD. History / Clinical:Severe mulnutrition, H/o liver transplant 1989, H/o kidney transplant x 2 (2000 Race:C SUMMARY: DUPLEX SCAN OBSERVATIONS: RIGHT:The radiocephalic AVF is well visualized.Disturbed, pulsatile colorflow and Doppler signals are noted in the feeding radial artery, through the AVF anastomosis and into the draining cephalic vein.Increased colorflow disturbance is noted through the anastomosis and central subclavian vein.There is a high bifurcation of the radial and ulnar arteries at the level of the axilla. It appears that the AV fistula is draining through the basilic vein in the upper arm. VOLUME FLOW:Right brachial artery 92 ml/min Previous 11/09/2018 129 ml/min PRELIMINARY FINDINGS: 1.Volume flow rightbrachial artery is 92 ml/min 2.>50% juxta-anastomotic stenosis, rightradiocephalic AVF(ratio 6.0). 3. Approximately 50% stenosis right central subclavian vein (ratio 2.0). 4.Right high bifurcation of the radial and ulnar arteries at the level of the axilla. 5.Right AV fistula appears to be draining through the basilic vein in the upper arm. PHYSICIAN INTERPRETATION: Low volume flow AVF. More than 50% juxta-anastomotic stenosis. High brachial artery bifurcation at axilla. MEASUREMENTS: GRAFT Right Anastomosis Radiocephalic:AV Fistula Anast GTX751 cm/s Right Cephalic Antecubital Fossa Radiocephalic:AV Fistula Cephalic Qnlxxd11 cm/s Right Basilic Dist Up Arm Radiocephalic:AV Fistula Basilic Dist Up27 cm/s Right Cephalic Forearm Mid Radiocephalic:AV Fistula Cephalic Vxijih64 cm/s Right Cephalic Forearm Prox Radiocephalic:AV Fistula Cephalic Lgdpev74 cm/s Right Brachial Prox Radiocephalic:AV Fistula Brachial A Prox81 cm/s Right Axillary V Mid Radiocephalic:AV Fistula Axillary V Mid 11 cm/s Right Basilic Prox Up Arm Radiocephalic:AV Fistula Basilic Prox Up27 cm/s Right Subclavian V Central Radiocephalic:AV Fistula Subclavian V Ce 147 cm/s Right Radial Mid Radiocephalic:AV Fistula Radial A Mid PS99 cm/s Right Subclavian V Mid Radiocephalic:AV Fistula Subclavian V Mi72 cm/s Right Cephalic Forearm Dist Radiocephalic:AV Fistula Cephalic Wtghab24 cm/s Right Radial Prox Radiocephalic:AV Fistula Radial A Prox P82 cm/s Right Basilic Mid Up Arm Radiocephalic:AV Fistula Basilic Mid Up 28 cm/s Signed 02/11/2019 10:53 PM Deedee Avery MD Procedure Note Interface, Radiology Results In - 02/11/2019 10:53 PM CDT [facility] AV Graft - Fistula Report [address] [place] [address] Pat.Name: ANNIE CLARK.ID: [id number] .Date: 12/24/2018 Refer.MD: DEEDEE AVERY MD Exam Time: 1:56:00 PM Study Type:AV Graft - Fistula Height: 69in Age: 9 1965,53Y Sex: MALE Sonogrphr: Emily Mak RVT CPT - 4: 79556 Echo Event ID:[id number] Order ID: [id number] Reason for Study:Follow up balloon angioplasty right radiocephalic AVF. ESRD. History / Clinical:Severe mulnutrition, H/o liver transplant 1989, H/o kidney transplant x 2 (2000 Race: C SUMMARY: DUPLEX SCAN OBSERVATIONS: RIGHT: The radiocephalic AVF is well visualized. Disturbed, pulsatile colorflow and Doppler signals are noted in the feeding radial artery, through the AVF anastomosis and into the draining cephalic vein. Increased colorflow disturbance is noted through the anastomosis and central subclavian vein. There is a high bifurcation of the radial and ulnar arteries at the level of the axilla. It appears that the AV fistula is draining through the basilic vein in the upper arm. VOLUME FLOW: Right brachial artery 92 ml/min Previous 11/09/2018 129 ml/min PRELIMINARY FINDINGS: 1. Volume flow right brachial artery is 92 ml/min 2. >50% juxta-anastomotic stenosis, right radiocephalic AVF(ratio 6.0). 3. Approximately 50% stenosis right central subclavian vein (ratio 2.0). 4. Right high bifurcation of the radial and ulnar arteries at the level of the axilla. 5. Right AV fistula appears to be draining through the basilic vein in the upper arm. PHYSICIAN INTERPRETATION: Low volume flow AVF. More than 50% juxta-anastomotic stenosis. High brachial artery bifurcation at axilla. MEASUREMENTS: GRAFT Right Anastomosis Radiocephalic:AV Fistula Anast PSV 596 cm/s Right Cephalic Antecubital Fossa Radiocephalic:AV Fistula Cephalic Antecu 68 cm/s Right Basilic Dist Up Arm Radiocephalic:AV Fistula Basilic Dist Up 27 cm/s Right Cephalic Forearm Mid Radiocephalic:AV Fistula Cephalic Forear 40 cm/s Right Cephalic Forearm Prox Radiocephalic:AV Fistula Cephalic Forear 50 cm/s Right Brachial Prox Radiocephalic:AV Fistula Brachial A Prox 81 cm/s Right Axillary V Mid Radiocephalic:AV Fistula Axillary V Mid 11 cm/s Right Basilic Prox Up Arm Radiocephalic:AV Fistula Basilic Prox Up 27 cm/s Right Subclavian V Central Radiocephalic:AV Fistula Subclavian V Ce 147 cm/s Right Radial Mid Radiocephalic:AV Fistula Radial A Mid PS 99 cm/s Right Subclavian V Mid Radiocephalic:AV Fistula Subclavian V Mi 72 cm/s Right Cephalic Forearm Dist Radiocephalic:AV Fistula Cephalic Forear 75 cm/s Right Radial Prox Radiocephalic:AV Fistula Radial A Prox P 82 cm/s Right Basilic Mid Up Arm Radiocephalic:AV Fistula Basilic Mid Up 28 cm/s Signed 02/11/2019 10:53 PM Deedee Avery MD Performing Organization Address City/[facility]/Zipcode Phone Number [facility] [address] [place] [address] POC glucose (12/07/2018 11:33 AM APPLICATIONS SPECIALIST)Only the most recent of22 resultswithin the time period is included. POC glucose 97 65 - 99 mg/dL [facility] Comment: [facility] Notified RN Meter ID: [id number] Art Therapy Certified Supervisor: Cesarjanuary Specimen Performing Organization Address City/[facility]/Zipcode Phone Number [facility] DEPARTMENT OF PATHOLOGY AND [address] [place] [address] GENOMIC MEDIC[address] [address] [place] < 1 Hour (12/07/2018 11:10 AM APPLICATIONS SPECIALIST) Specimen Narrative Performed At EXAMINATION:[place] <1 HOUR [facility] C-arm fluoroscopy was requested in OR. Location: [place] [facility] OR 1 Procedure: Right Upper Extremity Fistulogram W/ Angioplasty Start: 1045 End: 1110 Fluoro Time: 5:03 min Dose: 5.05 mGy Tech: SW IMPRESSION: Separate operative report will be issued by the physician performing the procedure. [id number] Procedure Note Interface, Radiology Results Incoming - 12/10/2018 5:46 PM APPLICATIONS SPECIALIST EXAMINATION: [place] < 1 HOUR C-arm fluoroscopy was requested in OR. Location: [place] [facility] OR 1 Procedure: Right Upper Extremity Fistulogram W/ Angioplasty Start: 1045 End: 1110 Fluoro Time: 5:03 min Dose: 5.05 mGy Tech: SW IMPRESSION: Separate operative report will be issued by the physician performing the procedure. [id number] Performing Organization Address City/[facility]/Zipcode Phone Number [facility] [address] [place] [address] POC panel 4 (12/07/2018 8:43 AM APPLICATIONS SPECIALIST)Only the most recent of2 resultswithin the time period is included. POC sodium 135 135 - 148 [facility] mmol/L [facility] POC potassium 5.1 (H) 3.5 - 5.0 [facility] mmol/L [facility] POC hematocrit 39 (L) 41 - 51 % [facility] Comment: HOSPITAL Meter ID: [id number] Art Therapy Certified Supervisor: Benedicto Ellsworth POC glucose 122 (H) 65 - 99 mg/dL [facility] Specimen Performing Organization Address [facility] Phone Number [facility] DEPARTMENT OF PATHOLOGY AND [address] [place] [address] [place] [address] Pv vein mapping upper extremity (08/24/2018 12:30 PM APPLICATIONS SPECIALIST) Specimen Narrative Performed At [facility] Upper Extremity Vein Mapping Report [address] [facility] [address], [place] [address] Pat.Name:ANNIE CLARK Pat.ID:[id number] St.Date: 08/24/2018Refer.MD:NA OCONNOR MD Exam Time: 11:24:00 AM Study Type:UE Vein Mapping Height:69inWeight: 105lb BSA: 1.57 m2 DOBAge:1965,53Y Sex: MALESonogrphr: Светлана Kumari, RVT Pat. Stat.:Inpatient Room:[address] TapeVol: YM, CPT - 4: G0365 Echo Event ID:[id number] Order ID:[id number] Reason for Study:Vein mapping for dialysis access. [...] Radiology Results In - 08/24/2018 11:07 PM APPLICATIONS SPECIALIST [facility] Upper Extremity Vein Mapping Report [address] [place] [address] Pat.Name: ANNIE CLARK Pat.ID: [id number] .Date: 08/24/2018 Refer.MD: NA OCONNOR MD Exam Time: 11:24:00 AM Study Type:UE Vein Mapping Height: 69in Weight: 105lb BSA: 1.57 m2 Age: 9 1965,53Y Sex: MALE Sonogrphr: Светлана Kumari RVT Pat. Stat.:Inpatient Room: [address] Tape Vol: YM, CPT - 4: G0365 Echo Event ID:[id number] Order ID: [id number] Reason for Study:Vein mapping for dialysis access. [...] Wall MD, RPVI Performing Organization Address City/[facility]/Zipcode Phone Number [facility] [address] [place] [address] FK506 level (08/24/2018 5:30 AM APPLICATIONS SPECIALIST)Only the most recent of4 resultswithin the time period is included. FK506 level 12.1 ng/mL [facility] Comment: HOSPITAL Therapeutic range 5-20 ng/mL for 12 hour trough. The range varies depending on the organ transplanted, time after transplantation and co-administered immunosuppressant therapies. Please use clinical judgment to interpret test result. Test performed using [employer] chemiluminescent microparticle immunoassay for Tacrolimus on the [employer] i System. Specimen Blood Performing Organization Address [facility] Phone Number [facility] DEPARTMENT OF PATHOLOGY AND [address] [place] [phone] [place] [phone] Phosphorus level (08/24/2018 4:00 AM APPLICATIONS SPECIALIST)Only the most recent of6 resultswithin the time period is included. [facility] Phosphorus 2.7 2.4 - 4.5 mg/dL [facility] Specimen Plasma specimen Performing Organization Address [facility] Phone Number [facility] DEPARTMENT OF PATHOLOGY AND [address] [place] [phone] [place] [phone] Magnesium level (08/24/2018 4:00 AM APPLICATIONS SPECIALIST)Only the most recent of6 resultswithin the time period is included. [facility] Magnesium 1.9 1.6 - 2.6 mg/dL [facility] Specimen Plasma specimen Performing Organization Address [facility] Phone Number [facility] DEPARTMENT OF PATHOLOGY AND [address] [place] [phone] Basic metabolic panel (08/24/2018 4:00 AM APPLICATIONS SPECIALIST)Only the most recent of7 resultswithin the time period is included. [facility] Sodium 133 (L) 135 - 148 mEq/L [facility] Potassium 3.1 (L) 3.5 - 5.0 mEq/L [facility] Chloride 96 (L) 98 - 112 mEq/L [facility] CO2 23 (L) 24 - 31 mEq/L [facility] Anion gap 14@ANIO 7 - 15 mEq/L [facility] BUN 37 (H) 6 - 20 mg/dL [facility] Creatinine 3.51 (H)Comment: 0.70 - 1.20 [facility] Called RN anuja; mg/dL HOSPITAL pt is kidney patient, results expected. Glucose 204 (H) 65 - 99 mg/dL [facility] Calcium 9.2 8.3 - 10.2 mg/dL [facility] Specimen Plasma specimen Performing Organization Address City/[facility] Phone Number [facility] DEPARTMENT OF PATHOLOGY AND [address] [place] [address] Venous blood gas (08/22/2018 3:20 PM APPLICATIONS SPECIALIST)Only the most recent of3 resultswithin the time period is included. pH, venous 7.40 7.32 - 7.42 [facility] pCO2, venous 46 45 - 51 mmHg [facility] pO2, venous 38 25 - 40 mmHg [facility] Base excess, venous 3 (H) -2 - 2 meq/L [facility] O2 saturation, 74 (H) 40 - 70 % [facility] Bicarbonate, venous 27.3 21.0 - 28.0 [facility] mmol/L [facility] Specimen Blood Performing Organization Address City/[facility] Phone Number [facility] DEPARTMENT OF PATHOLOGY AND [address] [place] [address] Pv duplex arterial lower extremity (08/22/2018 12:15 PM APPLICATIONS SPECIALIST) Specimen Narrative Performed At [facility] Vascular Ultrasound Laboratory Lower Extremity Arterial Duplex Report [address] [place] [address] [address], [place] [address] Pat.Name:ANNIE CLARK Shannan.ID:[id number] .Date: 08/22/2018Refer.MD:RAMA KOLB MD Exam Time: 10:45:00 AM Study Type:LE Arterial Height:69inWeight: 105lb BSA: 1.57 m2 DOBAge:1965,53Y Sex: MALE Sonogrphr: Nicole Michael, RDCS, RVT Pat. Stat.:Inpatient Room:[facility] A TapeVol: ED, CPT - 4: 19588 Echo Event ID:[id number] Order ID:[id number] Reason for Study:Leg pain History / Clinical:Severe [...] ANKLE/BRACHIAL INDEX: RIGHTLEFT Brachial Artery Pressure 191 [id number] mmHg DP>255 mmHg>255 mmHg PT>255 mmHg>255 mmHg CESAR DPNon-compressible Non-compressible CESAR PTNon-compressible Non-compressible TOE/BRACHIAL INDEX: Great Toe55 mmEc356 mmHg TBI0.29 0.77 PRELIMINARY FINDINGS: 1. Monophasic [...] Right MARY Dist MARY Dist PSV14.9 cm/s CROSSING TENDER Mid CROSSING TENDER Mid PSV 20 cm/s Right Profunda Profunda PSV19 cm/s SFA Right SFA Prox0 mmHg SFA Prox SFA Prox PSV17 cm/s Right MANAGER LABORATORY Prox MANAGER LABORATORY Prox PSV20 cm/s Right MANAGER LABORATORY Dist MANAGER LABORATORY Dist PSV78 cm/s Right SFA Prox 1 SFA Prox 1 PSV34 cm/s Right SFA Mid SFA Mid PSV 21 cm/s Right SFA Dist SFA Dist PSV24 cm/s Right Pop Prox Pop Prox PSV17 cm/s Right Pop Dist Pop Dist PSV16 cm/s Right CROSSING TENDER Prox CROSSING TENDER Prox PSV26 cm/s Right CROSSING TENDER Mid 1 CROSSING TENDER Mid 1 PSV 70 cm/s Right CROSSING TENDER Distal CROSSING TENDER Distal PSV46 cm/s Right Peroneal Prox Peroneal Prox P11 cm/s Right Peroneal Dist Peroneal Dist P12 cm/s Right MARY Prox MARY Prox PSV14 cm/s Right MARY Mid MARY Mid PSV 12 cm/s Right MARY Distal MARY Distal PSV15 cm/s Left MANAGER LABORATORY Prox MANAGER LABORATORY Prox PSV83 cm/s Left MANAGER LABORATORY Dist MANAGER LABORATORY Dist PSV90 cm/s Left Profunda Profunda PSV94 cm/s Left SFA Prox SFA Prox PSV60 cm/s Left SFA Mid SFA Mid PSV 79 cm/s Left SFA Dist SFA Dist PSV53 cm/s Left Pop Prox Pop Prox PSV41 cm/s Left Pop Dist Pop Dist PSV52 cm/s Left CROSSING TENDER Prox CROSSING TENDER Prox PSV52 cm/s Left CROSSING TENDER Mid CROSSING TENDER Mid PSV 68 cm/s Left CROSSING TENDER Distal CROSSING TENDER Distal PSV61 cm/s Left Peroneal Dist Peroneal Dist P28 cm/s Left MARY Prox MARY Prox PSV55 cm/s Left MARY Distal MARY Distal PSV69 cm/s Signed 08/22/2018 05:18 PM Ministerio Wall MD, RPVI Procedure Note Interface, Radiology Results In - 08/22/2018 5:19 PM APPLICATIONS SPECIALIST Vascular Ultrasound Laboratory Lower Extremity Arterial Duplex Report [address] [place] [address] Pat.Name: ANNIE CLARK Shannan.ID: [id number] .Date: 08/22/2018 Refer.MD: RAMA KOLB MD Exam Time: 10:45:00 AM Study Type:LE Arterial Height: 69in Weight: 105lb BSA: 1.57 m2 Age: 9 1965,53Y Sex: MALE Sonogrphr: Nicole Michael RDCS, RVT Pat. Stat.:Inpatient Room: [address] Vol: ED, CPT - 4: 95973 Echo Event ID:[id number] Order ID: [id number] Reason for Study:Leg pain History / Clinical:Severe [...] MEASUREMENTS: DOPPLER Left MARY Dist MARY Dist PSV 68.7 cm/s Left MARY Mid MARY Mid PSV 64 cm/s Peroneal Mid Peroneal Mid PS 38 cm/s Peroneal Mid PS 9 cm/s Peroneal Prox Peroneal Prox P 30 cm/s Right MARY Dist MARY Dist PSV 14.9 cm/s CROSSING TENDER Mid CROSSING TENDER Mid PSV 20 cm/s Right Profunda Profunda PSV 19 cm/s SFA Right SFA Prox 0 mmHg SFA Prox SFA Prox PSV 17 cm/s Right MANAGER LABORATORY Prox MANAGER LABORATORY Prox PSV 20 cm/s Right MANAGER LABORATORY Dist MANAGER LABORATORY Dist PSV 78 cm/s Right SFA Prox 1 SFA Prox 1 PSV 34 cm/s Right SFA Mid SFA Mid PSV 21 cm/s Right SFA Dist SFA Dist PSV 24 cm/s Right Pop Prox Pop Prox PSV 17 cm/s Right Pop Dist Pop Dist PSV 16 cm/s Right CROSSING TENDER Prox CROSSING TENDER Prox PSV 26 cm/s Right CROSSING TENDER Mid 1 CROSSING TENDER Mid 1 PSV 70 cm/s Right CROSSING TENDER Distal CROSSING TENDER Distal PSV 46 cm/s Right Peroneal Prox Peroneal Prox P 11 cm/s Right Peroneal Dist Peroneal Dist P 12 cm/s Right MARY Prox MARY Prox PSV 14 cm/s Right MARY Mid MARY Mid PSV 12 cm/s Right MARY Distal MARY Distal PSV 15 cm/s Left MANAGER LABORATORY Prox MANAGER LABORATORY Prox PSV 83 cm/s Left MANAGER LABORATORY Dist MANAGER LABORATORY Dist PSV 90 cm/s Left Profunda Profunda PSV 94 cm/s Left SFA Prox SFA Prox PSV 60 cm/s Left SFA Mid SFA Mid PSV 79 cm/s Left SFA Dist SFA Dist PSV 53 cm/s Left Pop Prox Pop Prox PSV 41 cm/s Left Pop Dist Pop Dist PSV 52 cm/s Left CROSSING TENDER Prox CROSSING TENDER Prox PSV 52 cm/s Left CROSSING TENDER Mid CROSSING TENDER Mid PSV 68 cm/s Left CROSSING TENDER Distal CROSSING TENDER Distal PSV 61 cm/s Left Peroneal Dist Peroneal Dist P 28 cm/s Left MARY Prox MARY Prox PSV 55 cm/s Left MARY Distal MARY Distal PSV 69 cm/s Signed 08/22/2018 05:18 PM Ministerio Wall MD, RPVI Performing Organization Address City/State/Zipcode Phone Number [facility] [address] [place] [address] Pv duplex venous lower extremity (08/22/2018 10:42 AM APPLICATIONS SPECIALIST) Specimen Narrative Performed At [facility] Vascular Ultrasound Laboratory Lower Extremity Venous Report [address] [place] [address] Pat.Name:ANNIE CLARK.ID:[id number] .Date: 08/22/2018Refer.MD:RAMA KOLB MD Exam Time: 10:02:00 AM Study Type:LE Venous Height:69inWeight: 105lb BSA: 1.57 m2 DOBAge:1965,53Y Sex: MALE Sonogrphr: Nicole Michael, MARTINCS, RVT Pat. Stat.:Inpatient Room:[address] TapeVol: ED, CPT - 4: 15788 Echo Event ID:[id number] Order ID:[id number] Reason for Study:Leg swelling and pain, DVT [...] Radiology Results In - 08/22/2018 2:50 PM [facility] Vascular Ultrasound Laboratory Lower Extremity Venous Report [address] [place] [address] Pat.Name: ANNIE CLARK.ID: [id number] St.Date: 08/22/2018 Refer.MD: RAMA KOLB MD Exam Time: 10:02:00 AM Study Type:LE Venous Height: 69in Weight: 105lb BSA: 1.57 m2 Age: 9 1965,53Y Sex: MALE Sonogrphr: Nicole Michael RDCS, RVT Pat. Stat.:Inpatient Room: [address] Vol: ED, CPT - 4: 31759 Echo Event ID:[id number] Order ID: [id number] Reason for Study:Leg swelling and pain, DVT [...] Ministerio Wall MD, RPVI Performing Organization Address [facility]/Zipcode Phone Number [facility] [address] [place] [address] Occult blood, stool (08/22/2018 7:30 AM APPLICATIONS SPECIALIST) Pathologist [facility] Occult blood, Negative for occult blood. [facility] stool Comment: HOSPITAL Specimen Information Specimen Source: Stool Specimen Site: Nonpreserved Specimen Stool - Nonpreserved Performing Organization Address [facility] Phone Number [facility] DEPARTMENT OF PATHOLOGY AND [address] [place] [address] HIV Ag/Ab combination (08/22/2018 6:10 AM APPLICATIONS SPECIALIST) [facility] HIV Ag/Ab combination Non-reactive Non-reactive [facility] Specimen Serum Performing Organization Address [facility] Phone Number [facility] DEPARTMENT OF PATHOLOGY AND [address] [place], [place] [address] [address] [address] Hepatitis acute panel (08/22/2018 6:10 AM APPLICATIONS SPECIALIST) [facility] Hepatitis A IgM Non-reactive Non-reactive [facility] Hepatitis B core Non-reactive Non-reactive [facility] Hepatitis B surface Non-reactive Non-reactive [facility] Hepatitis C Ab Non-reactive Non-reactive [facility] Specimen Serum Performing Organization Address [facility] Phone Number [facility] DEPARTMENT OF PATHOLOGY AND [address] [place] [address] Reticulocyte count (08/22/2018 6:10 AM APPLICATIONS SPECIALIST) [facility] Retic %, auto 1.3 0.5 - 2.1 % [facility] Retic absolute, auto 0.0306 0.0220 - 0.1260 [facility] Specimen Blood Performing Organization Address [facility] Phone Number [facility] DEPARTMENT OF PATHOLOGY AND [address] [place] [address] [address] LDH (08/22/2018 6:10 AM APPLICATIONS SPECIALIST) LDH 132 87 - 225 U/L [facility] Specimen Plasma specimen Performing Organization Address City/[facility] Phone Number [facility] DEPARTMENT OF PATHOLOGY AND [address] [place] [address] [place] [address] Haptoglobin (08/22/2018 6:10 AM APPLICATIONS SPECIALIST) Haptoglobin 339 (H) 30 - 200 mg/dL [facility] Specimen Plasma specimen Performing Organization Address City/[facility] Phone Number [facility] DEPARTMENT OF PATHOLOGY AND [address] [place] [address] Ionized calcium (08/22/2018 6:10 AM APPLICATIONS SPECIALIST)Only the most recent of3 resultswithin the time period is included. pH 7.48 [facility] Ionized calcium 1.19 1.11 - 1.32 mmol/L [facility] Specimen Plasma specimen Performing Organization Address [facility] Phone Number [facility] DEPARTMENT OF PATHOLOGY AND [address] [place] [address] Urinalysis screen and microscopy, with reflex to culture (08/21/2018 4:00 PM APPLICATIONS SPECIALIST) Specimen site Clean catch [facility] Color, UA Straw [facility] Appearance, UA Clear [facility] Specific gravity, UA 1.009 1.001 - 1.035 [facility] pH, UA 8.0 5.0 - 8.5 [facility] Protein, UA 3+ (A) Negative [facility] Glucose, UA 2+ (A) Negative [facility] Ketones, UA Trace (A) Negative [facility] Bilirubin, UA Negative Negative [facility] Blood, UA Negative Negative [facility] Nitrite, UA Negative Negative [facility] Urobilinogen, UA <2.0 <2.0 [facility] Leukocyte esterase, Negative Negative [facility] Epithelial cells, UA <1 /HPF [facility] WBC, UA 1 0 - 1 /HPF [facility] RBC, UA 1 0 - 5 /HPF [facility] Bacteria, UA None seen None seen [facility] Yeast, UA None seen [facility] Yeast with None seen [facility] pseudohyphae, UA HOSPITAL Hyaline casts, UA 1 /LPF [facility] Specimen Urine Performing Organization Address City/State/Zipcode Phone Number [facility] DEPARTMENT OF PATHOLOGY AND [address] [place] [phone] [place] [address] Urine culture (08/21/2018 4:00 PM APPLICATIONS SPECIALIST) Urine culture SEE COMMENTComment: [facility] Bacteriuria screen HOSPITAL negative. Specimen Performing Organization Address City/[facility]/Zipcode Phone Number [facility] DEPARTMENT OF PATHOLOGY AND [address] [place] [address] Hepatitis B surface Ab, quantitative (08/21/2018 2:21 PM APPLICATIONS SPECIALIST) Pathologist [facility] Hepatitis B surface <3.10 IU/L [facility] REF [facility] Ab Comment: The anti-HBs is less than 10 [...] Cellular and Tissue-Based Products (HCT/P). Performed by [employer], [address] [place] [phone] [email or web address], Hans Hazel MD - Lab. Director Specimen Serum Performing Organization Address City/State/Zipcode Phone Number [facility] [address] [place] [address] [facility] [address] [place] [address] Hepatitis B core antibody total (08/21/2018 2:21 PM APPLICATIONS SPECIALIST) Hepatitis B core Non-reactive Non-reactive [facility] Specimen Blood Performing Organization Address City/[facility]/Zipcode Phone Number [facility] DEPARTMENT OF PATHOLOGY AND [address] [place] [address] Hepatitis B surface antigen (08/21/2018 2:21 PM APPLICATIONS SPECIALIST)Only the most recent of2 resultswithin the time period is included. Hepatitis B surface Non-reactive Non-reactive [facility] Specimen Blood Performing Organization Address City/[facility]/Zipcode Phone Number [facility] DEPARTMENT OF PATHOLOGY AND [address] [place] [address] Hemoglobin & hematocrit (08/21/2018 12:15 PM APPLICATIONS SPECIALIST) HGB 6.5 (LL) 14.0 - 18.0 g/dL [facility] Comment: HOSPITAL HGB results called to and read back by FÁTIMA MCNAIR/ALFRED (name/location) at 12:4608/21/2018 (date/time) by _AK_. HCT 21.1 (L) 41.0 - 51.0 % [facility] Specimen Blood Performing Organization Address City/[facility] Phone Number [facility] DEPARTMENT OF PATHOLOGY AND [address] [place] [address] IR Tunneled Dialysis Catheter Placement (08/20/2018 9:52 AM APPLICATIONS SPECIALIST) Specimen Narrative Performed At Performing Radiologist: XENIA Ag MD Assistants: None. Anesthesia Type: Moderate sedation was administered by the procedure nurse and monitored intraservice [id number] by the procedure physician for 12 minutes. [...] right atrium and is ready for use. [facility]-[id number] Procedure Note [facility], Radiology Results Incoming - 08/20/2018 10:39 AM APPLICATIONS SPECIALIST Performing Radiologist: Sam Ag MD Assistants: None. Anesthesia Type: Moderate sedation was administered by the procedure nurse and monitored intraservice [id number] by the procedure physician for 12 minutes. [...] right atrium and is ready for use. [facility]-[id number] [facility] Organization Address City/State/Zipcode Phone Number [facility] [address] [place] [address] Potassium level (08/19/2018 6:47 PM APPLICATIONS SPECIALIST) Potassium 5.6 (H) 3.5 - 5.0 mEq/L [facility] Specimen Plasma specimen Performing Organization Address City/State/Zipcode Phone Number [facility] DEPARTMENT OF PATHOLOGY AND [address] [place] [address] GENOMIC MEDICINE [facility] [address] [place] [address] MRI Lumbar Spine Wo Contrast (08/19/2018 3:48 PM APPLICATIONS SPECIALIST) Specimen Narrative Performed At EXAMINATION: MRI LUMBAR SPINE [...] Partially visualized urinary bladder is distended. Bilateral [facility] kidneys appear to be atrophic. Partially visualized left iliac fossa renal transplant. IMPRESSION: 1. Mild degenerative disc changes at L5-S1. No significant spinal canal or neural foraminal stenosis at any lumbar spinal level. No compression of neural elements. 2. Chronic anterior wedging of L1 vertebral body. [facility]-[id number] Procedure Note Interface, Radiology Results Incoming - 08/19/2018 5:16 PM APPLICATIONS SPECIALIST EXAMINATION: MRI LUMBAR SPINE WO CONTRAST CLINICAL [...] Partially visualized urinary bladder is distended. Bilateral [facility] kidneys appear to be atrophic. Partially visualized left iliac fossa renal transplant. IMPRESSION: 1. Mild degenerative disc changes at L5-S1. No significant spinal canal or neural foraminal stenosis at any lumbar spinal level. No compression of neural elements. 2. Chronic anterior wedging of L1 vertebral body. [facility]-[id number] Performing Organization Address City/State/Zipcode Phone Number [facility] [address] [place] [address] XR Chest 1 Vw Portable (08/19/2018 11:46 AM APPLICATIONS SPECIALIST) Specimen Narrative Performed At EXAMINATION:XR CHEST 1 VW PORTABLE [facility] CLINICAL H[facility]ORY:evaluate for pneumonia COMPARISON:12/24/2001 IMPRESSION: Heart size is normal. There is no consolidation within the lungs. There is no significant pleural effusion or pneumothorax. Healed right-sided rib fractures and a healed left midclavicular fracture noted. [id number] Procedure Note Interface, Radiology Results Incoming - 08/19/2018 11:53 AM APPLICATIONS SPECIALIST EXAMINATION: XR CHEST 1 VW PORTABLE CLINICAL HISTORY: evaluate for pneumonia COMPARISON: 12/24/2001 IMPRESSION: Heart size is normal. There is no consolidation within the lungs. There is no significant pleural effusion or pneumothorax. Healed right-sided rib fractures and a healed left midclavicular fracture noted. [id number] Performing Organization Address City/[facility]/Zipcode Phone Number [address] [address] Prothrombin time with INR (08/19/2018 8:49 AM APPLICATIONS SPECIALIST)Only the most recent of2 resultswithin the time period is included. Pathologist [facility] Prothrombin time 14.5 11.5 - 14.5 [facility] INR 1.2 [place] Comment: [facility] International Normalized Ratio (INR) is a therapeutic HOSPITAL monitoring tool for patients who are stable on oral anticoagulant therapy. An INR of 2.0-3.0 is suggested for deep vein thrombosis/pulmonary embolism. Specimen Blood Performing Organization Address [facility] Phone Number [facility] DEPARTMENT OF PATHOLOGY AND [address] [place] [address] Anti Xa, unfractionated (08/19/2018 8:49 AM APPLICATIONS SPECIALIST) Pathologist [facility] Anti Xa, <0.10 (L)Comment: 0.30 - 0.70 [place] unfractionated Therapeutic Range: U/mL [facility] 0.30 - 0.70 U/mL HOSPITAL Specimen Blood Performing Organization Address [facility] Phone Number [facility] DEPARTMENT OF PATHOLOGY AND [address] [place] [address] Uric acid level (08/19/2018 8:49 AM APPLICATIONS SPECIALIST) Pathologist [facility] Uric acid 7.7 (H) 3.4 - 7.0 mg/dL [facility] Specimen Plasma specimen Performing Organization Address [facility] Phone Number [facility] DEPARTMENT OF PATHOLOGY AND [address] [place] [address] Bilirubin direct (08/19/2018 8:49 AM APPLICATIONS SPECIALIST) Bilirubin direct <0.2 0.0 - 0.3 mg/dL [facility] Specimen Plasma specimen Performing Organization Address City/[facility]/Zipcode Phone Number [facility] DEPARTMENT OF PATHOLOGY AND [address] [place] [address] [address] Comprehensive metabolic panel (08/19/2018 8:49 AM APPLICATIONS SPECIALIST)Only the most recent of2 resultswithin the time period is included. Sodium 140 135 - 148 [facility] mEq/L [facility] Potassium 5.5 (H) 3.5 - 5.0 [facility] mEq/L [facility] Chloride 105 98 - 112 mEq/L [facility] CO2 16 (L) 24 - 31 mEq/L [facility] Anion gap 19@ANIO (H) 7 - 15 mEq/L [facility] BUN 77 (H) 6 - 20 mg/dL [facility] Creatinine 5.04 (H) 0.70 - 1.20 [facility] mg/dL [facility] Glucose 130 (H) 65 - 99 mg/dL [facility] Calcium 9.1 8.3 - 10.2 [facility] mg/dL [facility] Protein 6.4 6.3 - 8.3 g/dL [facility] Comment: HOSPITAL 4.6-7.0 g/dL 1 week 4.4-7.6 g/dL 7 months-1year5.1-7.3 g/dL 1-2 years5.6-7.5 g/dL >3 years6.0-8.0 g/dL 18-150 6.3-8.3 g/dL Albumin 2.6 (L) 3.5 - 5.0 g/dL [facility] A/G ratio 0.7 0.7 - 3.8 [facility] Alkaline phosphatase 95 40 - 129 U/L [facility] AST 28 10 - 50 U/L [facility] ALT 16 5 - 50 U/L [facility] Total bilirubin <0.2 0.0 - 1.2 [facility] mg/dL HOSPITAL Specimen Plasma specimen Performing Organization Address City/State/Zipcode Phone Number [facility] DEPARTMENT OF PATHOLOGY AND [address] [place] [address] [address] Osmolality, serum (08/19/2018 8:48 AM APPLICATIONS SPECIALIST) Osmolality 315 (H) 275 - 295 mOsm/kg [facility] Specimen Blood Performing Organization Address City/[facility] Phone Number [facility] DEPARTMENT OF PATHOLOGY AND [address] [place] [address] Loren-Sharp virus antibody test (08/19/2018 8:34 AM APPLICATIONS SPECIALIST) EBV Ab to viral capsid Positive (A) Negative [facility] Ag, IgG HOSPITAL EBV Ab to viral capsid Negative Negative [facility] Ag, IgM HOSPITAL EBV Ab to nuclear Ag, Negative Negative [facility] IgG HOSPITAL EBV Ab to early (D) Negative Negative [facility] Ag, IgG HOSPITAL Loren-Sharp virus SEE COMMENT [facility] antibody Comment: HOSPITAL interpretation Infection Status: Results suggest infection with EBV at some time. However, the time of the infection cannot be predicted (ie, recent or past). Specimen Serum Performing Organization Address [facility] Phone Number [facility] DEPARTMENT OF PATHOLOGY AND [address] [place] [address] Sodium level, urine, random (08/19/2018 8:31 AM APPLICATIONS SPECIALIST) Sodium, urine, random 86 mEq/L [facility] Specimen Urine Performing Organization Address City/[facility] Phone Number [facility] DEPARTMENT OF PATHOLOGY AND [address] [place] [address] Creatinine level, urine, random (08/19/2018 8:31 AM APPLICATIONS SPECIALIST) Creatinine, urine, 35 mg/dL [facility] Specimen Urine Performing Organization Address City/[facility] [facility] Phone Number [facility] DEPARTMENT OF PATHOLOGY AND [address] [place] [phone] Prepare RBC, 1 Units (08/19/2018 8:20 AM APPLICATIONS SPECIALIST) Product name Red Blood Cells [facility] -[facility], [facility] Unit number [id number] [facility] Product code [id number] [facility] Dispense status Transfused [facility] Blood expiration [facility] Blood type code 5100 [facility] Blood type O POSITIVE [facility] Specimen Performing Organization Address City/State/Zipcode Phone Number [facility] DEPARTMENT OF PATHOLOGY AND [address] [place] [phone] [address] Type and screen (08/19/2018 8:20 AM APPLICATIONS SPECIALIST) ABO grouping O [facility] Rh type POS [facility] Antibody screen (gel) NEG [facility] Specimen Performing Organization Address City/[facility] Phone Number [facility] DEPARTMENT OF PATHOLOGY AND [address] [place] [phone] [address] ECG 12 lead (08/19/2018 8:14 AM APPLICATIONS SPECIALIST) Ventricular rate 90 [facility] Atrial rate 90 [facility] SC interval 174 [facility] QRSD interval 70 [facility] QT interval 370 [facility] QTC interval 452 [facility] P axis 1 76 [facility] QRS axis 1 76 [facility] MUSE T wave axis 80 [facility] EKG impression Normal sinus [facility] MUSE rhythm-Normal ECG-In automated comparison with ECG of 03-APR-2018 13:32,-Vent. rate has increased BY 30 BPM- Specimen Narrative Performed At Performing Organization Address City/[facility]code Phone Number [facility] MUSE [address] [place] [phone] Lactic acid level (08/19/2018 7:15 AM APPLICATIONS SPECIALIST) Pathologist [facility] Lactic acid 0.9 0.5 - 2.2 mmol/L [facility] Specimen Blood Performing Organization Address City/State/Zipcode Phone Number [facility] DEPARTMENT OF PATHOLOGY AND [address] [place] [address] [address] BK virus by PCR (08/19/2018 3:00 AM APPLICATIONS SPECIALIST) Pathologist [facility] BK virus PCR Not-Detected Not-Detected [facility] copies/mL [facility] BK virus PCR See link below [facility] for PDF Lab HOSPITAL ReportComment: Specimen Performing Organization Address City/State/Zipcode Phone Number [facility] DEPARTMENT OF PATHOLOGY AND [address] [place] [phone] [place] [address] Blood culture, aerobic & anaerobic (08/19/2018 3:00 AM APPLICATIONS SPECIALIST) Blood culture No growth after 5 days of incubation. [facility] isolate Comment: HOSPITAL Specimen Information Specimen Source: Blood Specimen Site: Unspecified Specimen Blood Performing Organization Address City/State/Zipcode Phone Number [facility] DEPARTMENT OF PATHOLOGY AND [address] [place] [phone] Sedimentation rate (08/19/2018 3:00 AM APPLICATIONS SPECIALIST) Pathologist [facility] Sedimentation rate >145 (H) 0 - 10 mm/hr [facility] Specimen Blood Narrative Performed At CO2 results called to and read back by [facility] DEPARTMENT OF PATHOLOGY AND [facility] (name/location) MEDICINE 08/19/201807:21 (date/time) by [facility]. Performing Organization Address City/[facility]/Zipcode Phone Number [facility] DEPARTMENT OF PATHOLOGY AND [address] [place] [address] Hemoglobin A1c (08/19/2018 3:00 AM APPLICATIONS SPECIALIST) Hemoglobin A1C 6.8 (H) 4.0 - 5.6 % [facility] Comment: HOSPITAL HbA1c cutoffs for diagnosing diabetes: 4.0% - 5.6%=normal 5.7% - 6.4%=increased risk for diabetes (prediabetes) >=6.5%=diabetes Goals for glycemic control (ADA 2016) < 7.0%Target for non adults with diabetes. More or less stringent targets may be appropriate for individual patients. <7.5% Target for Children and adolescents with type 1 diabetes. Specimen Blood Performing Organization Address City/State/Zipcode Phone Number [facility] DEPARTMENT OF PATHOLOGY AND [address] [place] [phone] [place] [phone] Total iron binding capacity (08/19/2018 1:00 AM APPLICATIONS SPECIALIST) Iron level 20 (L) 59 - 158 ug/dL [facility] Iron binding capacity 201 200 - 400 ug/dL [facility] % Saturation 10.0 (L) 20.0 - 40.0 % [facility] Specimen Plasma specimen Performing Organization Address City/[facility]/Zipcode Phone Number [facility] DEPARTMENT OF PATHOLOGY AND [address] [place] [phone] [place] [phone] C-reactive protein (08/19/2018 1:00 AM APPLICATIONS SPECIALIST) CRP 5.51 (H) 0.00 - 0.50 mg/dL [facility] Specimen Plasma specimen Performing Organization Address City/[facility]/Zipcode Phone Number [facility] DEPARTMENT OF PATHOLOGY AND [address] [place] [phone] Folate level (08/19/2018 1:00 AM APPLICATIONS SPECIALIST) Folate >20.0 4.8 - 24.2 ng/mL [facility] Specimen Serum Narrative Performed At CO2 results called to and read back by [facility] DEPARTMENT OF PATHOLOGY AND [facility] (name/location) MEDICINE 08/19/201807:21 (date/time) by [facility]. Performing Organization Address [facility] Phone Number [facility] DEPARTMENT OF PATHOLOGY AND [address] [place] [phone] [place] [address] Ferritin level (08/19/2018 1:00 AM APPLICATIONS SPECIALIST) Ferritin level 314 30 - 400 ng/mL [facility] Specimen Plasma specimen Performing Organization Address City/[facility]/Zipcode Phone Number [facility] DEPARTMENT OF PATHOLOGY AND [address] [place] [phone] [place] [address] Vitamin B12 level (08/19/2018 1:00 AM APPLICATIONS SPECIALIST) Vitamin B12 1,551 (H) 211 - 946 [facility] Comment: pg/mL HOSPITAL Significant overlap exists between normal and deficiency states. However, most patients with deficiencies will have Serum B12 <200 pg/mL. Specimen Serum Narrative Performed At CO2 results called to and read back by [facility] DEPARTMENT OF PATHOLOGY AND [facility] (name/location) MEDICINE 08/19/201807:21 (date/time) by [facility]. Performing Organization Address City/State/Zipcode Phone Number [facility] DEPARTMENT OF PATHOLOGY AND [address] [place] [address] [address] Hepatic function panel (08/19/2018 1:00 AM APPLICATIONS SPECIALIST) Albumin 2.7 (L) 3.5 - 5.0 g/dL [facility] Total bilirubin 0.3 0.0 - 1.2 [facility] mg/dL [facility] Bilirubin direct <0.2 0.0 - 0.3 [facility] mg/dL [facility] Alkaline phosphatase 96 40 - 129 U/L [facility] Protein 7.0 6.3 - 8.3 g/dL [facility] Comment: HOSPITAL 4.6-7.0 g/dL 1 week 4.4-7.6 g/dL 7 months-1year5.1-7.3 g/dL 1-2 years5.6-7.5 g/dL >3 years6.0-8.0 g/dL 18-150 6.3-8.3 g/dL ALT 20 5 - 50 U/L [facility] AST 29 10 - 50 U/L [facility] Specimen Plasma specimen Performing Organization Address City/State/Zipcode Phone Number [facility] DEPARTMENT OF PATHOLOGY AND [address] [place] [address] [facility] [address] [place] [address] US Renal Transplant Doppler (08/19/2018 12:47 AM APPLICATIONS SPECIALIST) Specimen Narrative Performed At EXAMINATION: US RENAL TRANSPLANT DOPPLER [facility] CLINICAL HISTORY: hx of renal transplant x [...] Prior right iliac fossa renal transplant nonvisualized. [facility]-[id number] Procedure Note Hm Interface, Radiology Results Incoming - 08/19/2018 1:21 AM APPLICATIONS SPECIALIST EXAMINATION: US RENAL TRANSPLANT DOPPLER CLINICAL HISTORY: [...] Prior right iliac fossa renal transplant nonvisualized. [facility]-[id number] Performing Organization Address City/State/Zipcode Phone Number [facility] [address] [place] [address] CT Lower Extremity Wo Contrast Right (08/18/2018 10:59 PM APPLICATIONS SPECIALIST) Specimen Narrative Performed At Examination: CT LOWER EXTREMITY WO CONTRAST RIGHT [facility] Clinical history: Fracturehip Comparison: None Technique: CT [...] effusion is seen of the right hip. [facility]-[id number] Procedure Note Interface, Radiology Results Incoming - 08/18/2018 11:17 PM APPLICATIONS SPECIALIST Examination: CT LOWER EXTREMITY WO CONTRAST RIGHT [...] effusion is seen of the right hip. [facility]-[id number] Performing Organization Address City/State/Zipcode Phone Number [facility] [address] [place] [address] XR Pelvis 3+ Vw (08/18/2018 8:22 PM APPLICATIONS SPECIALIST) Specimen Narrative Performed At [facility]W [facility] IND[facility]:Hip painacutefx suspectedinitial exam [...] participate in the care of your patient. [facility]-[id number] Procedure Note Interface, Radiology Results Incoming - 08/18/2018 8:37 PM APPLICATIONS SPECIALIST XR PELVIS 3 VW CLINICAL INDICATION: Hip [...] participate in the care of your patient. [facility]-[id number] Performing Organization Address [facility] Phone Number [facility] [address] [place] [address] XR Femur 2 Vw Right (08/18/2018 8:22 PM APPLICATIONS SPECIALIST) Specimen Narrative Performed At XR FEMUR 2 VW RIGHT [facility] CLINICAL INDICATION:Fracturefemur COMPARISON:None. IMPRESSION: Bones are markedly demineralized. No fracture or osseous lesion of the femur is identified. There is no erosion or periostitis. There are severe vascular calcifications throughout the pelvis and right lower extremity. Thank you for allowing us to participate in the care of your patient [facility]-[id number] Procedure Note Interface, Radiology Results Incoming - 08/18/2018 8:34 PM APPLICATIONS SPECIALIST XR FEMUR 2 VW RIGHT CLINICAL INDICATION: Fracture femur COMPARISON: None. IMPRESSION: Bones are markedly demineralized. No fracture or osseous lesion of the femur is identified. There is no erosion or periostitis. There are severe vascular calcifications throughout the pelvis and right lower extremity. Thank you for allowing us to participate in the care of your patient [facility]-[id number] Performing Organization Address [facility] Phone Number [facility] [address] [place] [address] Partial thromboplastin time, activated (08/18/2018 7:42 PM APPLICATIONS SPECIALIST) PTT 34.6 23.0 - 36.0 [facility] DEPARTMENT OF Comment: sec PATHOLOGY AND PTT therapeutic range for unfractionated heparin is [employer] MEDICINE 61.0-112.0 seconds which corresponds to Anti-Xa 0.3-0.7 U/ml. Specimen Blood Performing Organization Address [facility]/Zipcode Phone Number [facility] DEPARTMENT OF PATHOLOGY AND [address] [place] [address] [employer] MEDICINE after 04/05/2018 Insurance Payer Benefit Plan / Subscriber ID Effective Dates Phone Address Type Group MEDICARE MEDICARE PART A xxxxxxxxxxx 1992-Present [place], [place] Medicare AND B [facility] MEDICAID [facility] xxxxxxxxx 2011-Present [employer] Advance Directives Patient has advance care planning documents on file. For more information, please contact:Mervin [id number] [place] [address]
--- OUTSIDE RECORDS SUMMARY | 2019-04-06 10:15 | XMS REPORT ---
:1965 Author Organization [facility] Address [address] Castro [address] [place] [address] Care Team Providers Name Role Phone THERESA [...] PATIENT ID : WITHOUT IV March Reji [id number] MRV of the pelvic CONTRAST veins and [...] addition, other various MR a tiny including thjy-qp-jfnitl images, as well as 3-D turbo spin-echo [...] widely patent. Some nonobstructive atherosclerosis is seen. Nurses Assistant dimension of the left and the right [...] are patent with no venous thrombosis identified. Nurses Assistant dimension of the left and the right [...] also patent with no venous thrombosis identified. Nurses Assistant dimensions of the left and right external [...] MDReport Verified Date/Time: 04/10/2018 12:04:22 Reading Location: [place] [address] Cardiology MRI , MRA ABDOMEN, 2018-04-10 12:04:00 Referring: FINAL REPORT PATIENT ID : WITHOUT CONTRAST March Reji [id number] MRV of the pelvic veins and the [...] addition, other various MR a tiny including cerr-yz-nqdtji images, as well as 3-D turbo spin-echo [...] widely patent. Some nonobstructive atherosclerosis is seen. Nurses Assistant dimension of the left and the right [...] are patent with no venous thrombosis identified. Nurses Assistant dimension of the left and the right [...] also patent with no venous thrombosis identified. Nurses Assistant dimensions of the left and right external [...] MDReport Verified Date/Time: 04/10/2018 12:04:22 Reading Location: [place] [address] Cardiology MRI TYPING 2017-08-29 11:31:00 Test Item Value Reference Range Comments HLA RESULT (BEAKER) (test bdup=8117) See Scanned Report HLA-A AG1 (BEAKER) (test rvzd=9942) HLA-A AG2 (BEAKER) (test agba=7537) HLA-B AG1 (BEAKER) (test jwcj=9244) HLA-B AG2 (BEAKER) (test jbow=1895) HLA-C AG1 (BEAKER) (test rbce=2592) HLA-C AG2 (BEAKER) (test tfpa=5510) HLA-DR AG1 (BEAKER) (test wfmk=6384) HLA-DR AG2 (BEAKER) (test jogd=1208) HLA-DQ AG1 (BEAKER) (test dstj=4420) HLA-DQ AG2 (BEAKER) (test rgzm=4420) HLA-DRW (BEAKER) (test ayyo=1032) FLOW PRA CLASS I AND [id number] 11:44:00 Test Item Value Reference Range Comments DATE OF SERUM (BEAKER) (test rxom=0620) [id number] SERUM # (BEAKER) (test ljur=5725) [id number] FLOW PRA CLASS I AND II (test ojrl=3122) See Scanned Report CREATININE [id number] 16:31:00 Test Item Value Reference Range Comments CREATININE CLEARANCE (BEAKER) 19.0 mL/min 70.0-140.0 (test bwqf=821) VOLUME, TOTAL (BEAKER) (test 1800 ml eowj=2654) CREATININE URINE (BEAKER) (test 32.2 mg/dL ehkd=239) [id number] ([facility]) Rakesh Kee M.D. (test zkgo=5597) ([facility] 24 hour urine collection for creatinine clearance and protein.[id number] 14:33:00 Test Item Value Reference Range Comments CREATININE (BEAKER) (test 2.48 mg/dL 0.57-1.25 ryor=504) EGFR (BEAKER) (test 28 mL/min/1.73 sq m ESTIMATED GFR IS NOT fhxj=7372) ACCURATE CREATININE CLEARANCE IN PREDICTING GLOMERULAR FILTRATION RATE. ESTIMATED GFR IS NOT APPLICABLE FOR DIALYSIS PATIENTS. 24 hour urine collection for creatinine clearance and protein.VARICELLA ZOSTER ANTIBODY, [id number] 07:07:00 Test Item Value Reference Range Comments VARICELLA ZOSTER IGG (AL) (BEAKER) (test wkqm=2108) 2.5 Al VARICELLA ZOSTER RESULT INTERPRETATIONS: <=0.8 Al Nonreactive: Presumed non-immune to VZV 0.9-1.0 Al Equivocal >=1.1 Al Reactive: Presumed immune to VZVCYTOMEGALOVIRUS ANTIBODY, [id number] 07:01:00 Test Item Value Reference Range Comments CYTOMEGALOVIRUS IGG ANTIBODY (BEAKER) (test Positive jqvq=037) CYTOMEGALOVIRUS ANTIBODY, [id number] 07:01:00 Test Item Value Reference Range Comments CYTOMEGALOVIRUS IGM ANTIBODY (BEAKER) (test Negative pimo=499) EBV-VCA ANTIBODY, [id number] 07:01:00 Test Item Value Reference Range Comments HOANG-SHARP VCA IGG (BEAKER) (test wyrk=467) Positive EBV-VCA ANTIBODY, [id number] 07:01:00 Test Item Value Reference Range Comments HOANG-SHARP VCA IGM (BEAKER) (test zoku=727) Negative MHA - [id number] 04:29:00 Test Item Value Reference Range Comments MHA-TP (BEAKER) (test xajq=7938) Nonreactive RPR [id number] 04:29:00 Test Item Value Reference Range Comments RPR TITER (BEAKER) (test kxcy=0347) :8 [id number] 04:29:00 Test Item Value Reference Range Comments RPR SCREEN (BEAKER) (test zedt=987) Reactive Nonreactive URINE [id number] 14:53:00 Test Item Value Reference Range Comments CULTURE (BEAKER) (test vawk=4587) No growth HIV-1 ANTIGEN WITH HIV-1/2 [id number] 15:17:00 Test Item Value Reference Range Comments HIV-1 ANTIGEN WITH HIV 1\\T\\2 ANTIBODY (2) Nonreactive Nonreactive (BEAKER) (test klxs=3553) RAD, CHEST, 2 [id number] 13:04:00Referring: Dr. Vero Olsen for Exam:-& gt;Pre kidney transplant evaluation.FINAL REPORT Two views chest compared to July 19, 2005 Discussion: Old right-sided rib fractures are noted. Cardio pulmonary appearance unremarkable. No effusion or pneumothorax. Signed: Vipin Lock Verified Date/Time: 06/21/2017 13: 04:47 Reading Location: [facility] C0W Consult Reading Room HEMOGLOBIN [id number] 12 :22:00 Test Item Value Reference Range Comments HEMOGLOBIN A1C (BEAKER) (test lvad=957) 7.8 % 4.3-6.1 PTH, [id number] 11:26:00 Test Item Value Reference Range Comments PARATHYROID HORMONE INTACT (BEAKER) (test 582.8 pg/mL 8.5-72.5 cnhc=859) HEPATITIS B SURFACE [id number] 11:11:00 Test Item Value Reference Range Comments HEPATITIS B SURFACE ANTIBODY (BEAKER) (test < mIU/mL <8.0 agrf=922) HEPATITIS B SURFACE [id number] 10:57:00 Test Item Value Reference Range Comments HEPATITIS B SURFACE ANTIGEN (2) (BEAKER) (test Nonreactive Nonreactive auzc=6086) HEPATITIS B CORE ANTIBODY, [id number] 10:57:00 Test Item Value Reference Range Comments HEPATITIS B CORE IGM ANTIBODY (BEAKER) (test Nonreactive Nonreactive foaj=602) HEPATITIS C [id number] 10:57:00 Test Item Value Reference Range Comments HEPATITIS C ANTIBODY (BEAKER) (test cpju=298) Nonreactive Nonreactive [id number] 10:57:00 Test Item Value Reference Range Comments PROSTATE SPECIFIC ANTIGEN (BEAKER) (test wuno=432) 0.2 ng/mL 0.0-4.0 COMPREHENSIVE METABOLIC [id number] 10:05:00 Test Item Value Reference Range Comments TOTAL PROTEIN (BEAKER) 6.8 gm/dL 6.0-8.3 (test pfvf=626) ALBUMIN (BEAKER) (test 3.9 g/dL 3.5-5.0 fman=3910) ALKALINE PHOSPHATASE 76 U/L 40-150 (BEAKER) (test jvfr=534) BILIRUBIN TOTAL (BEAKER) 0.3 mg/dL 0.2-1.2 (test cfmn=672) SODIUM (BEAKER) (test 136 meq/L 136-145 ozbx=779) POTASSIUM (BEAKER) (test 5.5 meq/L 3.5-5.1 wbof=172) CHLORIDE (BEAKER) (test 116 meq/L 98-107 zxzw=971) CO2 (BEAKER) (test 15 meq/L 22-29 rpwt=612) BLOOD UREA NITROGEN 53 mg/dL 7-21 (BEAKER) (test lboz=447) CREATININE (BEAKER) (test 2.34 mg/dL 0.57-1.25 qvuy=091) GLUCOSE RANDOM (BEAKER) 96 mg/dL 70-105 (test ttqg=968) CALCIUM (BEAKER) (test 9.2 mg/dL 8.4-10.2 mkbl=554) AST (SGOT) (BEAKER) (test 24 U/L 5-34 kuds=409) ALT (SGPT) (BEAKER) (test 23 U/L 6-55 lbpw=083) EGFR (BEAKER) (test 29 mL/min/1.73 sq m ESTIMATED GFR IS NOT dfea=5406) ACCURATE CREATININE CLEARANCE IN PREDICTING GLOMERULAR FILTRATION RATE. ESTIMATED GFR IS NOT APPLICABLE FOR DIALYSIS PATIENTS. URIC [id number] 09:57:00 Test Item Value Reference Range Comments URIC ACID (BEAKER) (test sufl=986) 7.1 mg/dL 2.6-7.2 [id number] 09:57:00 Test Item Value Reference Range Comments PHOSPHORUS (BEAKER) (test nlit=077) 4.7 mg/dL 2.3-4.7 LIPID [id number] 09:57:00 Test Item Value Reference Range Comments TRIGLYCERIDES (BEAKER) (test elyd=134) 197 mg/dL CHOLESTEROL (BEAKER) (test ziyt=605) 183 mg/dL HDL CHOLESTEROL (BEAKER) (test pjxl=876) 29 mg/dL LDL CHOLESTEROL CALCULATED (BEAKER) (test 115 mg/dL svdy=617) Triglyceride Reference Range: Low Risk <150 Borderline [...] Range Comments GAMMA GLUTAMYL TRANSFERASE (BEAKER) (test myat=940) 24 U/L 9-64 LACTATE DEHYDROGENASE (LDH)2017-06-21 09:57:00 Test Item Value Reference Range Comments LACTATE DEHYDROGENASE (BEAKER) (test zlol=301) 148 U/L 125-220 URINALYSIS W/ [id number] 09:23:00 Test Item Value Reference Range Comments COLOR (BEAKER) (test ypiw=219) Light Yellow CLARITY (BEAKER) (test dnyv=421) Clear SPECIFIC GRAVITY UA (BEAKER) (test nudv=499) 1.008 1.001-1.035 PH UA (BEAKER) (test qfof=371) 5.5 5.0-8.0 PROTEIN UA (BEAKER) (test kfwt=042) 200 mg/dL Negative GLUCOSE UA (BEAKER) (test yrpt=161) Negative Negative KETONES UA (BEAKER) (test mvgs=015) Negative Negative BILIRUBIN UA (BEAKER) (test bdqa=153) Negative Negative BLOOD UA (BEAKER) (test euyj=184) Trace Negative NITRITE UA (BEAKER) (test eslu=052) Negative Negative LEUKOCYTE ESTERASE UA (BEAKER) (test yjwr=070) Negative Negative UROBILINOGEN UA (BEAKER) (test xsac=735) 0.2 mg/dL 0.2-1.0 RBC UA (BEAKER) (test dzfl=364) 1 /HPF WBC UA (BEAKER) (test ztzl=850) 1 /HPF SQUAMOUS EPITHELIAL (BEAKER) (test zvgc=142) < /HPF SOURCE(BEAKER) (test vyxb=6141) OCCULT BLOOD, [id number] 19:03:00 Test Item Value Reference Range Comments FECAL OCCULT BLOOD (BEAKER) (test etqy=015) Negative Negative OCCULT BLOOD, [id number] 19:03:00 Test Item Value Reference Range Comments FECAL OCCULT BLOOD (BEAKER) (test szqx=257) Negative Negative TISSUE [id number] 18:04:00Surgical Pathology Report Case: [id number] Authorizing Provider: Ella Head MD Ordering Provider: Ella Head MD [facility] OP Collected: 01/20 1404 Pathologist: [...] SEE COMMENT Signing Pathologist Direct Phone Line: [phone] renal biopsy shows marked chronic changes. No [...] results were discussed with Dr. Villanueva on [phone], 76325 x3, 21362, 72146 x7, [id number] renal transplant in 2002 with slowly rising [...] focally upto 845 nm (normal adult male nbyzpso=149 - 430 nm; Monique Black ,Arch Pathol Lab Med 133:224-232). There is wrinkling of glomerular basement membranes. No subendothelial rarefaction is noted. Segmental double contours are seen with mesangial interpositioning. Focal hyalinosis is present. There are rare scattered subepithelial electron dense deposits. Podocyte foot processes are segmentally preserved. Peritubular capillaries show normal 1-3 lamellations. .CBC WITH PLATELET COUNT + MANUAL [id number] 10:07:00 Test Item Value Reference Range Comments WHITE BLOOD CELL COUNT (BEAKER) (test xggc=162) 8.4 K/ L 4.0-10.0 RED BLOOD CELL COUNT (BEAKER) (test nhac=153) 2.76 M/ L 4.20-5.80 HEMOGLOBIN (BEAKER) (test vbpi=535) 9.5 GM/DL 13.0-16.8 HEMATOCRIT (BEAKER) (test ulrj=254) 29.2 % 40.0-50.0 MEAN CORPUSCULAR VOLUME (BEAKER) (test roak=585) 106.0 fL 82.0-98.0 MEAN CORPUSCULAR HEMOGLOBIN (BEAKER) (test 34.4 pg 27.0-33.0 qtds=116) MEAN CORPUSCULAR HEMOGLOBIN CONC (BEAKER) (test 32.5 GM/DL 32.0-36.0 xucs=611) RED CELL DISTRIBUTION WIDTH (BEAKER) (test 13.5 % 10.3-14.2 pfyl=950) PLATELET COUNT (BEAKER) (test bgvh=556) 224 K/CU MM 150-430 MEAN PLATELET VOLUME (BEAKER) (test cyts=537) 7.0 fL 6.5-10.5 NUCLEATED RED BLOOD CELLS (BEAKER) (test 0 /100 WBC 0-0 qhvg=446) NEUTROPHILS RELATIVE PERCENT (BEAKER) (test 51 % nekr=972) LYMPHOCYTES RELATIVE PERCENT (BEAKER) (test 35 % zgvj=946) MONOCYTES RELATIVE PERCENT (BEAKER) (test 11 % pdar=251) EOSINOPHILS RELATIVE PERCENT (BEAKER) (test 3 % mgxn=444) BASOPHILS RELATIVE PERCENT (BEAKER) (test 0 % kbdl=027) NEUTROPHILS ABSOLUTE COUNT (BEAKER) (test 4.31 K/ L 1.80-8.00 npdo=056) LYMPHOCYTES ABSOLUTE COUNT (BEAKER) (test 2.92 K/ L 1.48-4.50 fqrs=231) MONOCYTES ABSOLUTE COUNT (BEAKER) (test 0.91 K/ L 0.00-1.30 lmsn=473) EOSINOPHILS ABSOLUTE COUNT (BEAKER) (test 0.24 K/ L 0.00-0.50 ulgc=131) BASOPHILS ABSOLUTE COUNT (BEAKER) (test 0.03 K/ L 0.00-0.20 enjy=150) 0.00(MANUAL DIFFERENTIAL)2017-01-20 10:07:00 Test Item Value Reference Range Comments TOTAL COUNTED (BEAKER) (test ipvy=1143) WBC MORPHOLOGY (BEAKER) (test yhaq=788) Normal PLT MORPHOLOGY (BEAKER) (test vnsc=344) Normal MACROCYTES (BEAKER) (test bbob=834) 1+ few COMPREHENSIVE METABOLIC [id number] 09:02:00 Test Item Value Reference Range Comments TOTAL PROTEIN (BEAKER) 6.3 gm/dL 6.0-8.3 Specimen slightly (test qqjx=070) hemolyzed ALBUMIN (BEAKER) (test 3.3 g/dL 3.5-5.0 Specimen slightly evhh=2540) hemolyzed ALKALINE PHOSPHATASE 86 U/L 40-150 (BEAKER) (test sghe=461) BILIRUBIN TOTAL (BEAKER) 0.2 mg/dL 0.2-1.2 Specimen slightly (test nabc=744) hemolyzed SODIUM (BEAKER) (test 138 meq/L 136-145 mhpo=734) POTASSIUM (BEAKER) (test 5.3 meq/L 3.5-5.1 Specimen slightly tlrh=998) hemolyzed CHLORIDE (BEAKER) (test 113 meq/L 98-107 qckz=329) CO2 (BEAKER) (test 16 meq/L 22-29 thra=019) BLOOD UREA NITROGEN 57 mg/dL 7-21 (BEAKER) (test gbxt=931) CREATININE (BEAKER) (test 2.37 mg/dL 0.57-1.25 Specimen slightly prxv=549) hemolyzed GLUCOSE RANDOM (BEAKER) 138 mg/dL 70-105 (test offz=008) CALCIUM (BEAKER) (test 9.2 mg/dL 8.4-10.2 sxjc=079) AST (SGOT) (BEAKER) (test 33 U/L 5-34 Specimen slightly pqyn=568) hemolyzed ALT (SGPT) (BEAKER) (test 32 U/L 6-55 Specimen slightly pwir=362) hemolyzed EGFR (BEAKER) (test 29 mL/min/1.73 sq m ESTIMATED GFR IS NOT rgak=3856) ACCURATE CREATININE CLEARANCE IN PREDICTING GLOMERULAR FILTRATION RATE. ESTIMATED GFR IS NOT APPLICABLE FOR DIALYSIS PATIENTS. PT/[id number] 08:35:00 Test Item Value Reference Range Comments PROTIME (BEAKER) (test thej=604) 13.5 seconds 11.7-14.7 INR (BEAKER) (test pdeu=124) 1.0 <=5.9 PARTIAL THROMBOPLASTIN TIME (BEAKER) (test 31.3 seconds 22.5-36.0 qgkt=309) RECOMMENDED COUMADIN/WARFARIN INR THERAPY RANGESSTANDARD DOSE: 2.0 - 3.0 Includes: PROPHYLAXIS forvenous thrombosis, systemic embolization; TREATMENT for venous thrombosis and/or pulmonary embolus.HIGH RISK: Target INR is 2.5-3.5 for patients with mechanical heart valves.
--- OUTSIDE RECORDS SUMMARY | 2019-04-06 10:15 | XMS REPORT | Clinical Summary ---
:1965 Author Organization [facility] Address [address] [place] [address] Care Team Providers Name Role Phone Cheko [...] have regular follow-up with PCP. Number for [facility] primary care office was given. Encounters Date Type Specialty Care Team Description 09/17/2018 Abstract Transplant Leona Jeff Y, RN 08/21/2018 Telephone Transplant Leona Jeff Follow-up Y, RN 07/30/2018 Telephone Transplant Leona Jeff Follow-up Y, RN 06/04/2018 Telephone Transplant Leona Jeff Follow-up Y, RN 06/01/2018 Telephone Transplant Leona Jeff Kidney Transplant Y, RN Pre-evaluation 06/01/2018 Orders Only Transplant Leona Jeff Y, RN 05/22/2018 Refill Transplant Susan Clarke MD 04/25/2018 Documentation Transplant [place], S/P liver transplant ( Primary Dx); Ivania Garcia RN Hx of kidney transplant; Cancer screening; Essential hypertension 04/17/2018 Social Work Transplant Adama Stone, RIG BUILDER 04/13/2018 Outside Orders Central Scheduling Mario Shields [...] for chronic kidney disease 04/10/2018 Hospital Encounter Yasir Caceres. II, MD 04/10/2018 Social Work Transplant Adama Stone, RIG BUILDER 04/10/2018 Orders Only Transplant Peng S/Radha liver transplant; Yasir Higuera II, Essential hypertension; Pre-transplant evaluation for chronic kidney disease; CKD (chronic kidney disease) stage 4, GFR 15-29 ml/min (HCC) 04/10/2018 Orders Only Transplant [place], S/P liver transplant (Primary Dx); Ivania Garcia RN Essential hypertension; Pre-transplant evaluation for chronic kidney disease; CKD (chronic kidney disease) stage 4, GFR 15-29 ml/min (HCC) after 04/05/2018 Family History Medical History Relation Name Comments [...] 04/10/2018 10:33 AM CDT Plan of Treatment Not on file Procedures Procedure Name Priority Date/Time Associated Diagnosis Comments MR MRA ABDOMEN Routine 04/10/2018 9:35 AM Results for this WITHOUT CONTRAST CDT procedure are in the results section. MR MRA PELVIS Routine 04/10/2018 9:35 AM S/P liver transplant Results for this WITHOUT CONTRAST CDT Hx of kidney procedure are in transplant the results Pre-transplant section. evaluation for chronic kidney disease after 04/05/2018 Results MRA abdomen without IV contrast (04/10/2018 9:35 AM CDT) Specimen Narrative Performed At FINAL REPORT [facility] MRV of the pelvic veins and the [...] addition, other various MR a tiny including uzjv-ro-dtihud images, as well as 3-D turbo spin-echo [...] widely patent. Some nonobstructive atherosclerosis is seen. Custodial Maintenance Worker dimension of the left and the right [...] are patent with no venous thrombosis identified. Custodial Maintenance Worker dimension of the left and the right [...] also patent with no venous thrombosis identified. Custodial Maintenance Worker dimensions of the left and right external [...] MD Report Verified Date/Time:04/10/2018 12:04:22 Reading Location: [place] [address] Cardiology MRI Procedure Note Interface, External Ris [...] addition, other various MR a tiny including uogs-jf-fjgavh images, as well as 3-D turbo spin-echo [...] widely patent. Some nonobstructive atherosclerosis is seen. Custodial Maintenance Worker dimension of the left and the right [...] are patent with no venous thrombosis identified. Custodial Maintenance Worker dimension of the left and the right [...] also patent with no venous thrombosis identified. Custodial Maintenance Worker dimensions of the left and right external [...] Report Verified Date/Time: 04/10/2018 12:04:22 Reading Location: [place] [id number] Cardiology MRI Performing Organization Address City/State/Zipcode Phone Number [employer] MRA pelvis without IV contrast (04/10/2018 9:35 AM CDT) Specimen Narrative Performed At FINAL REPORT [facility] MRV of the pelvic veins and the [...] addition, other various MR a tiny including scem-cs-uedaii images, as well as 3-D turbo spin-echo [...] widely patent. Some nonobstructive atherosclerosis is seen. Custodial Maintenance Worker dimension of the left and the right [...] are patent with no venous thrombosis identified. Custodial Maintenance Worker dimension of the left and the right [...] also patent with no venous thrombosis identified. Custodial Maintenance Worker dimensions of the left and right external [...] MD Report Verified Date/Time:04/10/2018 12:04:22 Reading Location: [place] [address] Cardiology MRI Procedure Note Interface, External Ris [...] addition, other various MR a tiny including zbag-zt-vsrfyb images, as well as 3-D turbo spin-echo [...] widely patent. Some nonobstructive atherosclerosis is seen. Custodial Maintenance Worker dimension of the left and the right [...] are patent with no venous thrombosis identified. Custodial Maintenance Worker dimension of the left and the right [...] also patent with no venous thrombosis identified. Custodial Maintenance Worker dimensions of the left and right external [...] Report Verified Date/Time: 04/10/2018 12:04:22 Reading Location: [place] [address] Cardiology MRI Performing Organization Address City/State/Zipcode Phone Number GE RIS after 04/05/2018 Insurance Payer Benefit Plan / Group Subscriber ID Type Phone Address MEDICARE MEDICARE A B xxxxxxxxxx Medicare MEDICAID [place]ICA[place] xxxxxxxxx Medicaid Advance Directives For more information, please contact:[address] [phone] Code Status Date Activated Date Inactivated Comments Full Code 01/20/2017 2:15 PM 01/20/2017 8:34 PM This code status was determined by: Patient
[2019-04-06 11:46] LABS: Potassium 5.2 mmol/L (3.5-5.1)
--- NOTE | 2019-04-06 11:56 | ER ---
Nurse's Notes [facility] Name: Mumtaz Clark Age: 53 yrs Sex: Male : 1965 Arrival Date: 04/06/2019 Time: 10:11 Bed 18 Private MD: Diagnosis: Person with feared health complaint in whom no diagnosis is made Presentation: 04/06 10:14 Presenting complaint: Patient states: He missed a weeks worth of dialysis because his aj1 blood pressure was too low. When he came in to get dialysis today they told him that he had to come to the ER to get his potassium checked before they would give him dialysis. Transition of care: patient was not received from another setting of care. Onset of symptoms was April 06, 2019. Risk Assessment: Do you want to hurt yourself or someone else? Patient reports no desire to harm self or others. Initial Sepsis Screen: Does the patient meet any 2 criteria? No. Patient's initial sepsis screen is negative. Does the patient have a suspected source of infection? No. Patient's initial sepsis screen is negative. Care prior to arrival: None. 10:14 Method Of Arrival: Ambulatory aj1 10:14 Acuity: RM 3 aj1 Triage Assessment: 10:17 General: Appears in no apparent distress. comfortable, Behavior is calm, cooperative, aj1 appropriate for age. Pain: Denies pain. Neuro: Level of Consciousness is awake, alert, obeys commands. Cardiovascular: Patient's skin is warm and dry. Respiratory: Airway is patent Respiratory effort is even, unlabored, Respiratory pattern is regular, symmetrical. Historical: - Allergies: 10:17 Hectorol; aj1 - Home Meds: 10:17 prednisone 5 mg/5 mL Oral soln once daily [Active]; tacrolimus 2 mg Oral cap every 12 aj1 hours [Active]; metoprolol tartrate 50 mg Oral tab 1 tab 2 times per day [Active]; lisinopril 20 mg Oral tab 1 tab once daily [Active]; - PMHx: 10:17 Hypertension; kidney transplant; liver transplant; neuropathy; ESRD; Dialysis; aj1 - Immunization history:: Flu vaccine is up to date. - Social history:: Smoking status: Patient/guardian denies using tobacco. - Ebola Screening: : Patient denies travel to an Ebola-affected area in the 21 days before illness onset. Screenin:30 Abuse screen: Denies threats or abuse. Nutritional screening: No deficits noted. em Tuberculosis screening: No symptoms or risk factors identified. Fall Risk None identified. Assessment: 10:45 General: Appears in no apparent distress. comfortable, Behavior is calm, cooperative. em Pain: Denies pain. Neuro: Level of Consciousness is awake, alert, obeys commands, Oriented to person, place, time, situation. Cardiovascular: Denies chest pain, nausea, shortness of breath, Capillary refill < 3 seconds is brisk Patient's skin is warm and dry. Rhythm is sinus rhythm Chest pain is denied Dialysis shunt: in the dorsal aspect of right forearm, with palpable thrill, with auscultated bruit, with no erythema, with no edema, no bleeding noted. Respiratory: Airway is patent Respiratory effort is even, unlabored, Respiratory pattern is regular, symmetrical. GI: Abdomen is flat, Patient currently denies nausea, vomiting. Derm: Skin is intact, is healthy with good turgor, Skin is pink, warm \T\ dry. Musculoskeletal: Capillary refill < 3 seconds, Range of motion: intact in all extremities. 11:45 Reassessment: Patient appears in no apparent distress at this time. Patient and/or em family updated on plan of care and expected duration. Pain level reassessed. Patient is alert, oriented x 3, equal unlabored respirations, skin warm/dry/pink. Patient denies pain at this time. Vital Signs: 10:17 BP 129 / 87; Pulse 70; Resp 18; Temp 97.5; Pulse Ox 97% on R/A; Weight 47.63 kg (R); aj1 Height 5 ft. 9 in. (175.26 cm) (R); Pain 0/10; 11:00 BP 133 / 89; Pulse 64; Resp 18; Pulse Ox 99% on R/A; Pain 0/10; em 11:45 BP 145 / 88; Pulse 63; Resp 14; Pulse Ox 100% on R/A; Pain 0/10; em 10:17 Body Mass Index 15.51 (47.63 kg, 175.26 cm) aj1 ED Course: 10:11 Patient arrived in ED. as 10:15 Triage completed. [facility] 10:17 Adolfo Bah PA is PHCP. [facility] 10:17 Jose Lyn MD is Attending Physician. [facility] 10:17 Arm band placed on Patient placed in an exam room. aj1 10:30 Patient has correct armband on for positive identification. Placed in gown. Bed in low em position. Call light in reach. government clerk on. Pulse ox on. NIBP on. 10:33 Santiago Vazquez LVN is Primary Nurse. em 11:00 Initial lab(s) drawn, by me, sent to lab. em 12:11 No provider procedures requiring assistance completed. Patient did not have IV access em during this emergency room visit. Administered Medications: No medications were administered Outcome: 11:54 Discharge ordered by . [facility] 12:11 Discharged to home ambulatory. em 12:11 Condition: good 12:11 Discharge instructions given to patient, Instructed on discharge instructions, follow up and referral plans. Demonstrated understanding of instructions, follow-up care. 12:25 Patient left the ED. em Signatures: Montserrat Mckeon RN RN aj1 Adolfo Bah PA PA [facility] Santiago Vazquez LVN LVN em Angeline Vicente as
--- NOTE | 2019-04-06 11:57 | EDPHYS ---
Physician Documentation [facility] Name: Mumtaz Clark Age: 53 yrs Sex: Male : 1965 Arrival Date: 04/06/2019 Time: 10:11 Bed 18 Private MD: ED Physician Jose Lyn HPI: 04/06 10:30 This 53 yrs old Male presents to ER via Ambulatory with complaints of needs jmm potassium checked. 10:30 needs potassium checked. Onset: The symptoms/episode began/occurred today. This isd a jmm 53 year old male with a history of htn, esrd that presents to the ED requesting lab evaluation. Patient states he has not had dialysis in a week due to low blood pressure. Patient denies chest pain, denies shortness of breath. . Historical: - Allergies: 10:17 Hectorol; aj1 - Home Meds: 10:17 prednisone 5 mg/5 mL Oral soln once daily [Active]; tacrolimus 2 mg Oral cap every 12 aj1 hours [Active]; metoprolol tartrate 50 mg Oral tab 1 tab 2 times per day [Active]; lisinopril 20 mg Oral tab 1 tab once daily [Active]; - PMHx: 10:17 Hypertension; kidney transplant; liver transplant; neuropathy; ESRD; Dialysis; aj1 - Immunization history:: Flu vaccine is up to date. - Social history:: Smoking status: Patient/guardian denies using tobacco. - Ebola Screening: : Patient denies travel to an Ebola-affected area in the 21 days before illness onset. ROS: 10:30 Constitutional: Negative for fever, chills, and weight loss, Cardiovascular: Negative jmm for chest pain, palpitations, and edema, Respiratory: Negative for shortness of breath, cough, wheezing, and pleuritic chest pain, Neuro: Negative for headache, weakness, numbness, tingling, and seizure. 10:30 All other systems are negative. Exam: 10:30 Constitutional: This is a well developed, well nourished patient who is awake, alert, jmm and in no acute distress. Head/Face: atraumatic. Eyes: EOMI, no conjunctival erythema appreciated ENT: Moist Mucus Membranes Neck: Trachea midline, Supple Chest/axilla: Normal chest wall appearance and motion. Cardiovascular: Regular rate and rhythm. No edema appreciated Respiratory: Normal respirations, no respiratory distress appreciated Abdomen/GI: Non distended, soft Back: Normal ROM Skin: General appearance color normal MS/ Extremity: Moves all extremities, no obvious deformities appreciated, no edema noted to the lower extremities Neuro: Awake and alert, normal gait Psych: Behavior is normal, Mood is normal, Patient is cooperative and pleasant 10:34 ECG was reviewed by the Attending Physician. [facility] Vital Signs: 10:17 BP 129 / 87; Pulse 70; Resp 18; Temp 97.5; Pulse Ox 97% on R/A; Weight 47.63 kg (R); aj1 Height 5 ft. 9 in. (175.26 cm) (R); Pain 0/10; 11:00 BP 133 / 89; Pulse 64; Resp 18; Pulse Ox 99% on R/A; Pain 0/10; em 11:45 BP 145 / 88; Pulse 63; Resp 14; Pulse Ox 100% on R/A; Pain 0/10; em 10:17 Body Mass Index 15.51 (47.63 kg, 175.26 cm) 1 MDM: 10:30 Patient medically screened. [facility] 11:54 Data reviewed: vital signs, nurses notes. Counseling: I had a detailed discussion with [facility] the patient and/or guardian regarding: the historical points, exam findings, and any diagnostic results supporting the discharge/admit diagnosis, the need for outpatient follow up, to return to the emergency department if symptoms worsen or persist or if there are any questions or concerns that arise at home. 04/06 10:31 Order name: [facility]; Complete Time: 11:55 [facility] EC:34 Rate is 65 beats/min. Rhythm is regular. QRS [place] is Normal. [place] interval is normal. QRS [facility] interval is normal. QT interval is normal. No Q waves. T waves are Normal. No ST changes noted. Administered Medications: No medications were administered Disposition: 16:51 Co-signature as Attending Physician, Jose Lyn MD. rn Disposition: 04/06/19 11:54 Discharged to Home. Impression: Person with feared health complaint in whom no diagnosis is made. - Condition is Stable. - Medication Reconciliation Form, Thank You Letter, Antibiotic Education, Prescription Opioid Use form. - Follow up: Private Physician; When: 2 - 3 days; Reason: Recheck today's complaints, Continuance of care, Re-evaluation by your physician. Signatures: Dispatcher [employer] Montserrat Zuñiga RN RN aj1 Adolfo Bah PA PA jmm Munoz, Edgar, EVENT COORDINATOR [employer]ETING [employer] SAL[employer] EVENT COORDINATOR [employer]ETING [employer] SALES Jose Christianson MD MD commercial intern: (The following items were deleted from the chart) 12:25 11:54 04/06/2019 11:54 Discharged to Home. Impression: Person with feared health em complaint in whom no diagnosis is made. Condition is Stable. Forms are Medication Reconciliation Form, Thank You Letter, Antibiotic Education, Prescription Opioid Use. Follow up: Private Physician; When: 2 - 3 days; Reason: Recheck today's complaints, Continuance of care, Re-evaluation by your physician. capri
--- NOTE | 2019-04-07 10:02 | EKG ---
Test Date: 2019-04-06 Test Time: 10:28:45 Slide Machine Tender: MEASUREMENT RESULTS: Intervals: Rate: 65 HI: 168 QRSD: 92 QT: 428 QTc: 445 [place]: P: 83 HI: 168 QRS: 69 T: 86 INTERPRETIVE STATEMENTS: Normal sinus rhythm Normal ECG No previous ECG available for comparison Electronically Signed On 04-07-19 10:01:05 CDT by Chad Melendez
== END 2019-04-06 12:25 | disposition home or self-care (01) ==
LOC: ER 10:09
DX: Z71.1 Person with feared health complaint in whom no diagnosis is made (principal); I12.0 Hypertensive chronic kidney disease with stage 5 chronic kidney disease or end stage renal disease; N18.6 End stage renal disease; Z99.2 Dependence on renal dialysis; Z94.0 Kidney transplant status; Z94.4 Liver transplant status
CPT/HCPCS: 36415; 80048; 93005; 99284

== ENCOUNTER 2022-02-26 12:15 | Inpatient (IN) | payer OTHER ==
--- OUTSIDE RECORDS SUMMARY | 2022-02-26 12:18 | XMS REPORT | Continuity of Care Document ---
:1965 Author Organization [facility] t Address [address] [place] [id number] Care Team Providers Name Role Phone Davida HUYNH Attending Clinician Unavailable Paulette BEE Attending Clinician Unavailable Paulette BEE Admitting Clinician Unavailable Problems This patient has no known problems. Allergies, Adverse Reactions, Alerts This patient has no known allergies or adverse reactions. Medications This patient has no known medications. Procedures This patient has no known procedures. Results Test Description Test Time Test Comments [facility], 2018-[facility]-10 Referring: FINAL REPORT PATIENT WITHOUT IV 12:04:00 Dr. Vero Mendoza ID: [id number] MRV of CONTRAST the pelvic veins and the IVC, 10 [...] addition, other various MR a tiny including dvmj-ih-awkmzp images, as well as 3-D turbo spin-echo [...] widely patent. Some nonobstructive atherosclerosis is seen. Multi Care Technician dimension of the left and the right [...] are patent with no venous thrombosis identified. Multi Care Technician dimension of the left and the right [...] also patent with no venous thrombosis identified. Multi Care Technician dimensions of the left and right external [...] the assessment of extravascular structures. Signed: [facility] Ver[facility] Date/Time: 04/10/2018 12:04:22 Reading Location: [facility] B1 [id number] Cardiology MRI , MRA ABDOMEN, 2018-04-10 Referring: FINAL REPORT PATIENT WITHOUT CONTRAST 12:04:00 Dr. Vero Mendoza ID: [id number] MRV of the pelvic veins and the [...] addition, other various MR a tiny including [id number]-id-izvzrh images, as well as 3-D turbo spin-echo [...] widely patent. Some nonobstructive atherosclerosis is seen. Multi Care Technician dimension of the left and the right [...] are patent with no venous thrombosis identified. Multi Care Technician dimension of the left and the right [...] also patent with no venous thrombosis identified. Multi Care Technician dimensions of the left and right external [...] the assessment of extravascular structures. Signed: Gaurang Valiente MDReport Verified Date/Time: 04/10/2018 12:04:22 Reading Location: [place] [address] Cardiology MRI TYPING 2017-08-29 11:31:00 Test Item Value Reference Range Interpretation Comme nts HLA RESULT (BEAKER) (test code = 2311) See Scanned Report HLA-A AG1 (BEAKER) (test code = 2521) HLA-A AG2 (BEAKER) (test code = 2522) HLA-B AG1 (BEAKER) (test code = 2523) HLA-B AG2 (BEAKER) (test code = 2524) HLA-C AG1 (BEAKER) (test code = 2525) HLA-C AG2 (BEAKER) (test code = 2526) HLA-DR AG1 (BEAKER) (test code = 2518) HLA-DR AG2 (BEAKER) (test code = 2519) HLA-DQ AG1 (BEAKER) (test code = 2514) HLA-DQ AG2 (BEAKER) (test code = 0105) HLA-DRW (BEAKER) (test code = 3483) FLOW PRA CLASS I AND [id number] 11:44:00 Test Item Value Reference Range Interpretation Comments DATE OF SERUM (BEAKER) 11011015 (test code = 2289) SERUM # (BEAKER) (test 380281 code = 2290) FLOW PRA CLASS I AND II See Scanned Report (test code = 2421) CREATININE [id number] 16:31:00 Test Item Value Reference Range Interpretation Comments CREATININE CLEARANCE 19.0 mL/min 70.0-140.0 L (BENICOLA) (test code = 357) VOLUME, TOTAL (BEAKER) 1800 ml (test code = 1457) CREATININE URINE (BRYAN) 32.2 mg/dL (test code = 375) [id number] Rakesh Kee M.D. ([facility]) (test code = (electonic 2613) signature) 24 hour urine collection for creatinine clearance and protein.CREATININE 2017-07-05 14:33:00 Test Item Value Reference Range Interpretation Comments CREATININE (BRYAN) 2.48 mg/dL 0.57-1.25 H (test code = 358) EGFR (BRYAN) (test 28 mL/min/1.73 ESTIMA LEI GFR IS code = 1092) sq m NOT ACCURATE CREATININE CLEARANCE IN PREDICTING GLOMERULAR FILTRATION RATE . ESTIMATED GFR I S NOT APPLICABLE FOR DIALYSIS PATIEN TS. 24 hour urine collection for creatinine clearance and protein.VARICELLA ZOSTER ANTIBODY, [id number] 07:07:00 Test Item Value Reference Range Interpretation Comments VARICELLA ZOSTER IGG (AL) (BEAKER) 2.5 Al (test code = 3197) VARICELLA ZOSTER RESULT INTERPRETATIONS: <=0.8 Al Nonreactive: Presumed non-immune to VZV 0.9-1.0 Al Equivocal >=1.1 Al Reactive: Presumed immune to VZVCYTOMEGALOVIRUS ANTIBODY, [id number] 07:01:00 Test Item Value Reference Range Interpretation Comments CYTOMEGALOVIRUS IGG ANTIBODY Positive (BEAKER) (test code = 790) CYTOMEGALOVIRUS ANTIBODY, [id number] 07:01:00 Test Item Value Reference Range Interpretation Comments CYTOMEGALOVIRUS IGM ANTIBODY Negative (BEAKER) (test code = 816) EBV-VCA ANTIBODY, [id number] 07:01:00 Test Item Value Reference Range Interpretation Comments HOANG-SHARP VCA IGG (BEAKER) (test Positive code = 983) EBV-VCA ANTIBODY, [id number] 07:01:00 Test Item Value Reference Range Interpretation Comments HOANG-SHARP VCA IGM (BEAKER) (test Negative code = 984) MHA - [id number] 04:29:00 Test Item Value Reference Range Interpretation Comments MHA-TP (BEAKER) (test code = Nonreactive 1454) RPR [id number] 04:29:00 Test Item Value Reference Range Interpretation Comments RPR TITER (BEAKER) (test code = 1485) :8 [id number] 04:29:00 Test Item Value Reference Range Interpretation Comments RPR SCREEN (BEAKER) (test code = Reactive Nonreactive A 420) URINE [id number] 14:53:00 Test Item Value Reference Range Interpretation Comments CULTURE (BEAKER) (test code = 1095) No growth HIV-1 ANTIGEN WITH HIV-1/2 [id number] 15:17:00 Test Item Value Reference Range Interpretation Comments HIV-1 ANTIGEN WITH HIV 1\\T\\2 Nonreactive Nonreactive ANTIBODY (2) (BEAKER) (test code = 2586) RAD, CHEST, 2 [id number] 13:04:00Referring: Dr. Vero Olsen for Exam:- >Pre kidney transplant evaluation.FINAL REPORT Two views chest compared to July 19, 2005 Discussion: Old right-sided rib fractures are noted. Cardio pulmonary appearance unremarkable. No effusion or pneumothorax. Signed: Vipin Baldwin Verified Date/Time: 06/21/2017 13:04:47 Reading Location: [facility] B1 [id number] Consult Reading Room HEMOGLOBIN [id number] 12:22:00 Test Item Value Reference Range Interpretation Comments HEMOGLOBIN A1C (BEAKER) (test code = 7.8 % 4.3-6.1 H 368) PTH, [id number] 11:26:00 Test Item Value Reference Range Interpretation Comments PARATHYROID HORMONE INTACT 582.8 pg/mL 8.5-72.5 H (BEAKER) (test code = 577) HEPATITIS B SURFACE [id number] 11:11:00 Test Item Value Reference Range Interpretation Comments HEPATITIS B SURFACE ANTIBODY < mIU/mL <8.0 (BEAKER) (test code = 647) HEPATITIS B SURFACE [id number] 10:57:00 Test Item Value Reference Range Interpretation Comments HEPATITIS B SURFACE ANTIGEN (2) Nonreactive Nonreactive (BEAKER) (test code = 2585) HEPATITIS B CORE ANTIBODY, [id number] 10:57:00 Test Item Value Reference Range Interpretation Comments HEPATITIS B CORE IGM ANTIBODY Nonreactive Nonreactive (BEAKER) (test code = 645) HEPATITIS C [id number] 10:57:00 Test Item Value Reference Range Interpretation Comments HEPATITIS C ANTIBODY (BEAKER) Nonreactive Nonreactive (test code = 367) [id number] 10:57:00 Test Item Value Reference Range Interpretation Comments PROSTATE SPECIFIC ANTIGEN (BEAKER) 0.2 ng/mL 0.0-4.0 (test code = 844) COMPREHENSIVE METABOLIC [id number] 10:05:00 Test Item Value Reference Range Interpretation Comments TOTAL PROTEIN 6.8 gm/dL 6.0-8.3 (BEAKER) (test code = 770) ALBUMIN (BEAKER) 3.9 g/dL 3.5-5.0 (test code = 1145) ALKALINE PHOSPHATASE 76 U/L 40-150 (BEAKER) (test code = 346) BILIRUBIN TOTAL 0.3 mg/dL 0.2-1.2 (BEAKER) (test code = 377) SODIUM (BEAKER) (test 136 meq/L 136-145 code = 381) POTASSIUM (BEAKER) 5.5 meq/L 3.5-5.1 H (test code = 379) CHLORIDE (BEAKER) 116 meq/L 98-107 H (test code = 382) CO2 (BEAKER) (test 15 meq/L 22-29 L code = 355) BLOOD UREA NITROGEN 53 mg/dL 7-21 H (BEAKER) (test code = 354) CREATININE (BEAKER) 2.34 mg/dL 0.57-1.25 H (test code = 358) GLUCOSE RANDOM 96 mg/dL 70-105 (BEAKER) (test code = 652) CALCIUM (BEAKER) 9.2 mg/dL 8.4-10.2 (test code = 697) AST (SGOT) (BEAKER) 24 U/L 5-34 (test code = 353) ALT (SGPT) (BEAKER) 23 U/L 6-55 (test code = 347) EGFR (BEAKER) (test 29 mL/min/1.73 ESTIMA LEI GFR IS code = 1092) sq m NOT ACCURATE CREATININE CLEARANCE IN PREDICTING GLOMERULAR FILTRATION RATE . ESTIMATED GFR I S NOT APPLICABLE FOR DIALYSIS PATIEN TS. URIC [id number] 09:57:00 Test Item Value Reference Range Interpretation Comments URIC ACID (BEAKER) (test code = 7.1 mg/dL 2.6-7.2 773) [id number] 09:57:00 Test Item Value Reference Range Interpretation Comments PHOSPHORUS (BEAKER) (test code = 4.7 mg/dL 2.3-4.7 604) LIPID [id number] 09:57:00 Test Item Value Reference Range Interpretation Comments TRIGLYCERIDES (BEAKER) (test code = 197 mg/dL 540) CHOLESTEROL (BEAKER) (test code = 183 mg/dL 631) HDL CHOLESTEROL (BEAKER) (test code 29 mg/dL = 976) LDL CHOLESTEROL CALCULATED (BEAKER) 115 mg/dL (test code = 633) Triglyceride Reference Range: Low Risk <150 Borderline 150-199 High Risk 200-499 Very High Risk >=500Cholesterol Reference Range: Low Risk <200 Borderline 200-239 High Risk >240HDL Cholesterol Reference Range: Low Risk >=60 High Risk <40LDL Cholesterol Reference Range: Optimal <100 Near Optimal 100-129 Borderline 130-159 High 160-189 Very High >=190GAMMA GLUTAMYL TRANSFERASE (GGT)2017-06-21 09:57:00 Test Item Value Reference Range Interpretation Comments GAMMA GLUTAMYL TRANSFERASE (BEAKER) 24 U/L 9-64 (test code = 364) LACTATE DEHYDROGENASE (LDH)2017-06-21 09:57:00 Test Item Value Reference Range Interpretation Comments LACTATE DEHYDROGENASE (BEAKER) (test 148 U/L 125-220 code = 635) URINALYSIS W/ [id number] 09:23:00 Test Item Value Reference Range Interpretation Comments COLOR (BEAKER) (test code = 470) Light Yellow CLARITY (BEAKER) (test code = Clear 469) SPECIFIC GRAVITY UA (BEAKER) 1.008 1.001-1.035 (test code = 468) PH UA (BEAKER) (test code = 467) 5.5 5.0-8.0 PROTEIN UA (BEAKER) (test code = 200 mg/dL Negative A 464) GLUCOSE UA (BEAKER) (test code = Negative Negative 365) KETONES UA (BEAKER) (test code = Negative Negative 371) BILIRUBIN UA (BEAKER) (test code Negative Negative = 462) BLOOD UA (BEAKER) (test code = Trace Negative A 461) NITRITE UA (BEAKER) (test code = Negative Negative 465) LEUKOCYTE ESTERASE UA (BEAKER) Negative Negative (test code = 466) UROBILINOGEN UA (BEAKER) (test 0.2 mg/dL 0.2-1.0 code = 463) RBC UA (BEAKER) (test code = 1 /HPF 519) WBC UA (BEAKER) (test code = 1 /HPF 520) SQUAMOUS EPITHELIAL (BEAKER) < /HPF (test code = 516) SOURCE(BEAKER) (test code = 2795) OCCULT BLOOD, [id number] 19:03:00 Test Item Value Reference Range Interpretation Comments FECAL OCCULT BLOOD (BEAKER) (test Negative Negative code = 618) OCCULT BLOOD, [id number] 19:03:00 Test Item Value Reference Range Interpretation Comments FECAL OCCULT BLOOD (BEAKER) (test Negative Negative code = 618) TISSUE [id number] 18:04:00Surgical Pathology Report Case: [id number] --- Authorizing Provider: Elal Bee MD Ordering Provider: Ella Bee MD [facility] OP Collected: 01/20/2017 1404 Pathologist: Addison Esposito MD Received: 01/20/2017 1409 Specimen: Kidney, Left KIDNEY ALLOGRAFT, NEEDLE BIOPSIES- [...] SEE COMMENT Signing Pathologist Direct Phone Line: [phone] renal biopsy shows marked chronic changes. No [...] results were discussed with Dr. Villanueva on 01/25/2017.69969, 30650 x3, 79848, 73117 x7, [id number] renal transplant in 2003 with slowly rising serum creatinine.Transplant kidney biopsyThe [...] mild mesangial hypercellularity and segmental sclerosis. No endocapillary hypercellularity, crescents or thrombi are seen. No glomerulitis [...] aggregates are present. Dystrophic calcifications are present. Non- atrophic proximal tubules are focally ectatic with loss of brush borders. Vessels: Interlobular arteries show moderate intimal sclerosis and thickening. There is diffuse arteriolosclerosis. Special stains: Johnathan trichrome, PAS and Lovett silver stains were necessary for evaluation of this biopsy and showed expected staining patterns of internal control tissue matrix structures.Immunofluorescence:Histology: H&E-stained sections show 6 non- obsolescent glomeruli and 9 obsolescent glomeruli. Indirect immunofluorescence:C4d staining negative in peritubular capillaries. Glomeruli show peripheral staining of the capillary loops. Direct Immunofluorescence fin dings (performed on paraffin embedded tissue)The glomeruli with open capillary loops show scattered granular staining of peripheral capillary loops, positive for IgG, IgA, IgM, C3, C1q, kappa and lambda. In [...] focally upto 845 nm (normal adult male average =230 - 430 nm; Monique Black,Arch Pathol Lab Med 133:224-232). There is wrinkling of glomerular basement me mbranes. No subendothelial rarefaction is noted. Segmental double contours are seen with mesangial interpositioning. Focal hyalinosis is present. There are rare scattered subepithelial electron dense deposits. Podocyte foot processes are segmentally preserved. Peritubular capillaries show normal 1-3 lamellations. .CBC WITH PLATELET COUNT + MANUAL [id number] 10:07:00 Test Item Value Reference Range Interpretation Comments WHITE BLOOD CELL COUNT (BEAKER) 8.4 K/ L 4.0-10.0 (test code = 775) RED BLOOD CELL COUNT (BEAKER) 2.76 M/ L 4.20-5.80 L (test code = 761) HEMOGLOBIN (BEAKER) (test code = 9.5 GM/DL 13.0-16.8 L 410) HEMATOCRIT (BEAKER) (test code = 29.2 % 40.0-50.0 L 411) MEAN CORPUSCULAR VOLUME (BEAKER) 106.0 fL 82.0-98.0 H (test code = 753) MEAN CORPUSCULAR HEMOGLOBIN 34.4 pg 27.0-33.0 H (BEAKER) (test code = 751) MEAN CORPUSCULAR HEMOGLOBIN CONC 32.5 GM/DL 32.0-36.0 (BEAKER) (test code = 752) RED CELL DISTRIBUTION WIDTH 13.5 % 10.3-14.2 (BEAKER) (test code = 412) PLATELET COUNT (BEAKER) (test 224 K/CU MM 150-430 code = 756) MEAN PLATELET VOLUME (BEAKER) 7.0 fL 6.5-10.5 (test code = 754) NUCLEATED RED BLOOD CELLS 0 /100 WBC 0-0 (BEAKER) (test code = 413) NEUTROPHILS RELATIVE PERCENT 51 % (BEAKER) (test code = 429) LYMPHOCYTES RELATIVE PERCENT 35 % (BEAKER) (test code = 430) MONOCYTES RELATIVE PERCENT 11 % (BEAKER) (test code = 431) EOSINOPHILS RELATIVE PERCENT 3 % (BEAKER) (test code = 432) BASOPHILS RELATIVE PERCENT 0 % (BEAKER) (test code = 437) NEUTROPHILS ABSOLUTE COUNT 4.31 K/ L 1.80-8.00 (BEAKER) (test code = 670) LYMPHOCYTES ABSOLUTE COUNT 2.92 K/ L 1.48-4.50 (BEAKER) (test code = 414) MONOCYTES ABSOLUTE COUNT (BEAKER) 0.91 K/ L 0.00-1.30 (test code = 415) EOSINOPHILS ABSOLUTE COUNT 0.24 K/ L 0.00-0.50 (BEAKER) (test code = 416) BASOPHILS ABSOLUTE COUNT (BEAKER) 0.03 K/ L 0.00-0.20 (test code = 417) 0.00(MANUAL DIFFERENTIAL)2017-01-20 10:07:00 Test Item Value Reference Range Interpretation Comments TOTAL COUNTED (BEAKER) (test code = 1351) WBC MORPHOLOGY (BEAKER) (test code = Normal 487) PLT MORPHOLOGY (BEAKER) (test code = Normal 486) MACROCYTES (BEAKER) (test code = 964) 1+ few COMPREHENSIVE METABOLIC [id number] 09:02:00 Test Item Value Reference Range Interpretation Comments TOTAL PROTEIN 6.3 gm/dL 6.0-8.3 Specimen sligh tly (BEAKER) (test code = hemoly zed 770) ALBUMIN (BEAKER) 3.3 g/dL 3.5-5.0 L Specimen sl ightly (test code = 1145) hemolyzed ALKALINE PHOSPHATASE 86 U/L 40-150 (BEAKER) (test code = 346) BILIRUBIN TOTAL 0.2 mg/dL 0.2-1.2 Specimen sli ghtly (BEAKER) (test code = hemoly zed 377) SODIUM (BEAKER) (test 138 meq/L 136-145 code = 381) POTASSIUM (BEAKER) 5.3 meq/L 3.5-5.1 H Specimen slightly (test code = 379) hemolyzed CHLORIDE (BEAKER) 113 meq/L 98-107 H (test code = 382) CO2 (BEAKER) (test 16 meq/L 22-29 L code = 355) BLOOD UREA NITROGEN 57 mg/dL 7-21 H (BEAKER) (test code = 354) CREATININE (BEAKER) 2.37 mg/dL 0.57-1.25 H Specimen slightly (test code = 358) hemolyzed GLUCOSE RANDOM 138 mg/dL 70-105 H (BEAKER) (test code = 652) CALCIUM (BEAKER) 9.2 mg/dL 8.4-10.2 (test code = 697) AST (SGOT) (BEAKER) 33 U/L 5-34 Specimen slightly (test code = 353) hemolyzed ALT (SGPT) (BEAKER) 32 U/L 6-55 Specimen slightly (test code = 347) hemolyzed EGFR (BEAKER) (test 29 mL/min/1.73 ESTIMA LEI GFR IS code = 1092) sq m NOT ACCURATE CREATININE CLEARANCE IN PREDICTING GLOMERULAR FILTRATION RATE . ESTIMATED GFR I S NOT APPLICABLE FOR DIALYSIS PATIEN TS. [id number] 08:35:00 Test Item Value Reference Range Interpretation Comments PROTIME (BEAKER) (test code = 13.5 seconds 11.7-14.7 759) INR (BEAKER) (test code = 370) 1.0 <=5.9 PARTIAL THROMBOPLASTIN TIME 31.3 seconds 22.5-36.0 (BEAKER) (test code = 760) RECOMMENDED COUMADIN/WARFARIN INR THERAPY RANGESSTANDARD DOSE: 2.0 - 3.0 Includes: PROPHYLAXIS forvenous thrombosis, systemic embolization; TREATMENT for venous thrombosis and/or pulmonary embolus.HIGH RISK: Target INR is 2.5-3.5 for patients with mechanical heart valves.
[2022-02-26 12:33] LABS: Absolute Lymphocytes (CBC) 0.8 K/uL (0.7-4.9); Hematocrit 25.9 % (39.6-49.0); Lymphocytes % 9.7 % (15.3-44.8); MPV 7.6 fL (7.6-11.3); RBC Red Blood Cell Count 2.49 M/uL (4.33-5.43)
[2022-02-26] MEDS ORDERED: CEFTRIAXONE 1000 MG/VIAL ONE (12:37)
[2022-02-26 12:39] LABS: Protime INR 1.3
[2022-02-26 13:05] LABS: Albumin 3.6 g/dL (3.4-5.0); Bilirubin Total 1.2 mg/dL (0.2-1.0); Potassium 5.2 mmol/L (3.5-5.1); Protein, Total 7.6 g/dL (6.4-8.2)
--- NOTE | 2022-02-26 13:22 | RAD REPORT ---
EXAM DESCRIPTION: RAD - Chest Single View - 02/26/2022 1:02 pm CLINICAL HISTORY: DYSPNEA Chest pain. COMPARISON: <Comparisons> FINDINGS: Portable technique limits examination quality. Prominent emphysema is noted. Ptsu-zu-sfgrfoab opacity in the left lung base is noted compatible with pneumonia. The heart is normal in size. No displaced fractures. IMPRESSION: Mild to moderate left lower lobe pneumonia.
--- NOTE | 2022-02-26 13:29 | EDPHYS ---
Physician Documentation [facility] Name: Mumtaz Clark Age: 56 yrs Sex: Male : 1965 Arrival Date: 02/26/2022 Time: 12:18 Bed 4 Private MD: ED Physician Maranda Rodarte HPI: 02/26 12:42 This 56 yrs old Male presents to ER via EMS with complaints of Cough, Fever. jr8 12:42 The patient or guardian reports cough, that is intermittent, described as mild, with jr8 productive sputum, that is yellow. Onset: The symptoms/episode began/occurred acutely, yesterday. Severity of symptoms: At their worst the symptoms were mild, in the emergency department the symptoms are unchanged. Modifying factors: The symptoms are alleviated by nothing, the symptoms are aggravated by nothing. Associated signs and symptoms: Pertinent positives: fever. The patient has not experienced similar symptoms in the past. The patient has not recently seen a physician. Historical: - Allergies: 12:30 Hectorol; vg1 - Home Meds: 12:30 metoprolol tartrate 50 mg Oral tab 1 tab 2 times per day [Active]; Renvela oral vg1 [Active]; Nifedipine Oral [Active]; tacrolimus oral [Active]; Wanda-Lelia oral [Active]; 17:20 lisinopril 20 mg Oral tab 1 tab once daily [Active]; prednisone 5 mg/5 mL Oral soln melchor once daily [Active]; tacrolimus 2 mg Oral cap every 12 hours for Prevention of Kidney Transplant Rejection, Prevention of Liver Transplant Rejection [Active]; - PMHx: 12:30 Dialysis; ESRD; Hypertension; kidney transplant; liver transplant; neuropathy; vg1 - Immunization history:: Client reports receiving the 2nd dose of the Covid vaccine. - Social history:: Smoking status: Patient denies any tobacco usage or history of. ROS: 12:42 Eyes: Negative for injury, pain, redness, and discharge, ENT: Negative for injury, jr8 pain, and discharge, Neck: Negative for injury, pain, and swelling, Cardiovascular: Negative for chest pain, palpitations, and edema, Abdomen/GI: Negative for abdominal pain, nausea, vomiting, diarrhea, and constipation, Back: Negative for injury and pain, MS/Extremity: Negative for injury and deformity, Skin: Negative for injury, rash, and discoloration, Neuro: Negative for headache, weakness, numbness, tingling, and seizure. 12:42 Constitutional: Positive for fever. 12:42 Respiratory: Positive for cough, shortness of breath. Exam: 12:42 Constitutional: This is a well developed, well nourished patient who is awake, alert, jr8 and in no acute distress. Eyes: Pupils equal round and reactive to light, extra-ocular motions intact. Lids and lashes normal. Conjunctiva and sclera are non-icteric and not injected. Cornea within normal limits. Periorbital areas with no swelling, redness, or edema. ENT: Nares patent. No nasal discharge, no septal abnormalities noted. Tympanic membranes are normal and external auditory canals are clear. Oropharynx with no redness, swelling, or masses, exudates, or evidence of obstruction, uvula midline. Mucous membranes moist. Neck: Trachea midline, no thyromegaly or masses palpated, and no cervical lymphadenopathy. Supple, full range of motion without nuchal rigidity, or vertebral point tenderness. No Meningismus. Cardiovascular: Regular rate and rhythm with a normal S1 and S2. No gallops, murmurs, or rubs. Normal PMI, no JVD. No pulse deficits. Respiratory: Lungs have equal breath sounds bilaterally, clear to auscultation and percussion. No rales, rhonchi or wheezes noted. Mild tachypnea present without retractions or nasal flaring. Abdomen/GI: Soft, non-tender, with normal bowel sounds. No distension or tympany. No guarding or rebound. No evidence of tenderness throughout. Back: No spinal tenderness. No costovertebral tenderness. Full range of motion. Skin: Warm, dry with normal turgor. Normal color with no rashes, no lesions, and no evidence of cellulitis. MS/ Extremity: Pulses equal, no cyanosis. Neurovascular intact. Full, normal range of motion. Neuro: Awake and alert, GCS 15, oriented to person, place, time, and situation. Cranial nerves II-XII grossly intact. Motor strength 5/5 in all extremities. Sensory grossly intact. 12:50 ECG was reviewed by the Attending Physician. [facility] Vital Signs: 12:28 BP 153 / 86; Pulse 81; Resp 22; Temp 100.0; Pulse Ox 97% on 1 lpm NC; Weight 46.5 kg; vg1 Height 5 ft. 6 in. (167.64 cm); Pain 0/10; 12:28 Body Mass Index 16.55 (46.50 kg, 167.64 cm) vg1 MDM: 12:18 Patient medically screened. [facility] 13:28 Data reviewed: vital signs, nurses notes, lab test result(s), EKG, radiologic studies, jr8 plain films. Data interpreted: Pulse oximetry: on 2L(s) per nasal canula, is 97 %. Interpretation: normal. Counseling: I had a detailed discussion with the patient and/or guardian regarding: the historical points, exam findings, and any diagnostic results supporting the discharge/admit diagnosis, lab results, radiology results, the need for further work-up and treatment in the hospital. 13:34 ED course: Patient doing well. Hemodynamically stable. Non hypotensive. ESRD dialysis jr8 patient. Fluids withheld at this time. 02/26 12:19 Order name: Blood Culture Adult (2) [facility] 02/26 12:19 Order name: CBC with Diff; Complete Time: 12:[address] [facility] 02/26 12:19 Order name: CMP; Complete Time: 13:[address] [facility] 02/26 12:19 Order name: Lactate; Complete Time: 13:[address] [facility] 02/26 12:19 Order name: Protime (+inr); Complete Time: 12:[address] [facility] 02/26 12:19 Order name: Ptt, Activated; Complete Time: 12:42 02/26 12:19 Order name: Chest Single View XRAY; Complete Time: 13:[address] [facility] 02/26 12:19 Order name: Accucheck; Complete Time: 12:[address] [facility] 02/26 12:19 Order name: Cardiac monitoring; Complete Time: 12:[address] [facility] 02/26 12:19 Order name: EKG - Nurse/Tech; Complete Time: 12:[address] [facility] 02/26 12:19 Order name: SARS-COV-2 RT PCR (Document "Date of Onset" if Symptomatic); Complete Time: 13:44 02/26 12:19 Order name: Flu; Complete Time: 13:[address] [facility] 02/26 12:19 Order name: IV Saline Lock - Large Bore; Complete Time: 12:35 02/26 12:19 Order name: Labs collected and sent; Complete Time: 12:35 jr8 02/26 12:19 Order name: O2 Per Protocol; Complete Time: 12:35 jr8 02/26 12:19 Order name: O2 Sat Monitoring; Complete Time: :35 EC:50 Rate is 77 beats/min. Rhythm is regular, Normal Sinus Rhythm. QRS [place] is Normal. MS jr8 interval is normal at 182 msec. QRS interval is normal at 90 msec. QT interval is normal at 424 msec. No Q waves. T waves are Normal. No ST changes noted. Clinical impression: LVH. Interpreted by me. Reviewed by me. Administered Medications: 12:34 Drug: Rocephin (cefTRIAXone) 1 grams Route: IV; Rate: calculated rate; Site: left melchor antecubital; 13:30 Follow up: Response: No adverse reaction; IV Status: Completed infusion vg1 13:48 Drug: LevaQUIN (levofloxacin) 750 mg Volume: 150 ml; Route: IVPB; Infused Over: 90 vg1 mins; Site: left antecubital; 14:45 Follow up: IV Status: Completed infusion; IV Intake: 150ml vg1 Disposition Summary: 02/26/22 13:29 Hospitalization Ordered Hospitalization Status: Inpatient Admission jr8 Provider: Oniel Aggarwal jr Location: Telemetry/MedSur (Inpatient) [facility] Condition: Stable jr Problem: new jr8 Symptoms: have improved jr8 Bed/Room Type: Standard [facility] Room Assignment: 221(02/26/22 16:34) Diagnosis - Pneumonia, unspecified organism jr8 - Sepsis, unspecified organism jr8 Forms: - Medication Reconciliation Form jr8 - SBAR form jr8 Signatures: Dispatcher [employer] Leah Ford RN RN dw Marshall Thrasher PA PA jr8 Danika Mcgee RN RN vg1 Daniela Escalona RN RN Corrections: (The following items were deleted from the chart) 16:34 13:29 jr8 dw
--- NOTE | 2022-02-26 13:29 | ER ---
Nurse's Notes [facility] Name: Mumtaz Clark Age: 56 yrs Sex: Male : 1965 Arrival Date: 02/26/2022 Time: 12:18 Bed 4 Private MD: Diagnosis: Pneumonia, unspecified organism;Sepsis, unspecified organism Presentation: 02/26 12:28 Chief complaint: EMS states: Fever and weakness x 2 days; pt reports productive cough vg1 and difficulty breathing; pt received Tylenol 1 g PO x1 due to temperature of 102.1 oral; pt placed on 2 L NC; pt denies ABD pain or Chest pain. Coronavirus screen: Vaccine status: Patient reports receiving the 2nd dose of the covid vaccine. Client denies travel out of the [place] in the last 14 days. Ebola Screen: Patient denies exposure to infectious person. Patient denies travel to an Ebola-affected area in the 21 days before illness onset. Initial Sepsis Screen: Does the patient meet any 2 criteria? RR > 20 per min. No. Patient's initial sepsis screen is negative. Does the patient have a suspected source of infection? No. Patient's initial sepsis screen is negative. Risk Assessment: Do you want to hurt yourself or someone else? Patient reports no desire to harm self or others. Onset of symptoms was February 24, 2022. 12:28 Method Of Arrival: EMS: [facility] vg1 12:28 Acuity: RM 3 vg1 Triage Assessment: 12:30 General: Appears uncomfortable, Behavior is calm, cooperative. Pain: Denies pain. EENT: vg1 No signs and/or symptoms were reported regarding the EENT system. Neuro: [place] Agitation-Sedation Scale (RASS): 0 - Alert and Calm Level of Consciousness is awake, alert, obeys commands, Oriented to person, place, time, situation. Cardiovascular: Patient's skin is warm and dry. Respiratory: Airway is patent Respiratory effort is even, labored, Respiratory pattern is tachypnea. GI: Abdomen is flat, Patient currently denies abdominal pain. : Reports anuric. Derm: Skin is intact, Skin is dry, Skin temperature is hot. Musculoskeletal: Circulation, motion, and sensation intact. Historical: - Allergies: 12:30 Hectorol; vg1 - Home Meds: 12:30 metoprolol tartrate 50 mg Oral tab 1 tab 2 times per day [Active]; Renvela oral vg1 [Active]; Nifedipine Oral [Active]; tacrolimus oral [Active]; Wanda-Lelia oral [Active]; 17:20 lisinopril 20 mg Oral tab 1 tab once daily [Active]; prednisone 5 mg/5 mL Oral soln melchor once daily [Active]; tacrolimus 2 mg Oral cap every 12 hours for Prevention of Kidney Transplant Rejection, Prevention of Liver Transplant Rejection [Active]; - PMHx: 12:30 Dialysis; ESRD; Hypertension; kidney transplant; liver transplant; neuropathy; vg1 - Immunization history:: Client reports receiving the 2nd dose of the Covid vaccine. - Social history:: Smoking status: Patient denies any tobacco usage or history of. Screenin:36 Abuse screen: Denies threats or abuse. Nutritional screening: No deficits noted. vg1 Tuberculosis screening: No symptoms or risk factors identified. Fall Risk No fall in past 12 months (0 pts). No secondary diagnosis (0 pts). IV access (20 points). Ambulatory Aid- None/Bed Rest/Nurse Assist (0 pts). Gait- Weak (10 pts.). Mental Status- Oriented to own ability (0 pts). Total Ruiz Fall Scale indicates Low Risk Score (25-44 pts). Fall prevention measures have been instituted. Side Rails Up X 2 Placed close to Nursing Station 1:1 attendant Assigned to Pt. As available Patient and Family Educated on Fall Prevention Program and strategies. Assessment: 12:35 Reassessment: SEE TRIAGE. vg1 13:35 Reassessment: Patient appears in no apparent distress at this time. No changes from vg1 previously documented assessment. Patient and/or family updated on plan of care and expected duration. Pain level reassessed. Patient is alert, oriented x 3, equal unlabored respirations, skin warm/dry/pink. 15:50 Reassessment: Patient appears in no apparent distress at this time. Patient and/or vg1 family updated on plan of care and expected duration. Pain level reassessed. Patient is alert, oriented x 3, equal unlabored respirations, skin warm/dry/pink. pt stated "I want to go home; this bed is uncomfortable, no one cares about me and I'm feeing better" Pt took EKG leads off stating "I want this off and call the doctor to let me go home". Provider notified. Vital Signs: 12:28 BP 153 / 86; Pulse 81; Resp 22; Temp 100.0; Pulse Ox 97% on 1 lpm NC; Weight 46.5 kg; vg1 Height 5 ft. 6 in. (167.64 cm); Pain 0/10; 12:28 Body Mass Index 16.55 (46.50 kg, 167.64 cm) vg1 ED Course: 12:18 Patient arrived in ED. em1 12:18 Marshall Thrasher PA is PHCP. jr8 12:18 Maranda Rodarte MD is Attending Physician. jr8 12:28 Inserted saline lock: 20 gauge in left antecubital area, using aseptic technique. Blood tp1 collected. 12:29 Daniela Escalona, RN is Primary Nurse. melchor 12:29 Placed in gown. Bed in low position. Call light in reach. Side rails up X2. tp1 12:30 Triage completed. vg1 12:30 Arm band placed on. vg1 13:04 Chest Single View XRAY In Process Unspecified. EDMS 13:28 Oniel Aggarwal is Hospitalizing Provider. jr8 17:20 No provider procedures requiring assistance completed. melchor 17:42 Patient admitted, IV remains in place. vg1 Administered Medications: 12:34 Drug: Rocephin (cefTRIAXone) 1 grams Route: IV; Rate: calculated rate; Site: left melchor antecubital; 13:30 Follow up: Response: No adverse reaction; IV Status: Completed infusion vg1 13:48 Drug: LevaQUIN (levofloxacin) 750 mg Volume: 150 ml; Route: IVPB; Infused Over: 90 vg1 mins; Site: left antecubital; 14:45 Follow up: IV Status: Completed infusion; IV Intake: 150ml vg1 Medication: 12:36 VIS not applicable for this client. vg1 Intake: 14:45 IV: 150ml; Total: 150ml. vg1 Outcome: 13:29 Decision to Hospitalize by Provider. jr8 17:41 Admitted to Tele accompanied by tech, room 221, with chart, Report called to receiving vg1 nurse 17:42 Condition: good vg1 17:42 Instructed on the need for admit. 17:50 Patient left the ED. iw Signatures: Dispatcher [employer] Sarah Davey, RN RN Manule Lopez em1 Marshall Thrasher PA PA jr8 Danika Mcgee RN RN vg1 Meera Arreguin tp1 Daniela Escalona RN RN melchor Corrections: (The following items were deleted from the chart) 17:42 17:41 Admitted to Tele accompanied by gerald perkins vg1
[2022-02-26] MEDS ORDERED: Levofloxacin 750mg IV 750 MG/150 ML BAG IV ONE (13:50)
--- NOTE | 2022-02-26 14:26 | P.CNS ---
Date of Consult: 02/26/22 Reason for Consult: ESRD , hyperkalemia Chief Complaint: fever History of Present Illness: A 56 Y.o man with PMHx of failed kidney transplant ESRD now oN hD TTSat via AVF Pt was sent from dialysis center for fever pt had dry cough for the last 2 days, associated with fever and poor oral intake, today presented to [facility] dialysis for his treatment , found to be febrile and sent to ER pt denied hemoptysis, recent travel or sick contact , he is up to date with his vaccines Allergies No Known Allergies Allergy (Unverified 03/19/18 00:14) - Past Medical/Surgical History Diabetic: No -: End-stage renal disease on hemodialysis -: Hypertension -: Kidney transplant - Family History Brother History Unknown: Yes -: Cancer (Throat cancer) - Social History Smoking Status: Never smoker Alcohol use: No CD- Drugs: No Place of Residence: Home A/p #ESRD on HD TTS Dialysis today renal dose medications I/O # fever pt denied recent travel or sick contact likely due to Pneumonia F/U cultures cont Abx #Hyperkalemia HD today with 2K bath #mild hyponatremia will correct with dialysis # Anemia of chronic kidney disease will resume Epogen # metabolic bone disease resume binders total time spent 65 minutes , including documentation, placing orderers and discussing with Pt and medical team Allergies No Known Allergies Allergy (Unverified 03/19/18 00:14) - Family History Brother History Unknown: Yes Medical History: Cancer (Throat cancer) Review of Systems General: Fever, Chills Eyes: Unremarkable ENT: Unremarkable Respiratory: Cough Cardiovascular: Unremarkable Gastrointestinal: Unremarkable Musculoskeletal: Unremarkable Neurological: Unremarkable Physical Examination General: Oriented x3, Mild distress HEENT: Atraumatic, Normocephalic Neck: Supple, No LAD, Without JVD or thyroid abnormality Respiratory: Clear to auscultation bilaterally, Normal air movement Cardiovascular: No edema, Normal pulses, Normal S1 S2, No rubs, No murmurs Gastrointestinal: Soft and benign, Non-distended, No ascites, No tenderness, No rebound, No guarding Musculoskeletal: No clubbing, No swelling Integumentary: No rashes, No breakdown External genitalia: No edema, No lesions Laboratory Data (last 24 hrs) 02/26/22 12:24: PT 14.4 H, INR 1.30, APTT 37.5 H 05/21/22 12:24: Sodium 131 L, Potassium 5.2 H, BUN 53 H, Creatinine 8.05 H*, Glucose 177 H, Total Bilirubin 1.2 H, AST 17, ALT 20, Alkaline Phosphatase 79 02/26/22 12:24: WBC 8.3, Hgb 8.4 L, Hct 25.9 L, Plt Count 209
--- NOTE | 2022-02-26 14:41 | P.HP ---
Certification for Inpatient Patient admitted to: Inpatient With expected LOS: >2 Midnights Practitioner: I am a practitioner with admitting privileges, knowledge of patient current condition, hospital course, and medical plan of care. Services: Services provided to patient in accordance with Admission requirements found in Title 42 Section 412.3 of the Code of Federal Regulations Patient History Date of Service: 02/26/22 Reason for admission: fever History of Present Illness: 69-year-old gentleman with a history of end-stage renal disease on hemodialysis, history of kidney transplant, immunosuppression was noted to have fever, and reporting generalized weakness at hemodialysis today. EMS was called and patient brought to the emergency department for evaluation. Patient was noted to be febrile by EMS. He reports a cough of 2 days duration. He also reported frequent diarrhea-watery bowel movement over the past couple of days. Symptoms associated with loss of appetite. He denies any shortness of breath or chest pain. He denied any hemoptysis. History of kidney transplant 30 years ago, and started dialysis 3 years ago. Blood work done in the emergency department demonstrated leukocytosis. Lactate normal. Patient meets criteria for sepsis with leukocytosis and fever. He was given IV Levaquin and Rocephin in the ED. He is admitted for further management. Allergies No Known Allergies Allergy (Unverified 03/19/18 00:14) - Past Medical/Surgical History Diabetic: No -: End-stage renal disease on hemodialysis -: Hypertension -: Kidney transplant - Family History Brother History Unknown: Yes -: Cancer (Throat cancer) - Social History Smoking Status: Never smoker Alcohol use: No CD- Drugs: No Place of Residence: Home Review of Systems Other: Except as documented, all other systems reviewed and negative. Physical Examination - Physical Exam General: Alert, In no apparent distress, Oriented x3, Other (Cachectic) HEENT: Atraumatic, PERRLA, Mucous membr. moist/pink, Sclerae nonicteric Neck: Supple, JVD not distended Respiratory: Clear to auscultation bilaterally, Normal air movement Cardiovascular: No edema, Regular rate/rhythm, Normal S1 S2 Capillary refill: <2 Seconds Gastrointestinal: Normal bowel sounds, Soft and benign, Non-distended, No tenderness Musculoskeletal: No swelling, No tenderness Integumentary: No rashes, No erythema, No cyanosis Neurological: Normal speech, Normal strength at 5/5 x4 extr, Cranial nerves 3-12 intact Lymphatics: No axilla or inguinal lymphadenopathy - Studies Laboratory Data (last 24 hrs) 02/26/22 12:24: PT 14.4 H, INR 1.30, APTT 37.5 H 02/26/22 12:24: Sodium 131 L, Potassium 5.2 H, BUN 53 H, Creatinine 8.05 H*, Glucose 177 H, Total Bilirubin 1.2 H, AST 17, ALT 20, Alkaline Phosphatase 79 02/26/22 12:24: WBC 8.3, Hgb 8.4 L, Hct 25.9 L, Plt Count 209 Microbiology Data (last 24 hrs): 02/26/22 12:19 Nasopharnyx Influenza Type A Antigen Screen - Final 02/26/22 12:19 Nasopharnyx Influenza Type B Antigen Screen - Final Assessment and Plan - Problems (Diagnosis) (1) Pneumonia Current Visit: Yes Status: Acute (2) End-stage renal disease on hemodialysis Current Visit: Yes Status: Acute (3) Hypertension Current Visit: Yes Status: Acute (4) Sepsis Current Visit: Yes Status: Acute - Plan Patient at risk for healthcare acquired pneumonia due to hemodialysis. Also at risk for immunosuppression given history of kidney transplant on immun osuppressive medications. Will admit patient to the medical floor. Treat pneumonia with IV antibiotics-Levaquin and vancomycin. Bronchodilators as needed Follow blood culture. Monitor CBC to follow leukocytosis Nephrology consulted regarding ESRD. Supportive measures Diet as tolerated We will consult and continue home medications including immunosuppressants. - Advance Directives Does patient have a Living Will: No Does patient have a Durable POA for Healthcare: No
[2022-02-26] MEDS ORDERED: EPOETIN 4,000 UNIT/ML VIAL IV SCH (14:45)
[2022-02-26] MEDS ORDERED: ACETAMINOPHEN 500 MG TAB PO PRN (16:56)
[2022-02-26] MEDS ORDERED: ONDANSETRON 4 MG/2 ML VIAL IV PRN (16:56)
[2022-02-26] MEDS ORDERED: VANCOMYCIN 1 GM in NA CHLORIDE 0.9% 250 ML IVPB SCH (16:56)
[2022-02-26] MEDS ORDERED: IPRATROPIUM BROM 0.5MG/2.5ML NEB SCH (16:56)
[2022-02-26] MEDS ORDERED: ALBUTEROL 2.5 MG/3 ML NEB SOL NEB PRN (16:56)
[2022-02-26] MEDS ORDERED: HEPARIN 5000 UNIT/ML 1 ML VIAL SQ SCH (17:00)
[2022-02-26] MEDS ORDERED: IPRATROPIUM BROM 0.5MG/2.5ML ONE (17:17)
[2022-02-26 17:32] VITALS: O2SAT 100
[2022-02-26 17:54] VITALS: BP 153/86; TEMP 100
--- NOTE | 2022-02-27 13:48 | P.DS ---
Admission Date: 02/26/22 Discharge Date: 02/27/22 Disposition: AMA-LEFT AGAINST MEDICAL ADVIC Discharge Condition: FAIR Reason for Admission: fever - Problems (1) Pneumonia Status: Acute (2) End-stage renal disease on hemodialysis Status: Acute (3) Hypertension Status: Acute (4) Sepsis Status: Acute Brief History of Present Illness: 69-year-old gentleman with a history of end-stage renal disease on hemodialysis, history of kidney transplant, immunosuppression was noted to have fever, and reporting generalized weakness at hemodialysis today. EMS was called and patient brought to the emergency department for evaluation. Patient was noted to be febrile by EMS. He reports a cough of 2 days duration. He also reported frequent diarrhea-watery bowel movement over the past couple of days. Symptoms associated with loss of appetite. He denies any shortness of breath or chest pain. He denied any hemoptysis. History of kidney transplant 30 years ago, and started dialysis 3 years ago. Blood work done in the emergency department demonstrated leukocytosis. Lactate normal. Patient meets criteria for sepsis with leukocytosis and fever. He was given IV Levaquin and Rocephin in the ED. He was admitted for further management. Hospital Course: Patient admitted to the medical floor and started on aggressive antibiotic therapy. Blood cultures obtained in the ED. Patient seen and evaluated by nephrology-Dr. Branch. According to report, patient refused hemodialysis and signed out AGAINST MEDICAL ADVICE. Vital Signs/Physical Exam: Temp Pulse Resp BP Pulse Ox 100.0 F 81 22 H 153/86 H 02/26/22 12:28 02/26/22 12:28 02/26/22 12:28 02/26/22 12:28 Laboratory Data at Discharge: WBC 8.3 K/uL (4.3-10.9) 02/26/22 12:24 Hgb 8.4 g/dL (13.6-17.9) L 02/26/22 12:24 Hct 25.9 % (39.6-49.0) L 02/26/22 12:24 Plt Count 209 K/uL (152-406) 02/26/22 12:24 PT 14.4 SECONDS (9.5-12.5) H 02/26/22 12:24 INR 1.30 02/26/22 12:24 APTT 37.5 SECONDS (24.3-36.9) H 02/26/22 12:24 Sodium 131 mmol/L (136-145) L 02/26/22 12:24 Potassium 5.2 mmol/L (3.5-5.1) H 02/26/22 12:24 BUN 53 mg/dL (7-18) H 02/26/22 12:24 Creatinine 8.05 mg/dL (0.55-1.3) H* 02/26/22 12:24 Glucose 177 mg/dL (74-106) H 02/26/22 12:24 Total Bilirubin 1.2 mg/dL (0.2-1.0) H 02/26/22 12:24 AST 17 U/L (15-37) 02/26/22 12:24 ALT 20 U/L (12-78) 02/26/22 12:24 Alkaline Phosphatase 79 U/L (45-117) 02/26/22 12:24 Followup: LETICIA KELLY [Primary Care Provider] -
--- NOTE | 2022-02-28 11:29 | EKG ---
Test Date: 2022-02-26 Test Time: 12:44:43 Rn Oncology: VIDHI MEASUREMENT RESULTS: Intervals: Rate: 77 KS: 182 QRSD: 90 QT: 424 QTc: 479 [place]: P: 80 KS: 182 QRS: 76 T: 73 INTERPRETIVE STATEMENTS: Normal sinus rhythm Left ventricular hypertrophy with repolarization abnormality Abnormal ECG Compared to ECG 04/06/2019 10:28:45 Left ventricular hypertrophy now present Early repolarization now present Electronically Signed On 02-28-22 11:23:52 CDT by Chad Melendez
[2022-02-28] MEDS ORDERED: Levofloxacin500mg IV 500 MG/100 ML BAG IV SCH (15:00)
[2022-02-28] MEDS ORDERED: Levofloxacin 750mg IV 750 MG/150 ML BAG IV SCH (15:00)
== END 2022-02-26 19:00 | disposition left against medical advice (07) | DRG 871 ==
LOC: ER 12:15 → ERHOLD 14:49
PROVIDERS: ADMIT Internal Medicine; ATTEND Internal Medicine
DX: A41.9 Sepsis, unspecified organism (principal); J18.9 Pneumonia, unspecified organism; N18.6 End stage renal disease; E87.1 Hypo-osmolality and hyponatremia; T86.12 Kidney transplant failure; I12.0 Hypertensive chronic kidney disease with stage 5 chronic kidney disease or end stage renal disease; Z94.0 Kidney transplant status; E87.5 Hyperkalemia; D63.1 Anemia in chronic kidney disease; Z99.2 Dependence on renal dialysis; Z53.29 Procedure and treatment not carried out because of patient's decision for other reasons; Z91.15 Patient's noncompliance with renal dialysis; Z20.822 Contact with and (suspected) exposure to COVID-19
CPT/HCPCS: 36415; 71045; 80053; 83605; 85025; 85610; 85730; 87040; 87804; 93005; 94640; 96365; 96367; 99285; U0003